=== PATIENT | female | born 1945 | race Caucasian/White ===

== ENCOUNTER 2019-05-24 17:28 | Emergency (ER) | payer MEDICARE, MEDICAID, SELFPAY ==
[2019-05-24 17:30] VITALS: BP 167/99; PULSE 103; RESP 18; TEMP 36.6; O2SAT 93; BMI 43.2
[2019-05-24 17:39] VITALS: BP 166/101; PULSE 87; RESP 16; O2SAT 82; O2SAT 96
--- NOTE | 2019-05-24 17:42 | ED_ITS ---
HPI - Back Pain/Injury General: Chief Complaint: Back Pain/Injury Stated Complaint: RIGHT SIDE BACK PAIN S/P FALL Time Seen by Provider: 05/24/19 17:42 History of Present Illness: HPI Narrative: Patient states she was getting out of bed to put on her panties and brawl this morning and at 930 she twisted and fell backwards striking her back on the floor she has been able to move today but her low back is hurt. Family decided she should come in and get evaluated patient says her low back hurts denies any pain radiate out anywhere problems urination no nausea and vomiting and she fell because she tripped while she is try to stick her foot inside her panties MD elicited complaint: back pain, back injury and fall Pertinent past history: prior back pain Onset (ago): hour(s) (0 930) Timing: constant Severity: moderate Pain scale (0-10): 6 Similar Symptoms Previously: Yes Quality: aching Location: lumbar spine Radiation: none Exacerbating factors: movement and walking Relieving factors: immobilization Context: turning/twisting and fall Associated symptoms: Reports no associated symptoms; Deny abdominal pain, chills, fever(s), nausea or vomiting Work related injury: No Review of Systems Const: Denies: fever, chills or body aches Eyes: Denies: change in vision or blurry vision ENMT: Denies: throat pain or nasal congestion Card: Reports: other; Denies: chest pain or shortness of breath on exertion Resp: Denies: shortness of breath, productive cough or non-productive cough GI: Denies: abdominal pain, nausea or vomiting Musc: Reports: back pain; Denies: extremity pain Skin/Breast: Denies: rash Neuro: Denies: headache Psych: Denies: anxiety or depression Hamlet/Lymph: Denies: easy bruising PFSH ED PFSH: Social History Smoking and tobacco status: former smoker Physical Exam Const: COMMON NORMALS: no apparent distress, average body habitus and oriented x3 HENMT: COMMON NORMALS: normocephalic HEAD & SCALP: normal to inspection and normocephalic FACE & SINUS: normal facial exam Eye: COMMON NORMALS: conjunctivae normal GENERAL EYE: normal appearance of both eyes CONJUNCTIVA: Yes conjunctivae normal Neck/C-Spine: COMMON NORMALS: no JVD Chest: COMMONS NORMALS: inspection of chest normal Resp: COMMON NORMALS: normal respiratory effort and clear to auscultation bilaterally AUSCULTATION: clear to auscultation bilaterally Cardio: COMMON NORMALS: no JVD, regular rate and regular rhythm RATE: regular rate RHYTHM: regular rhythm GI: COMMON NORMALS: normal to inspection, nondistended, normoactive bowel sounds Back/Pelvis: LUMBAR SPINE/LOWER BACK: Yes normal to inspection, Yes pain with ROM and Yes lumbar spinal tenderness Extremity: COMMON NORMALS: normal to inspection and full ROM Neuro: COMMON NORMALS: oriented x3 Course Vital Signs: Vital signs: Vital Signs Temperature 97.9 F 05/24/19 17:30 Pulse Rate 87 05/24/19 17:39 Respiratory Rate 16 05/24/19 17:39 Blood Pressure 166/101 05/24/19 17:39 Pulse Oximetry 96 05/24/19 17:39 MDM - Back Pain/Injury Imaging Data^: Other Xray: My impression: Lumbar with no fracture, decreased vertrebral body height t12 Coding Level of Care Code ED 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
--- NOTE | 2019-05-24 17:46 | XR_ITS ---
WS: [id number] LUMBAR SPINE: 3 VIEWS TECHNIQUE: AP, lateral and L5-S1 spot. HISTORY: fall COMPARISON: None available. Posterior alignment is normal. Mild disc space narrowing at L5-S1 with facet arthritis. T12 compressi on fracture is new since 05/30/2007. Age indeterminate. No retropulsion. No loss of disc space or vertebral body height. Lucency extending obliquely through the LEFT sacrum towards the SI joint. Lucency extends across the midline. Bilateral hip arthroplasties. XR/XR lumbar spine 2-3V* [id number] IMPRESSION: 1. No acute lumbar spine fracture. 2. Age-indeterminate 20% compression fracture T12. 3. Possible sacral fracture. If patient has persistent pelvic pain recommend f ollow-up CT evaluation.
[2019-05-24] MEDS: cloNIDine 0.1 mg Tablet 0.2 MG PO (19:11)
[2019-05-24] MEDS: ketorolac 60 mg/2 mL INJ IM (19:12)
== END 2019-05-24 19:38 | disposition home or self-care (01) ==
LOC: ER 19:05
PROVIDERS: Emergency Provider Nurse Practitioner Family; Family Provider Physician Assistant Medical; PCP Physician Assistant Medical
DX: M54.5 Low back pain (principal); I10 Essential (primary) hypertension; Z87.891 Personal history of nicotine dependence
CPT/HCPCS: 12345; 72100; 96372; 99281; 99282; 99283; J1885

== ENCOUNTER → 2019-06-11 08:21 | Outpatient (BNVA) | payer MEDICARE, MEDICAID, SELFPAY | PROVIDERS: Family Provider Physician Assistant Medical; PCP Physician Assistant Medical; Visit Provider Specialist | DX: G43.711 Chronic migraine without aura, intractable, with status migrainosus (principal); F44.5 Conversion disorder with seizures or convulsions | CPT/HCPCS: 64615; 99212; J0585 ==

== ENCOUNTER → 2019-09-03 09:29 | Outpatient (BNVA) | payer MEDICARE, MEDICAID, SELFPAY | PROVIDERS: Family Provider Physician Assistant Medical; PCP Physician Assistant Medical; Visit Provider Specialist | DX: G43.711 Chronic migraine without aura, intractable, with status migrainosus (principal); F44.5 Conversion disorder with seizures or convulsions | CPT/HCPCS: 64615; 99212; J0585 ==

== ENCOUNTER → 2020-01-21 09:22 | Outpatient (BNVA) | payer MEDICARE, MEDICAID, SELFPAY | PROVIDERS: Family Provider Physician Assistant Medical; PCP Physician Assistant Medical; Visit Provider Specialist | DX: G24.3 Spasmodic torticollis (principal); G25.0 Essential tremor; G43.711 Chronic migraine without aura, intractable, with status migrainosus | CPT/HCPCS: 64615; 99213; J0585 ==

== ENCOUNTER 2020-04-28 10:06 | Emergency (ER) | payer MEDICARE, MEDICAID, SELFPAY ==
[2020-04-28 10:14] VITALS: BP 138/90; PULSE 72; RESP 20; TEMP 36.6; O2SAT 95; BMI 34.7
[2020-04-28 10:22] VITALS: BP 138/90; PULSE 76; RESP 18; O2SAT 98
[2020-04-28 10:23] VITALS: PULSE 78
--- NOTE | 2020-04-28 10:23 | CT_ITS ---
WS: [id number] CT HEAD TECHNIQUE: Noncontrast CT of the head obtained from the skullbase to the vertex. CLINICAL INFORMATION: fall, hit head COMPARISON: 10 ,019 DLP: 788.[address] scans at [facility] use at least one of these dose optimization techniques: automat ed exposure control; mA and/or kV adjustment per patient size (includes targeted exams where dose is matched to clinical indication); or iterative reconstruction. FINDINGS: No evidence of intracranial hemorrhage or mass effect. Ventricular system and basal cisterns are elise nt. Mild small vessel changes with moderate parenchymal volume loss. Intracranial vascular calcificat ion. No extra-axial fluid collections. No evidence of mass or mass effect. Normal zambrano-white differen tiation. Mild mucosal thickening ethmoid air cells and right maxillary sinus. Mastoid air cells well aerated. CT/CT head wo con* [id number] IMPRESSION: 1. No evidence of intracranial hemorrhage or mass effect. 2. Mild small vessel changes. Moderate parenchymal volume loss worse in the fr ontal lobes. 3. No acute intracranial findings.
--- NOTE | 2020-04-28 10:23 | XR_ITS ---
WS: [id number] XR hand RT min 3V* [id number] REASON FOR EXAM: fall, trauma FINDINGS: Transverse nondisplaced fracture through the base of the first phalanx of the right fourth finger. Mild degenerative changes in the DIP and MIP joints. No soft tissue abnormality. XR/XR hand RT min 3V* [id number] IMPRESSION: Fracture fourth finger as above.
--- NOTE | 2020-04-28 10:26 | ED_ITS ---
HPI - Extremity Problem General: Chief complaint: Extremity Injury, Upper Stated complaint: FALL/ HAND PAIN Time Seen by Provider: 04/28/20 10:09 History of Present Illness: HPI Narrative: Patient arrives via ambulance with complaint of a fall today she tripped and while she was trying to get to her walker and she said she bent her right to middle fingers back and then sustained a laceration to her hand at the same time. Also hit the right side of her fore head denies loss of consciousness. Complaint: extremity pain and other (Hit head) Onset (ago): minute(s) Pain Consistency: now resolved Location: right and upper extremity Severity scale (1-10): 2 Quality: aching Radiation: none Associated symptoms: Reports no associated symptoms; Deny chest pain, fever(s) or rash Review of Systems Const: Denies: fever(s), chills or body aches Eyes: Denies: change in vision or blurry vision ENMT: Denies: throat pain or nasal congestion Card: Denies: chest pain or dyspnea on exertion Resp: Denies: dyspnea, productive cough or non-productive cough GI: Denies: abdominal pain, nausea or vomiting Musc: Reports: extremity pain (Right hand pain with laceration to palm from fall) Skin/Breast: Denies: rash Neuro: Denies: headache(s) Psych: Denies: anxiety or depression Hamlet/Lymph: Denies: easy bruising PFSH ED PFSH: Medical History COPD (chronic obstructive pulmonary disease) Diabetes Hyperlipidemia Hypertension Surgical History History of appendectomy History of History of cholecystectomy History of hip replacement History of hysterectomy History of knee replacement Family History Mother CAD (coronary artery disease) Diabetes Social History Smoking and tobacco status: never smoked Alcohol intake: current Alcohol intake frequency: other History of recent travel: No Physical Exam Const: COMMON NORMALS: no acute distress, average body habitus and patient oriented x3 HENMT: COMMON NORMALS: normocephalic HEAD & SCALP: normal to inspection and normocephalic FACE & SINUS: normal facial exam Eye: COMMON NORMALS: conjunctivae normal GENERAL EYE: appearance normal, both eyes and all related structures CONJUNCTIVA: Yes conjunctivae normal Neck/C-Spine: COMMON NORMALS: no JVD Chest: COMMONS NORMALS: normal inspection of the chest Resp: COMMON NORMALS: normal respiratory effort and clear to auscultation bilaterally AUSCULTATION: clear to auscultation bilaterally Cardio: COMMON NORMALS: no JVD, regular rate and regular rhythm RATE: regular rate RHYTHM: regular rhythm GI: COMMON NORMALS: Normal to inspection, nondistended, normoactive bowel sounds present Extremity: COMMON NORMALS: normal to inspection and full ROM RIGHT UPPER EXTREMITY: Yes hand & digits (Patient able to move all digits neurovascular intact no swelling) Neuro: COMMON NORMALS: patient oriented x3, CN's II-XII intact bilaterally, moves all extremities, no focal motor deficits and no sensory deficits noted Skin: NARRATIVE SKIN EXAM: Large laceration horizontally across palm of right hand no active bleeding OTHER: General right side of forehead Procedures Laceration Laceration 1: Site: hand Side (If applicable): right Size (cm): 6 Description: linear Depth: simple, single layer Local Anesthetic: lidocaine 1% Amount of anesthesia used (mL): 2 Pre-repair: wound explored, irrigated extensively and deep structures intact Skin layer closed with: vicryl Size (cm): 4-0 Number of sutures: 7 Technique: simple, interrupted Course Vital Signs: Vital signs: Vital Signs Temperature 97.8 F 04/28/20 10:14 Pulse Rate 78 04/28/20 10:23 Respiratory Rate 18 04/28/20 10:22 Blood Pressure 138/90 04/28/20 10:22 Pulse Oximetry 98 04/28/20 10:22 MDM - Extremity (Nontraumatic) MDM Narrative: Medical decision making narrative: CT the head was negative. Laceration across the palm could have possibly involved open fracture from that fourth phalanges but most likely not .sutures were done and wound was not tightly sutured due to possibility of open fracture. Patient able to move f ingers without difficulty has minimal pain no other injuries noted is follow-up orthopedic clinics for follow-up etiology said fracture was nondisplaced Discharge Plan Discharge Patient Disposition: Home Clinical Impression: Laceration Fall Qualifiers: Encounter type: initial encounter Qualified Code(s): W19.XXXA - Unspecified fall, initial encounter Open displaced fracture of phalanx of ring finger Qualifiers: Encounter type: initial encounter Phalanx: proximal Laterality: right Qualified Code(s): S62.614B - Displaced fracture of proximal phalanx of right ring finger, initial encounter for open fracture Condition: Stable Prescriptions: New tramadol 50 mg tablet 50 mg PO TID PRN (Reason: pain) Qty: 7 RF: 0 Keflex 500 mg capsule 500 mg PO TID 7 Days Qty: 21 RF: 0 No Action ammonium lactate 12 % cream 1 applic TOPICAL DAILY RF: 0 aspirin [Adult Low Dose Aspirin] 81 mg tablet,delayed release (DR/EC) 81 mg PO DAILY RF: 0 calcium carbonate 500 mg calcium (1,250 mg) tablet 500 mg PO BID RF: 0 dicyclomine 20 mg tablet 20 mg PO QID RF: 0 furosemide 20 mg tablet 10 mg PO QAM RF: 0 gabapentin 600 mg tablet 600 mg PO BID RF: 0 loratadine [Allergy Relief (loratadine)] 10 mg tablet 10 mg PO DAILY RF: 0 pantoprazole 40 mg tablet,delayed release (DR/EC) 40 mg PO DAILY RF: 0 potassium chloride 10 mEq tablet extended release 20 meq PO BID RF: 0 ropinirole 0.5 mg tablet 1 mg PO DAILY RF: 0 simvastatin 40 mg tablet 40 mg PO DAILY RF: 0 Spiriva with HandiHaler 18 mcg capsule, w/inhalation device 1 cap INHALATION DAILY RF: 0 tizanidine 4 mg capsule 4 mg PO Q8H PRNRF: 0 topiramate [Topamax] 100 mg tablet 100 mg PO BID RF: 0 tramadol 50 mg tablet 50 mg PO Q8H PRNRF: 0 albuterol sulfate [Ventolin HFA] 90 mcg/actuation HFA aerosol inhaler 2 puff INHALATION Q6H PRNRF: 0 ascorbic acid (vitamin C) 500 mg capsule, extended release 500 mg PO DAILY RF: 0 cholecalciferol (vitamin D3) 50 mcg (2,000 unit) capsule 50 mcg PO DAILY RF: 0 Discharge Orders: Discharge ED (Routine); Ordered 04/28/20 Ordered By: Patricio Bustos Referrals: Salvador Bertrand [Primary Care Provider] - Discharge Diet: Usual diet Discharge Activity: Increase activity as tolerated Patient Instructions: Laceration (ED), Finger Fracture (ED), Opioid Safety Activity Restrictions/Additional Instructions: Follow-up with medical provider as directed. Take medications as prescribed. Return to the ER or your medical provider if condition worsens. Please read and understand discharge instructions. If any questions ask please. Wear splint until seen by orthopedics. Watch for signs symptoms of infection in the palm. Coding Level of Care Code ED Facilities Maintenance Worker for Milton Parry Exam Comprehensive
[2020-04-28] MEDS: lidocaine 1% INJ 20 mL 5 ML INTRADERMA (10:50)
[2020-04-28] MEDS: TRAMadol 50 mg Tablet PO (11:31)
[2020-04-28] MEDS: cephALEXin 500 mg Capsule PO (11:31)
--- NOTE | 2020-04-28 12:30 | DCPLANNER ---
senior asset manager had message to schedule a follow up appointment for patient with ortho. senior asset manager called the ortho clinic, spoke with Argelia, gave clinic patients information. senior asset manager was told that patients information would be printed and reviewed. Clinic will call patient with appointment information.
--- NOTE | 2020-05-04 07:37 | DCPLANNER ---
Patient has a follow up appointment scheduled for Monday, May 04, 2020 at 10:[address] Sesay. Clinic will call patient with appointment information.
--- NOTE | 2020-05-05 15:55 | DCPLANNER ---
Patient had a follow up appointment scheduled for 05.04.[address] Sesay at [facility] - patient did attend appointment.
== END 2020-04-28 12:03 | disposition home or self-care (01) ==
PROVIDERS: Emergency Provider Nurse Practitioner Family; PCP Family Medicine
DX: S62.614B Displaced fracture of proximal phalanx of right ring finger, initial encounter for open fracture (principal); Z79.82 Long term (current) use of aspirin; S61.411A Laceration without foreign body of right hand, initial encounter; W01.0XXA Fall on same level from slipping, tripping and stumbling without subsequent striking against object, initial encounter; J44.9 Chronic obstructive pulmonary disease, unspecified; E11.9 Type 2 diabetes mellitus without complications; E78.5 Hyperlipidemia, unspecified; I10 Essential (primary) hypertension
CPT/HCPCS: 12002; 29125; 70450; 73130; 99283

== ENCOUNTER → 2020-05-04 11:04 | Outpatient (BNVA) | payer MEDICARE, MEDICAID, SELFPAY | PROVIDERS: PCP Family Medicine; Referring Provider Nurse Practitioner Family; Visit Provider Orthopaedic Surgery | DX: S62.614B Displaced fracture of proximal phalanx of right ring finger, initial encounter for open fracture (principal); W19.XXXA Unspecified fall, initial encounter; Z46.89 Encounter for fitting and adjustment of other specified devices; X58.XXXD Exposure to other specified factors, subsequent encounter | CPT/HCPCS: 73130; 97760; L3984 ==

== ENCOUNTER 2020-05-04 14:37 | Outpatient (CLI) | payer MEDICARE, MEDICAID, SELFPAY | END 2020-05-04 14:38 | disposition home or self-care (01) | LOC: SPT 14:37 | PROVIDERS: PCP Family Medicine; Visit Provider Orthopaedic Surgery | DX: Z46.89 Encounter for fitting and adjustment of other specified devices (principal); S62.614B Displaced fracture of proximal phalanx of right ring finger, initial encounter for open fracture; X58.XXXD Exposure to other specified factors, subsequent encounter | CPT/HCPCS: 97760; L3984 ==

== ENCOUNTER → 2020-05-11 10:31 | Outpatient (BNVA) | payer MEDICARE, MEDICAID, SELFPAY | PROVIDERS: PCP Family Medicine; Visit Provider Orthopaedic Surgery | DX: S62.614A Displaced fracture of proximal phalanx of right ring finger, initial encounter for closed fracture (principal); W19.XXXA Unspecified fall, initial encounter | CPT/HCPCS: 73130 ==

== ENCOUNTER → 2020-05-12 11:04 | Outpatient (BNVA) | payer MEDICARE, MEDICAID, SELFPAY | PROVIDERS: PCP Family Medicine; Visit Provider Specialist | DX: G43.711 Chronic migraine without aura, intractable, with status migrainosus (principal); G24.3 Spasmodic torticollis; G25.0 Essential tremor | CPT/HCPCS: 64615; 64616; J0585 ==

== ENCOUNTER → 2020-06-01 10:15 | Outpatient (BNVA) | payer MEDICARE, MEDICAID, SELFPAY | PROVIDERS: PCP Family Medicine; Visit Provider Orthopaedic Surgery | DX: S62.614A Displaced fracture of proximal phalanx of right ring finger, initial encounter for closed fracture (principal); W19.XXXA Unspecified fall, initial encounter; X58.XXXA Exposure to other specified factors, initial encounter | CPT/HCPCS: 73130 ==

== ENCOUNTER 2020-06-06 09:09 | Emergency (ER) | payer MEDICARE, MEDICAID, SELFPAY ==
[2020-06-06 09:11] VITALS: BP 140/82; PULSE 79; RESP 16; O2SAT 95; BMI 33.0
--- NOTE | 2020-06-06 09:13 | ECG_ITS ---
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 f
--- NOTE | 2020-06-06 09:13 | XR_ITS ---
NOTE: Report was unsigned for reason: Order was edited. Original Signature date and time was: 06/06/20 @ 928 WS: [id number] Exam: XR hip RIGHT 2-3V wo/w pel* [id number] Date/Time of Exam: 06/06/2020 9:13 AM Reason For Exam: pain after fall A total hip prosthesis is in place in satisfactory position. No sign of fracture or loosening. Soft tissues are unremarkable. [facility] RT 2-3V wo/w pel* [id number] IMPRESSION: 1. Total hip arthroplasty intact. No fracture or loosening.
--- NOTE | 2020-06-06 09:13 | CT_ITS ---
WS: [id number] CT HEAD NONCONTRAST HISTORY: closed head injury TECHNIQUE: Contiguous axial imaging performed through the brain in 2.5 mm imaging. Bone and soft tiss ue windows. Sagittal and coronal reformats reviewed. All CT scans at [facility] use at ast one of these dose optimization techniques: automated exposure control; mA and/or kV adjustment pe r patient size (includes targeted exams where dose is matched to clinical indication); or iterative r econstruction. DLP: 802.1 mGy.cm COMPARISON: None available. No acute intracranial hemorrhage, midline shift or mass effect. Moderate atrophy with mild chronic microvascular ischemic changes. No large territory infarct. Ventricles: Normal size with no hydrocephalus. Moderate atherosclerosis in the distal vertebral and distal intracranial carotid arteries. Paranasal sinuses: As visualized are clear. Mastoid air cells: Well pneumatized. Calvarium and scalp: No calvarial fracture. There is a large acute hematoma measuring 2.1 x 3.5 cm ce ntered over the lateral RIGHT orbit. Hematoma extends preseptal but there is no displacement of the g lobe. No fracture identified. No air-fluid levels in the adjacent sinus. CT/CT head wo con* [id number] IMPRESSION: 1. No acute intracranial hemorrhage or edema. 2. Large hematoma centered over the RIGHT orbit and frontal bone. No associate d fractures.
--- NOTE | 2020-06-06 09:13 | CT_ITS ---
WS: [id number] CT CERVICAL SPINE HISTORY: pain after fall TECHNIQUE: Contiguous 2.5 mm axial imaging performed through the entire cervical spine. Sagittal and coronal reformats also performed. All CT scans at [facility] use at least one of these do se optimization techniques: automated exposure control; mA and/or kV adjustment per patient size (inc ludes targeted exams where dose is matched to clinical indication); or iterative reconstruction. DLP: 824.44 mGy.cm COMPARISON: None available. Straightening of the normal lordosis. No acute fractures. Moderate disc space narrowing at C4-5, C5-6 and C6-7. C1 and C2 lateral masses are aligned odontoid is intact. Craniocervical junction is normal . C2-C3: Moderate LEFT facet joint arthritis and foraminal narrowing. C3-C4: Normal. C4-C5: Moderate LEFT foraminal stenosis and facet joint arthritis. C5-C6: Diffuse osteophytic ridging and annular disc bulging with facet joint arthritis. Central disc protrusion. Findings result in moderate central and bilateral foraminal stenosis, LEFT greater than R IGHT. C6-C7: Diffuse annular disc bulging with mild foraminal narrowing. C7-T1: Normal. Soft tissues are normal. Lung apices are clear. CT/CT cervical spin wo con* [id number] IMPRESSION: 1. No cervical spine fractures identified. 2. Multilevel areas of central and foraminal stenosis. Most significant at C5- 6.
[2020-06-06 09:29] LABS: Basophils % 0.7 %; Eosinophils # 0.1 10^3/uL (0.0-0.8); Eosinophils % 2.1 %; Hematocrit 45.3 % (37.0-47.0); Hemoglobin 14.7 g/dL (11.5-15.3); Lymphocytes # 2.3 10^3/uL (0.8-4.8); Lymphocytes % 40.5 %; Mean Corpuscular HGB Conc 32.5 g/dL (30.0-36.0); Mean Corpuscular Hemoglobin 31.3 pg (28.0-34.0); Mean Corpuscular Volume 96.6 fL (81-99); Mean Platelet Volume 11.4 fL (7.4-10.4); Monocytes # 0.4 10^3/uL (0.2-0.9); Monocytes % 6.9 %; Neutrophils # 2.79 10^3/uL (1.8-7.7); Neutrophils % 49.4 %; Nucleated Red Blood Cells % 0 %; Platelet Count 215 10^3/cmm (130-400); Red Blood Count 4.69 10^6/uL (4.1-5.3); White Blood Count 5.7 10^3/uL (4.0-10.0)
--- NOTE | 2020-06-06 09:33 | W.ED.FALL ---
HPI - Fall General: Chief Complaint: Fall Stated Complaint: FALL WITH HEAD TRAUMA Time Seen by Provider: 06/06/20 09:09 History of Present Illness: HPI Narrative: 74-year-old female presents emergency room with complaints of fall. She has a hematoma above her right eye is also complaining some right hip pain. She had a mechanical fall when her walker got tied up on some stairs. She denies loss of consciousness she is not on any anticoagulants. She denies any other injuries. MD complaint: fall Onset (ago): minute(s) Fall from: standing Fall witnessed: no Place fall occurred: home Loss of consciousness: None Prolonged down time: no Context: tripped/slipped Location of injury: head Location of injury - extremities: Right: shoulder and lower leg (Hip) Severity: mild Quality: aching Associated symptoms-after fall: Reports difficulty walking (Patient has baseline difficulty with gait uses walker); Denies abdominal pain, chest pain, confusion, headache(s), hematuria, lightheadedness, neck pain, numbness, short of breath or vertigo Review of Systems Const: Denies: fever(s), chills, body aches, change in appetite, fatigue or malaise ENMT: Denies: throat pain, ear or mastoid pain, nasal discharge or nasal congestion Card: Denies: chest pain or lightheadedness Resp: Denies: dyspnea, productive cough or non-productive cough GI: Denies: abdominal pain : Denies: hematuria Musc: Denies: neck pain Skin/Breast: Denies: rash or pruritus Neuro: Reports: difficulty walking (Patient has baseline difficulty with gait uses walker); Denies: headache(s), vertigo or confusion [facility] ED PFSH: Medical History COPD (chronic obstructive pulmonary disease) Diabetes Hyperlipidemia Hypertension Surgical History History of appendectomy History of History of cholecystectomy History of hip replacement History of hysterectomy History of knee replacement Family History Mother CAD (coronary artery disease) Diabetes Social History Smoking and tobacco status: never smoked Alcohol intake: current Alcohol intake frequency: other History of recent travel: No Physical Exam Const: COMMON NORMALS: no acute distress GENERAL APPEARANCE: cooperative and comfortable ORIENTATION/CONSCIOUSNESS: Yes awake, Yes oriented to person, Yes oriented to place and Yes oriented to time HENMT: COMMON NORMALS: normocephalic, hearing grossly normal bilaterally, external ears normal, EAC's normal, TM's normal bilaterally, Normal nasal mucous membranes and turbinates present, moist oral mucous membranes and oropharynx normal HEAD & SCALP: normocephalic NOSE: Normal nasal mucous membranes and turbinates present EXTERNAL EAR: Yes external ears normal EXTERNAL AUDITORY CANAL: EAC's normal TYMPANIC MEMBRANE: TM's normal bilaterally OTHER: Right lateral supraorbital ridge hematoma no step-offs no crepitus no obvious fracture extraocular movements are intact Eye: COMMON NORMALS: Equal, round and reactive pupils present, EOMs intact bilaterally, conjunctivae normal and no scleral icterus CONJUNCTIVA: Yes conjunctivae normal PUPIL: Yes Equal, round and reactive pupils present Neck/C-Spine: COMMON NORMALS: full ROM, no lymphadenopathy, supple and no JVD Lymph: LYMPHATIC: no lymphadenopathy noted and no lymphedema noted Resp: COMMON NORMALS: normal respiratory effort, No retractions, No use of accessory muscles and clear to auscultation bilaterally AUSCULTATION: clear to auscultation bilaterally Cardio: COMMON NORMALS: no JVD, regular rate, regular rhythm and No murmurs present (Cardio) RATE: regular rate RHYTHM: regular rhythm GI: COMMON NORMALS: Soft to palpation and No hepatosplenomegaly present AUSCULTATION: Yes normoactive bowel sounds PALPATION: Yes Soft to palpation, No Tenderness to palpation present (GI), No Guarding due to palpation present (GI) and Yes No hepatosplenomegaly present Extremity: COMMON NORMALS: normal to inspection, capillary refill normal, no clubbing, cyanosis or edema, no calf tenderness and no pedal edema Neuro: SENSORIUM/ORIENTATION: Yes oriented to person, Yes oriented to place and Yes oriented to time Skin: COMMON NORMALS: no rashes or lesions noted GENERAL SKIN EXAM: no rashes or lesions noted Course Vital Signs: Vital signs: Vital Signs Pulse Rate 87 06/06/20 10:22 Respiratory Rate 16 06/06/20 09:11 Blood Pressure 158/84 06/06/20 10:22 Pulse Oximetry 99 06/06/20 10:22 MDM - Fall MDM Narrative: Medical decision making narrative: No acute fractures imaging negative we will go and discharge patient home. Ice to the area Tylenol or ibuprofen as needed. Return if has any problems. Lab Data: Attestation: I reviewed the patient's lab results. Labs: Lab Results 06/06/20 06/06/20 06/06/20 Range/Units 08:33 08:33 10:18 WBC 5.7 (4.0-10.0) 10^3/ uL RBC 4.69 (4.1-5.3) 10^6/u L Hgb 14.7 (11.5-15.3) g/dL Hct 45.3 (37.0-47.0) % MCV 96.6 (81-99) fL MCH 31.3 (28.0-34.0) pg MCHC 32.5 (30.0-36.0) g/dL RDW 14.0 (12.1-15.1) % Plt Count 215 (130-400) 10^3/c mm MPV 11.4 H (7.4-10.4) fL Neut % (Auto) 49.4 % Lymph % (Auto) 40.5 % [place] % (Auto) 6.9 % Eos % (Auto) 2.1 % Baso % (Auto) 0.7 % Neut # (Auto) 2.79 (1.8-7.7) 10^3/u L Lymph # (Auto) 2.3 (0.8-4.8) 10^3/u L [place] # (Auto) 0.4 (0.2-0.9) 10^3/u L Eos # (Auto) 0.1 (0.0-0.8) 10^3/u L Baso # (Auto) 0.0 (0.0-0.1) 10^3/u L Nucleated RBC % (a uto) 0 % Nucleated RBCs # 0.0 /100WBC Sodium 141 (136-145) mmol/L Potassium 3.6 (3.5-5.1) mmol/L Chloride 103 (98-107) mmol/L Carbon Dioxide 24 (22-29) mmol/L Anion Gap 17.6 (5-19) BUN 10 (8-23) mg/dL Creatinine 0.9 (0.5-0.9) mg/dL GFR Calculation Not Reportable Glucose 119 H (65-115) mg/dL Calculated Osmolal ity 292 (285-295) mOsm/k g Calcium 9.4 (8.5-10.5) mg/dL Total Bilirubin 0.9 (0.15-1.2) mg/dL AST 21 (0-32) U/L ALT 12 (0-33) U/L Alkaline Phosphata se 61 (35-105) IU/L Total Protein 7.6 (6.6-8.7) g/dL Albumin 4.4 (3.5-5.2) g/dL Globulin 3.2 (1.3-4.6) g/dL Urine Color Yellow (Yellow) Urine Appearance Hazy A (CLEAR) Urine pH 5 (5-7) Ur Specific Gravit y 1.025 (1.005-1.030) Urine Protein Neg (Negative) Urine Glucose (UA) Norm (Normal) Urine Ketones Negative (Negative) Urine Blood Neg (Negative) Urine Nitrate Positive H (Negative) Urine Bilirubin Neg (Negative) Urine Urobilinogen Norm (Negative) mg/dL Ur Leukocyte [place] 1+ H (Negative) Urine RBC 0-4 H (0-2) /hpf Urine WBC 40-55 H (0-5) /hpf Ur Squamous Epith Cells 0-4 H (0-5) /hpf Amorphous Sediment Not Reportable Urine Bacteria 4+ H (NONE) /hpf Discharge Plan Discharge Patient Disposition: Home Clinical Impression: Fall, Closed head injury, Diabetes Condition: Stable Prescriptions: No Action ammonium lactate 12 % cream 1 applic TOPICAL DAILY RF: 0 aspirin [Adult Low Dose Aspirin] 81 mg tablet,delayed release (DR/EC) 81 mg PO DAILY RF: 0 calcium carbonate 500 mg calcium (1,250 mg) tablet 500 mg PO BID RF: 0 dicyclomine 20 mg tablet 20 mg PO QID RF: 0 furosemide 20 mg tablet 10 mg PO QAM RF: 0 gabapentin 600 mg tablet 600 mg PO BID RF: 0 loratadine [Allergy Relief (loratadine)] 10 mg tablet 10 mg PO DAILY RF: 0 pantoprazole 40 mg tablet,delayed release (DR/EC) 40 mg PO DAILY RF: 0 potassium chloride 10 mEq tablet extended release 20 meq PO BID RF: 0 ropinirole 0.5 mg tablet 1 mg PO DAILY RF: 0 simvastatin 40 mg tablet 40 mg PO DAILY RF: 0 Spiriva with HandiHaler 18 mcg capsule, w/inhalation device 1 cap INHALATION DAILY RF: 0 tizanidine 4 mg capsule 4 mg PO Q8H PRNRF: 0 topiramate [Topamax] 100 mg tablet 100 mg PO BID RF: 0 tramadol 50 mg tablet 50 mg PO Q8H PRNRF: 0 albuterol sulfate [Ventolin HFA] 90 mcg/actuation HFA aerosol inhaler 2 puff INHALATION Q6H PRNRF: 0 ascorbic acid (vitamin C) 500 mg capsule, extended release 500 mg PO DAILY RF: 0 cholecalciferol (vitamin D3) 50 mcg (2,000 unit) capsule 50 mcg PO DAILY RF: 0 (DME) Fast Form ulnar gutter See Rx Instructions .ROUTE .MEDSUPPLY Qty: 1 RF: 0 oxycodone-acetaminophen [Percocet] 5-325 mg tablet 1 tab PO Q4H PRN (Reason: pain) 7 Days Qty: 40 RF: 0 tramadol 50 mg tablet 50 mg PO TID PRN (Reason: pain) Qty: 7 RF: 0 Discharge Orders: Discharge ED (Routine); Ordered 06/06/20 Ordered By: Jose Clark Referrals: Salvador Bertrand [Primary Care Provider] - Discharge Diet: Usual diet Discharge Activity: Resume usual activity Patient Instructions: Opioid Safety Coding Level of Care Code ED 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
--- NOTE | 2020-06-06 09:34 | XR_ITS ---
WS: [id number] Exam: XR shoulder RT min 2V* [id number] Date/Time of Exam: 06/06/2020 9:34 AM Reason For Exam: pain No acute fracture or dislocation. There are 2 anchoring screws in the humeral head. Soft tissue calci fication along the humeral head suggesting calcific tendinitis or bursitis. Degenerative changes at t he AC joint. XR/XR shoulder RT min 2V* [id number] IMPRESSION: 1. No fracture or dislocation. 2. Soft tissue calcification along the humeral head suggesting calcific bursiti s and/or tendinitis.
[2020-06-06 09:45] VITALS: O2SAT 98
[2020-06-06 09:49] LABS: Alanine Aminotransferase 12 U/L (0-33); Albumin Level 4.4 g/dL (3.5-5.2); Alkaline Phosphatase 61 IU/L (35-105); Anion Gap 17.6 (5-19); Aspartate Amino Transferase 21 U/L (0-32); Blood Urea Nitrogen 10 mg/dL (8-23); Calcium 9.4 mg/dL (8.5-10.5); Carbon Dioxide 24 mmol/L (22-29); Chloride 103 mmol/L (98-107); Globulin 3.2 g/dL (1.3-4.6); Glucose 119 mg/dL (65-115); Osmolality Calculated 292 mOsm/kg (285-295); Potassium 3.6 mmol/L (3.5-5.1); Sodium 141 mmol/L (136-145); Total Bilirubin 0.9 mg/dL (0.15-1.2); Total Protein 7.6 g/dL (6.6-8.7)
[2020-06-06 10:22] VITALS: BP 158/84; PULSE 87; O2SAT 99
[2020-06-06 10:56] LABS: Add Urine Microscopic? YES; Bilirubin Urine Neg (Negative); Blood Urine Neg (Negative); Glucose Urine UA Norm (Normal); Ketones Urine Negative (Negative); Leukocyte Esterase Urine 1+ (Negative); Nitrate Urine Positive (Negative); Protein Urine Neg (Negative); Specific Gravity, Urine 1.025 (1.005-1.030); Urine Appearance Hazy (CLEAR); Urine Color Yellow (Yellow); Urobilinogen Urine Norm (Negative); pH Urine 5 (5-7)
[2020-06-06 10:57] LABS: Add Urine Culture? Yes; Bacteria Urine 4+ /hpf; RBC Urine 0-4 /hpf (0-2); Squamous Epithelial Cell Urine 0-4 /hpf (0-5); WBC Urine 40-55 /hpf (0-5)
[2020-06-06 12:14] VITALS: BP 155/83; PULSE 83; O2SAT 97
--- NOTE | 2020-06-06 12:28 | DCPLANNER ---
project program manager was asked to schedule a follow up appointment for patient with ortho for a fibular head fracture. project program manager called the ortho clinic, spoke with Argelia, gave clinic patients information. project program manager was told that patients information would be printed and reviewed. Clinic will call patient with appointment information.
--- NOTE | 2020-06-07 08:22 | DCPLANNER ---
Patient has a follow up appointment scheduled for Sunday, June 07, 2020 at 1:[address] Sesay at [facility]. Clinic will call patient with appointment information.
--- NOTE | 2020-06-08 10:53 | DCPLANNER ---
Patient had a follow up appointment scheduled for 06.07.[address] Sesay at [facility] - patient did not attend appointment.
== END 2020-06-06 12:27 | disposition home or self-care (01) ==
PROVIDERS: Emergency Provider Family Medicine; PCP Family Medicine
DX: S09.8XXA Other specified injuries of head, initial encounter (principal); E11.9 Type 2 diabetes mellitus without complications; Z79.82 Long term (current) use of aspirin; J44.9 Chronic obstructive pulmonary disease, unspecified; E78.5 Hyperlipidemia, unspecified; I10 Essential (primary) hypertension; W18.30XA Fall on same level, unspecified, initial encounter; Z79.899 Other long term (current) drug therapy
CPT/HCPCS: 70450; 72125; 73030; 73502; 80053; 81001; 85025; 87077; 87086; 87186; 93005; 99283

== ENCOUNTER → 2020-06-08 11:10 | Outpatient (BNVA) | payer MEDICARE, MEDICAID, SELFPAY | PROVIDERS: PCP Family Medicine; Visit Provider Specialist | DX: R26.81 Unsteadiness on feet (principal); W19.XXXA Unspecified fall, initial encounter; N39.0 Urinary tract infection, site not specified; Z71.89 Other specified counseling | CPT/HCPCS: 99214 ==

== ENCOUNTER 2020-06-08 13:15 | Outpatient (CLI) | payer MEDICARE, MEDICAID, SELFPAY | END 2020-06-08 13:16 | disposition home or self-care (01) | LOC: LAB 13:20 | PROVIDERS: PCP Family Medicine; Visit Provider Specialist | DX: N39.0 Urinary tract infection, site not specified (principal); R82.90 Unspecified abnormal findings in urine | CPT/HCPCS: 87077; 87086; 87186 ==

== ENCOUNTER 2020-07-26 15:42 | Outpatient (CLI) | payer MEDICARE, MEDICAID, SELFPAY ==
--- NOTE | 2020-07-26 15:50 | XR_ITS ---
WS: [id number] DEXA (DUAL ENERGY X-RAY ABSORPTIOMETRY) Bone mineral density was performed using a Genome machine. HISTORY: OSTEOPOROSIS, PATHOLOGICAL FRACTURE PRESENCE COMPARISON: 04/18/2016 Lumbar spine BMD (L1-L4): 1.157 g/cm2 T score: -0.2 Z score: 0.7 Left forearm BMD: 0.728 g/cm2. T score: -1.7 Z score: 0.6 Compared to the prior study from 04/18/2016. Lumbar spine bone mineral density has increased by 4.8%. Bilateral hips bone mineral density has increased by 3.6%. XR/XR DEXA axial skeleton* [id number] IMPRESSION: OSTEOPENIA based upon the WHO classification for females. Increase in bone mineral density in the lumbar spine and hips since the prior s tudy.
== END 2020-07-26 15:43 | disposition home or self-care (01) ==
PROVIDERS: PCP Family Medicine; Visit Provider Nurse Practitioner Family
DX: M81.0 Age-related osteoporosis without current pathological fracture (principal); M85.88 Other specified disorders of bone density and structure, other site
CPT/HCPCS: 77080

== ENCOUNTER → 2020-08-04 10:57 | Outpatient (BNVA) | payer MEDICARE, MEDICAID, SELFPAY | PROVIDERS: PCP Family Medicine; Visit Provider Specialist | DX: G43.711 Chronic migraine without aura, intractable, with status migrainosus (principal); G24.3 Spasmodic torticollis | CPT/HCPCS: 64615; 64616; J0585 ==

== ENCOUNTER → 2020-11-03 10:28 | Outpatient (BNVA) | payer MEDICARE, MEDICAID, SELFPAY | PROVIDERS: PCP Family Medicine; Visit Provider Specialist | DX: G24.3 Spasmodic torticollis (principal); G43.711 Chronic migraine without aura, intractable, with status migrainosus; F17.200 Nicotine dependence, unspecified, uncomplicated | CPT/HCPCS: 64615; 64616; J0585 ==

== ENCOUNTER → 2021-01-26 11:32 | Outpatient (BNVA) | payer MEDICARE, MEDICAID, SELFPAY | PROVIDERS: PCP Family Medicine; Visit Provider Specialist | DX: G43.711 Chronic migraine without aura, intractable, with status migrainosus (principal); G24.3 Spasmodic torticollis | CPT/HCPCS: 64615; 64616; J0585 ==

== ENCOUNTER → 2021-04-20 10:37 | Outpatient (BNVA) | payer MEDICARE, MEDICAID, SELFPAY | PROVIDERS: PCP Family Medicine; Visit Provider Specialist | DX: G43.711 Chronic migraine without aura, intractable, with status migrainosus (principal); F17.200 Nicotine dependence, unspecified, uncomplicated | CPT/HCPCS: 64615 ==

== ENCOUNTER → 2021-05-02 11:31 | Outpatient (BNVA) | payer MEDICARE, MEDICAID, SELFPAY | PROVIDERS: PCP Nurse Practitioner Family; Visit Provider Internal Medicine Cardiovascular Disease | DX: E11.9 Type 2 diabetes mellitus without complications; J44.9 Chronic obstructive pulmonary disease, unspecified; I50.9 Heart failure, unspecified; G25.0 Essential tremor; E78.2 Mixed hyperlipidemia; F17.210 Nicotine dependence, cigarettes, uncomplicated; I11.0 Hypertensive heart disease with heart failure | CPT/HCPCS: 99214 ==

== ENCOUNTER → 2021-07-13 10:17 | Outpatient (BNVA) | payer MEDICARE, MEDICAID, SELFPAY | PROVIDERS: PCP Nurse Practitioner Family; Visit Provider Specialist | DX: G43.711 Chronic migraine without aura, intractable, with status migrainosus (principal); G24.3 Spasmodic torticollis; F44.5 Conversion disorder with seizures or convulsions | CPT/HCPCS: 64615; J0585 ==

== ENCOUNTER 2021-09-23 07:36 | Inpatient (IN) | payer MEDICARE, MEDICAID, SELFPAY ==
[2021-09-23] VITALS (20 sets, daily range): BP systolic 133–176; BP diastolic 64–89; PULSE 63–93; RESP 16–20; TEMP 36.4–37.2; O2SAT 84–100; BMI 34.7; BMI 37.3
--- NOTE | 2021-09-23 07:38 | XRR_ITS ---
PROCEDURE INFORMATION: Exam: XR Right Knee Exam date and time: 09/23/2021 8:02 AM Age: 75 years old Clinical indication: Injury or trauma; Fall; Blunt trauma; Right; Prior surgery; Surgery date: 6+ months; Surgery type: Knee replacement TECHNIQUE: Imaging protocol: Radiologic exam of the Right knee. Views: 3 views. COMPARISON: No relevant prior studies available. FINDINGS: Bones/joints: A total knee prosthesis is present. There is an oblique fracture through the distal metaphysis of the femur above the prosthesis. The distal fragment is displaced about 4 cm laterally. Soft tissues: Normal. XR/XR knee RT 3V* [id number] IMPRESSION: Displaced oblique fracture of the distal metaphysis of the femur.
--- NOTE | 2021-09-23 07:41 | XRR_ITS ---
PROCEDURE INFORMATION: Exam: XR Right Hip Exam date and time: 09/23/2021 8:02 AM Age: 75 years old Clinical indication: Injury or trauma; Fall; Blunt trauma (contusions or hematomas); Right; Prior surgery; Surgery date: 6+ months; Surgery type: Total hip replacement TECHNIQUE: Imaging protocol: Radiologic exam of the Right hip. Views: 1 view hip with pelvis when performed. COMPARISON: CR XR hip RT 2-3V wo/w pel* [id number] 06/06/2020 9:16 AM FINDINGS: Bones/joints: A total right hip prosthesis projects in satisfactory position. No fracture, dislocation or other acute bony abnormality. Soft tissues: Unremarkable. XR/XR hip RT 2-3V wo/w pel* [id number] IMPRESSION: Satisfactory appearance of the hip prosthesis. No acute abnormality.
--- NOTE | 2021-09-23 07:53 | ED_ITS ---
HPI - Extremity Problem General: Chief complaint: Extremity Injury, Lower Stated complaint: RIGHT KNEE PAIN S/P FALL Time Seen by Provider: 09/23/21 07:38 Source: patient and EMS Mode of arrival: EMS Limitations: no limitations History of Present Illness: 75-year-old female who states that she was getting out of her wheelchair this morning and fell. States she fell directly on her knees states she twisted her right knee and has had severe knee pain since she was not able to stand or bear weight on that knee has some mild right hip pain as well denies hitting her head denies any other injuries at this time states her pain currently is an 8 out of 10 much worse with movement improved with rest. Associated symptoms: Deny chest pain, fever(s) or rash Review of Systems Const: Denies: fever(s), chills, body aches or change in appetite Eyes: Denies: blurry vision or eye discomfort ENMT: Denies: throat pain or dental pain Card: Denies: chest pain Resp: Denies: dyspnea GI: Denies: abdominal pain, nausea, vomiting or diarrhea : Denies: dysuria Musc: Reports: extremity pain Skin/Breast: Denies: rash Neuro: Denies: headache(s) Psych: Denies: depression [place]/Lymph: Denies: easy bruising All/Imm: Denies: urticaria PFSH ED PFSH: Medical History COPD (chronic obstructive pulmonary disease) Diabetes Hyperlipidemia Hypertension Surgical History History of appendectomy History of History of cholecystectomy History of hip replacement History of hysterectomy History of knee replacement Family History Mother CAD (coronary artery disease) Diabetes Social History Smoking and tobacco status: current every day smoker Alcohol intake: current Alcohol intake frequency: other History of recent travel: No Physical Exam Const: COMMON NORMALS: no acute distress, patient oriented x3 and healthy appearing HENMT: COMMON NORMALS: normocephalic and atraumatic HEAD & SCALP: normocephalic and atraumatic Eye: COMMON NORMALS: Equal, round and reactive pupils present and EOMs intact bilaterally PUPIL: Yes Equal, round and reactive pupils present Neck/C-Spine: COMMON NORMALS: full ROM and supple Chest: COMMONS NORMALS: normal inspection of the chest and normal palpation of entire chest wall Resp: COMMON NORMALS: normal respiratory effort, No retractions, No use of accessory muscles and clear to auscultation bilaterally AUSCULTATION: clear to auscultation bilaterally Cardio: COMMON NORMALS: regular rate, regular rhythm and No murmurs present (Cardio) RATE: regular rate RHYTHM: regular rhythm GI: COMMON NORMALS: Normal to inspection, nondistended, normoactive bowel sounds present, Soft to palpation, non-tender and no masses PALPATION: Yes Soft to palpation Extremity: NARRATIVE EXTREMITY EXAM: Tenderness and swelling over right knee distal pulses and sensation intact Neuro: COMMON NORMALS: patient oriented x3, moves all extremities and no focal motor deficits Psych: COMMON NORMALS: mental status grossly normal, Normal thought process pr esent and cooperative THOUGHT PROCESS: Normal thought process present Skin: COMMON NORMALS: no rashes or lesions noted and no wounds GENERAL SKIN EXAM: no rashes or lesions noted Course Vital Signs: Vital signs: Vital Signs Temperature 98.9 F 09/23/21 07:50 Pulse Rate 77 09/23/21 08:16 Respiratory Rate 20 H 09/23/21 07:58 Blood Pressure 154/88 09/23/21 08:16 Pulse Oximetry 84 L 09/23/21 08:16 Oxygen Delivery Me thod 09/23/21 07:50 Oxygen Flow Rate 2 09/23/21 07:50 MDM - Extremity (Nontraumatic) Medical Decision Making Patient presents here with distal femur fracture from a fall she has no other injuries I spoke to hospitalist along with orthopedist and will admit at this time. Lab Data Radiology Impressions Knee X-Ray 09/23/21 07:38 IMPRESSION: Displaced oblique fracture of the distal metaphysis of the femur. Hip/Pelvis X-Ray 09/23/21 07:41 IMPRESSION: Satisfactory appearance of the hip prosthesis. No acute abnormality. EKG Data EKG 1: I personally reviewed and interpreted this EKG as follows: EKG interpretation date: 09/23/21 EKG interpretation time: 08:27 Interpretation: nsr hr [address] or t wave abnormalities qrs 86 qtc 420 Discharge Plan Discharge Patient Disposition: Admitted As Inpatient Clinical Impression: Fall Femoral distal fracture Qualifiers: Encounter type: initial encounter Fracture type: closed Fracture morphology: unspecified fracture morphology Laterality: right Qualified Code(s): S72.401A - Unspecified fracture of lower end of right femur, initial encounter for closed fracture Condition: Stable Coding Level of Care Code ED 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
[2021-09-23] MEDS: ondansetron 2 mg/ML SDV 2 mL 4 MG IVP (07:57)
[2021-09-23] MEDS: morphine 4 mg/mL SDV 1 mL IVP (07:58)
--- NOTE | 2021-09-23 08:18 | XRR_ITS ---
PROCEDURE INFORMATION: Exam: XR Chest Exam date and time: 09/23/2021 8:45 AM Age: 75 years old Clinical indication: Injury or trauma; Fall; Blunt trauma (contusions or hematomas) TECHNIQUE: Imaging protocol: Radiologic exam of the chest. Views: 1 view. COMPARISON: CT cervical spin wo con* [id number] 06/06/2020 10:53 AM FINDINGS: Lungs: Unremarkable. No consolidation. Pleural spaces: Unremarkable. No pleural effusion. No pneumothorax. Heart/Mediastinum: Unremarkable. No cardiomegaly. Bones/joints: Unremarkable. XR/XR chest 1V portable [id number] IMPRESSION: No acute findings.
--- NOTE | 2021-09-23 08:27 | ECG_ITS ---
[facility] Test Date: 2021-09-23 Pat Name: Chanda Cedeno Department: Room: Gender: Female Transplant Case Manager: : 1945 Requested By: Estee Villegas Order Number: [id number] [place] MD: Ryan Jimenez M.D. Measurements Intervals [place] Rate: 81 P: 27 LA: 150 QRS: 4 QRSD: 86 T: -2 QT: 383 QTc: 445 Interpretive Statements SINUS RHYTHM MINIMAL ST DEPRESSION [0.025+ mV ST DEPRESSION] Compared to ECG 06/06/2020 09:42:04 ST (T wave) deviation now present Electronically Signed On 09-23-2021 20:31:51 CDT by Ryan Jimenez M.D. [email or web address]
[2021-09-23 08:41] LABS: Basophils # 0.1 10^3/uL (0.0-0.1); Basophils % 0.5 %; Eosinophils # 0.2 10^3/uL (0.0-0.8); Hemoglobin 10.4 g/dL (11.5-15.3); Lymphocytes # 1.5 10^3/uL (0.8-4.8); Lymphocytes % 16.5 %; Mean Corpuscular HGB Conc 31.5 g/dL (30.0-36.0); Mean Corpuscular Hemoglobin 32.2 pg (28.0-34.0); Mean Corpuscular Volume 102.2 fl (81-99); Mean Platelet Volume 11.7 fL (7.4-10.4); Monocytes # 0.6 10^3/uL (0.2-0.9); Monocytes % 6.9 %; Neutrophils # 6.87 10^3/uL (1.8-7.7); Neutrophils % 73.9 %; Nucleated Red Blood Cells % 0 %; Platelet Count 151 10^3/cmm (130-400); Red Blood Count 3.23 10^6/uL (4.1-5.3); Red Cell Distribution Width 12.8 % (12.1-15.1); White Blood Count 9.3 10^3/uL (4.0-10.0)
[2021-09-23 08:54] LABS: INR 1.11 (0.8-1.2)
[2021-09-23 08:57] LABS: Alanine Aminotransferase 7 U/L (0-33); Albumin Level 3.1 g/dL (3.5-5.2); Alkaline Phosphatase 85 IU/L (35-105); Anion Gap 13.3 (5-19); Aspartate Amino Transferase 9 U/L (0-32); Blood Urea Nitrogen 16 mg/dL (8-23); Calcium 7.8 mg/dL (8.5-10.5); Carbon Dioxide 21 mmol/L (22-29); Chloride 112 mmol/L (98-107); Globulin 2.1 g/dL (1.3-4.6); Glucose 134 mg/dL (65-115); Osmolality Calculated 299 mOsm/kg (285-295); Potassium 3.3 mmol/L (3.5-5.1); Sodium 143 mmol/L (136-145); Total Bilirubin 0.2 mg/dL (0.15-1.2); Total Protein 5.2 g/dL (6.6-8.7)
[2021-09-23 09:17] LABS: Thyroid Stimulating Hormone 3.91 uIU/mL (0.27-4.20)
--- NOTE | 2021-09-23 09:31 | PC.NURSE ---
Report called to ESTELLA Vergara
--- NOTE | 2021-09-23 09:44 | P.HP_ITS ---
Providers/Chief Complaint Admitting Physician: Bandar Elkins MD Primary Care Provider: Jennie Birmingham Chief Complaint: RIGHT KNEE PAIN S/P FALL History of Present Illness Chanda Cedeno is a 75 year old female with past medical history of hypertension, dyslipidemia, congestive heart failure with history of multiple episodes of syncopes, morbid obesity, COPD, CKD stage III presented to the ER today after having a mechanical fall while she was trying to get into her wheelchair following which she started having pain in her right hip. In the ER she was found to have distal femur fracture. On examination patient lying comfortably in bed on 2 L oxygen supplementation. She states her pain is a lot better. Denies any new complaints per denies any nausea vomiting, headache, fe aly, chest pain or difficulty breathing more than her usual. Review of Systems General: Reports: 10 or more systems reviewed and unremarkable except in HPI and below Const: Denies: fever(s), chills, body aches, change in appetite, change in weight, malaise, night sweats, diaphoresis, change in sleep pattern, daytime sleepiness or snoring Eyes: Denies: change in vision, blurry vision, photophobia, eye discomfort or eye discharge ENMT: Denies: throat pain, enlarged tonsils, hoarseness, mouth pain, oral sores, dry mouth, tinnitus, nasal congestion or post nasal drip Card: Denies: chest pain, palpitations, irregular heart rhythm, edema, swelling of feet/ankles, lightheadedness, syncope, pre-syncope, dyspnea on exertion, orthopnea, leg pain with exertion or acrocyanosis Resp: Denies: dyspnea, productive cough, non-productive cough, wheezing, stridor, pain on inspiration, change in phlegm color, hemoptysis or chest congestion GI: Denies: abdominal pain, nausea, vomiting, hematemesis, coffee ground emesis, dysphagia, heartburn, diarrhea, constipation, bloating, GI cramping, change in bowel habits, pain on defecation, hematochezia or melena : Denies: flank pain, dysuria, urinary frequency, urinary urgency, urinary hesitancy, nocturia or hematuria Musc: Denies: neck pain, back pain, extremity pain, joint pain, joint swelling, joint redness, joint stiffness or limited range of motion Neuro: Denies: headache(s), numbness in extremities, weakness in extremities, sensory changes, lack of coordination, difficulty walking, frequent falls, dizziness, vertigo, confusion, Slurred speech present, difficulty communicating thoughts or seizure-like activity Psych: Denies: anxiety, depression, mood swings, panic attacks, hopelessness or irritability Endo: Denies: polyuria, polydipsia, tired all the time, cold intolerance, excessive sweating, flushing or heat intolerance Hamlet/Lymph: Denies: easy bruising or easy bleeding All/Imm: Denies: tongue swelling, facial swelling or acute wheezing Medications/Allergies Home Medications Medication Instructions Recorded Confirmed Last Taken Type albuterol sulfate 90 mcg/actuation 2 puff inhalation Q6H PRN 06/11/19 09/23/21 Unknown History aerosol inhaler (Ventolin HFA) Shortness Of Breath aspirin 81 mg tablet,delayed 81 mg PO DAILY 06/11/19 09/23/21 Unknown History release (Adult Low Dose Aspirin) calcium carbonate 500 mg calcium 500 mg PO BID 06/11/19 09/23/21 Unknown History (1,250 mg) tablet dicyclomine 20 mg tablet 20 mg PO QID 06/11/19 09/23/21 Unknown History pantoprazole 40 mg tablet,delayed 40 mg PO DAILY 06/11/19 09/23/21 Unknown History release ropinirole 0.5 mg tablet 0.5 mg PO DAILY 06/11/19 09/23/21 Unknown History simvastatin 40 mg tablet 40 mg PO DAILY 06/11/19 09/23/21 Unknown History tiotropium bromide 18 mcg capsule 1 cap inhalation DAILY 06/11/19 09/23/21 Unknown History with inhalation device (Spiriva with HandiHaler) tizanidine 4 mg capsule 4 mg PO Q8H PRN Muscle Pain 06/11/19 09/23/21 Unknown History topiramate 100 mg tablet (Topamax) 100 mg PO BID 06/11/19 09/23/21 Unknown History tramadol 50 mg tablet 50 mg PO Q8H PRN Pain 06/11/19 09/23/21 Unknown History cholecalciferol (vitamin D3) 50 50 mcg PO DAILY 11/05/19 09/23/21 Unknown History mcg (2,000 unit) capsule buspirone 5 mg tablet 5 mg PO TID 07/19/20 09/23/21 Unknown History dulaglutide 0.75 mg/0.5 mL 0.75 mg SUBCUT Q7D 07/19/20 09/23/21 Unknown History subcutaneous pen injector fluticasone furoate 100 1 inh inhalation DAILY 07/19/20 09/23/21 Unknown History mcg-vilanterol 25 mcg/dose inhalation powder (Breo Ellipta) gabapentin 600 mg tablet 600 mg PO BID 07/19/20 09/23/21 Unknown History hydroxyzine HCl 10 mg tablet 10 mg PO TID PRN Itching 07/19/20 09/23/21 Unknown History bupropion HCl 150 mg 24 hr tablet, 150 mg PO DAILY 09/23/21 09/23/21 Unknown History extended release Allergies Allergy/AdvReac Type Severity Reaction Status Date / Time duloxetine [From Cymbalta] Allergy ADR-Halluci Verified 07/13/21 10:34 nating Penicillins Allergy ALGY-Hives Verified 07/13/21 10:34 PFSH Acute PFSH: Medical History (Updated 09/23/21 @ 11:33 by Bandar Elkins MD) 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 Conversion disorder with seizures or convulsions COPD (chronic obstructive pulmonary disease) Diabetes Dizziness and giddiness Essential tremor Fibromyalgia Functional neurological symptom disorder with attacks or seizures Heart failure Hyperlipidemia Hypertension Surgical History History of appendectomy History of History of cholecystectomy History of hip replacement History of hysterectomy History of knee replacement Family History Mother CAD (coronary artery disease) Diabetes Social History Smoking and tobacco status: current every day smoker Alcohol intake: current Alcohol intake frequency: other History of recent travel: No Vitals/I&O/Wt Last Vital Signs Temp 98.9 F 09/23/21 07:50 Pulse 84 09/23/21 09:33 Resp 18 09/23/21 09:33 BP 158/89 09/23/21 09:33 Pulse Ox 99 09/23/21 09:33 O2 Del Method 09/23/21 09:33 O2 Flow Rate 2 09/23/21 09:33 Weight last 48 hrs Weight 97.522 kg Physical Exam Narrative: EXAM NARRATIVE: General: No acute distress, AO x3, NC oxygen supplementation HEENT: PERRLA, pupils bilaterally equal and reactive Chest: Bronchial breath sounds b/l , occasional rhonchi all over the lung marie equal good air entry bilaterally, CVS: S1-S2 regular, no murmurs, no tachycardia, no gallops, no rubs Abdomen: Soft, nontender, no organomegaly, bowel sounds present, morbidly obese Neuro: No focal deficits, no facial deformity, AO x3, power 5/5 in all limbs Data : 09/23/21 08:30 09/23/21 08:30 Micro: Microbiology 09/23/21 09:02 Blood Culture - Preliminary Blood SPECIMEN COLLECTED 09/23/21 09:02 Blood Culture - Preliminary Blood SPECIMEN COLLECTED A&P Assessment and plan (1) Femoral distal fracture: Post mechanical fall. Orthopedics has been consulted from the ER. Plan for ORIF in a.m. Pain medication, physical therapy postoperatively as per orthopedic team. Status: Acute Qualifiers: Encounter type: initial encounter Fracture morphology: unspecified fracture morphology Fracture type: closed Laterality: right Qualified Code(s): S72.401A - Unspecified fracture of lower end of right femur, initial encounter for closed fracture (2) Heart failure: History of congestive heart failure. Compensated currently. Echocardiogram. Continue to monitor. Status: Acute (3) Acute kidney injury: Baseline creatinine 1. Currently 1.2. Most likely secondary to slight dehydration. Medical reconciliation done for nephrotoxic drugs. Normal saline at 75 cc/h for 1 bag. Monitor for fluid overload. Status: Acute (4) Anemia: Check iron panel, vitamin B12, folate level. Start on oral iron supplementation. Monitor hemoglobin postoperatively. Status: Acute (5) Fall: Status: Acute Plan Continue other chronic home medications including BuSpar, bupropion, aspirin, gabapentin. Analgesia: Gabapentin at home dose, Tylenol every 6 hourly as needed, morphine 1 mg every 4 hourly. Glycemic control: Insulin sliding scale moderate dose. Check A1c. Nutrition: Cardiac carb consistent diet. N.p.o. after midnight. CODE STATUS: Full code. PUD prophylaxis: Protonix DVT prophylaxis: SCDs Discharge planning: Plan to discharge to SNF postoperatively once medically cleared Ad[facility] with telemetry This documentation was created by [employer] environmental permitting specialist software. Every effort was made to ensure accuracy of environmental permitting specialist. Any obvious errors or omissions should be clarified with the author of the document. Attestations Medical Necessity Statement*: [place] for more than 2 midnights for management of distal femur fracture Time Spent in Patient Care: Greater than 35 minutes Coding Level of Care Code Acute Cardiovascular Disease Specialist for [facility] Diagnoses Femoral distal fracture S72.401A Encounter type: initial encounter Fracture morphology: unspecified fracture morphology Fracture type: closed Laterality: right Heart failure I50.9 Acute kidney injury N17.9 Anemia D64.9 Fall W19.XXXA
--- NOTE | 2021-09-23 10:14 | PM.CONSULT ---
Providers/Reason For Consult Consulting Physician/Specialty*: hospitalist Reason for Consult*: distal femur fracture Attending Physician: Bandar Elkins MD Primary Care Provider: Jennie Birmingham History of Present Illness History of Present Illness Chanda Cedeno is a 75 year old female fell and twited her leg. she had imediate pain in the knee and has a distal femur fracture Review of Systems General: Reports: 10 or more systems reviewed and unremarkable except in HPI and below Const: Denies: fever(s), chills, body aches, change in appetite, change in weight, malaise, night sweats, diaphoresis, change in sleep pattern, daytime sleepiness or snoring Eyes: Denies: change in vision, blurry vision, photophobia, eye discomfort or eye discharge ENMT: Denies: throat pain, enlarged tonsils, hoarseness, mouth pain, oral sores, dry mouth, tinnitus, nasal congestion or post nasal drip Card: Denies: chest pain, palpitations, irregular heart rhythm, edema, swelling of feet/ankles, lightheadedness, syncope, pre-syncope, dyspnea on exertion, orthopnea, leg pain with exertion or acrocyanosis Resp: Denies: dyspnea, productive cough, non-productive cough, wheezing, stridor, pain on inspiration, change in phlegm color, hemoptysis or chest congestion GI: Denies: abdominal pain, nausea, vomiting, hematemesis, coffee ground emesis, dysphagia, heartburn, diarrhea, constipation, bloating, GI cramping, change in bowel habits, pain on defecation, hematochezia or melena : Denies: flank pain, dysuria, urinary frequency, urinary urgency, urinary hesitancy, nocturia or hematuria Musc: Denies: neck pain, back pain, extremity pain, joint pain, joint swelling, joint redness, joint stiffness or limited range of motion Neuro: Denies: headache(s), numbness in extremities, weakness in extremities, sensory changes, lack of coordination, difficulty walking, frequent falls, dizziness, vertigo, confusion, Slurred speech present, difficulty communicating thoughts or seizure-like activity Psych: Denies: anxiety, depression, mood swings, panic attacks, hopelessness or irritability Endo: Denies: polyuria, polydipsia, tired all the time, cold intolerance, excessive sweating, flushing or heat intolerance Hamlet/Lymph: Denies: easy bruising or easy bleeding All/Imm: Denies: tongue swelling, facial swelling or acute wheezing Medications/Allergies Home Medications Medication Instructions Recorded Confirmed Last Taken Type albuterol sulfate 90 mcg/actuation 2 puff inhalation Q6H PRN 06/11/19 09/23/21 Unknown History aerosol inhaler (Ventolin HFA) Shortness Of Breath ascorbic acid (vitamin C) 500 mg 500 mg PO DAILY 06/11/19 09/23/21 Unknown History capsule,extended release aspirin 81 mg tablet,delayed 81 mg PO DAILY 06/11/19 09/23/21 Unknown History release (Adult Low Dose Aspirin) calcium carbonate 500 mg calcium 500 mg PO BID 06/11/19 09/23/21 Unknown History (1,250 mg) tablet dicyclomine 20 mg tablet 20 mg PO QID 06/11/19 09/23/21 Unknown History loratadine 10 mg tablet (Allergy 10 mg PO DAILY 06/11/19 09/23/21 Unknown History Relief (loratadine)) pantoprazole 40 mg tablet,delayed 40 mg PO DAILY 06/11/19 09/23/21 Unknown History release ropinirole 0.5 mg tablet 0.5 mg PO DAILY 06/11/19 09/23/21 Unknown History simvastatin 40 mg tablet 40 mg PO DAILY 06/11/19 09/23/21 Unknown History tiotropium bromide 18 mcg capsule 1 cap inhalation DAILY 06/11/19 09/23/21 Unknown History with inhalation device (Spiriva with HandiHaler) tizanidine 4 mg capsule 4 mg PO Q8H PRN Muscle Pain 06/11/19 09/23/21 Unknown History topiramate 100 mg tablet (Topamax) 100 mg PO BID 06/11/19 09/23/21 Unknown History tramadol 50 mg tablet 50 mg PO Q8H PRN Pain 06/11/19 09/23/21 Unknown History cholecalciferol (vitamin D3) 50 50 mcg PO DAILY 11/05/19 09/23/21 Unknown History mcg (2,000 unit) capsule bupropion HCl 75 mg tablet 75 mg PO DAILY 07/19/20 09/23/21 Unknown History buspirone 5 mg tablet 5 mg PO TID 07/19/20 09/23/21 Unknown History dulaglutide 0.75 mg/0.5 mL 0.75 mg SUBCUT Q7D 07/19/20 09/23/21 Unknown History subcutaneous pen injector fluticasone furoate 100 1 inh inhalation DAILY 07/19/20 09/23/21 Unknown History mcg-vilanterol 25 mcg/dose inhalation powder (Breo Ellipta) gabapentin 600 mg tablet 600 mg PO TID 07/19/20 09/23/21 Unknown History hydroxyzine HCl 10 mg tablet 10 mg PO TID PRN Anxiety 07/19/20 09/23/21 Unknown History Allergies Allergy/AdvReac Type Severity Reaction Status Date / Time duloxetine [From Cymbalta] Allergy ADR-Halluci Verified 07/13/21 10:34 nating Penicillins Allergy ALGY-Hives Verified 07/13/21 10:34 PFSH Acute PFSH: Medical History COPD (chronic obstructive pulmonary disease) Diabetes Hyperlipidemia Hypertension Surgical History History of appendectomy History of History of cholecystectomy History of hip replacement History of hysterectomy History of knee replacement Family History Mother CAD (coronary artery disease) Diabetes Social History Smoking and tobacco status: current every day smoker Alcohol intake: current Alcohol intake frequency: other History of recent travel: No Vitals/I&O/Wt Last Vital Signs Temp 98.9 F 09/23/21 07:50 Pulse 84 09/23/21 09:33 Resp 18 09/23/21 09:33 BP 158/89 09/23/21 09:33 Pulse Ox 99 09/23/21 09:33 O2 Del Method 09/23/21 09:33 O2 Flow Rate 2 09/23/21 09:33 Weight last 48 hrs Weight 215 lb Physical Exam Narrative: CONSTITUTIONAL: The patient is a normal appearing [] in no apparent distress. GENERAL: Patient in no acute distress. CARDIAC: Regular rate and rhythm. CHEST: Normal inspiratory effort, normal respiratory rate. ABDOMEN: Soft and nontender. SKIN: Clear, warm and intact. NEURO?PSYCH: The patient is alert and oriented to person, place and time. Sensorv /SILT Motor StrengthShoulder abduction C5 5/5Wrist extension C6 5/5Elbow extension C7 5/5Hand Drag Sawyer C8 5/5Finger abduction T15/5 Radial/ Ulnar/ Median n intact LowerSensory (SILT)Motor StrengthHin flexion L2/3Ant/inner thigh 5/5Hip adduction L2/3 5/5Knee extension L4 Lat thigh, 5/5Toe dorsiflexion L5 5/5Ankle dorsiflexion L5/ [id number] flexion S1 5/5 DTRBleeps 2+Triceps 2+Brachioradialis 2+Patellar 2+Achilles 2+ MUSCULOSKELETAL: [] UPPEREXTREMITIES: The patient had full active ROM in fingers, wrist, elbow, and shoulder. The patient demonstrated ability to fully flex/extend/abduct/adduct fingers, make ok sign, cross 2nd/3rd digits, extend 1st digit fully.. Radial pulse 2+, CR<2 seconds. LOWER EXTREMITIES: Pt has full, active ROM of toes, ankle, knee, and hip. Dorsalis pedis/posterior tibialis pulses 2+, CR<2 seconds. SPINE: Skin warm, dry, intact. Data : 09/23/21 08:30 09/23/21 08:30 Micro: Microbiology 09/23/21 09:02 Blood Culture - Preliminary Blood SPECIMEN COLLECTED 09/23/21 09:02 Blood Culture - Preliminary Blood SPECIMEN COLLECTED A&P Assessment and plan (1) Femoral distal fracture: ORIF distal femur in am Status: Acute Qualifiers: Encounter type: initial encounter Fracture morphology: unspecified fracture morphology Fracture type: closed Laterality: right Qualified Code(s): S72.401A - Unspecified fracture of lower end of right femur, initial encounter for closed fracture Coding Level of Care Code Acute Construction Equipment Mechanic for [facility] Diagnoses Femoral distal fracture S72.401A Encounter type: initial encounter Fracture morphology: unspecified fracture morphology Fracture type: closed Laterality: right
[2021-09-23 10:20] LABS: Iron 51 ug/dL (37-145); Percent Saturation 22.1 % (20-50); Total Iron Binding Capacity 230 mcg/dl; Unsaturated Iron Binding 179 ug/dL (112-347)
[2021-09-23] MEDS: morphine 4 mg/mL SDV 1 mL 2 MG IVP ×2 (10:23→18:00)
[2021-09-23 10:35] LABS: Procalcitonin 0.07 ng/mL (0-0.5); Vitamin B12 231 pg/mL (232-1245)
[2021-09-23 10:38] LABS: Folate Level 7.7 ng/mL (4.8-37.3)
--- NOTE | 2021-09-23 11:01 | PC.NURSE ---
covid boosters 1st booster pfizer 12/27/20 and 2nd booster pfizer 06/20/21.
[2021-09-23 11:06] LABS: Potassium, Radom Urine 44 mmol/L; Urine Random Chloride 132 mmol/L; Urine Random Sodium 124 mmol/L
[2021-09-23] MEDS: budesonide 0.5 mg/2 mL Neb INHALATION ×2 (11:21→20:31)
[2021-09-23 11:22] LABS: Glucose Point of Care 134 mg/dL (70-110)
[2021-09-23 11:24] LABS: Bilirubin Urine Neg (Negative); Blood Urine 2+ (Negative); Glucose Urine UA Norm (Normal); Ketones Urine Negative (Negative); Nitrate Urine Negative (Negative); Protein Urine Neg (Negative); Urine Appearance Cloudy (CLEAR); Urine Color Yellow (Yellow); Urobilinogen Urine Norm (Negative); pH Urine 5 (5-7)
[2021-09-23 11:25] LABS: Add Urine Microscopic? YES; Leukocyte Esterase Urine 1+ (Negative)
--- NOTE | 2021-09-23 11:28 | USCV_ITS ---
TedxiChanda Age: 75 Gender: F : 1945 Exam Date: 09/23/2021 15:08 Ordering Phys: Bandar Elkins MD Technologist: Shaji Melara Exam Location: [facility] Indication: chf BP: 141 / 67 HR: 93 Rhythm: Sinus Technical Quality: Technically difficult study MEASUREMENTS (Male / Female) Normal Values 2D ECHO LV Diastolic Diameter PLAX 3.0 cm 4.2 - 5.9 / 3.9 - 5.3 cm LV Systolic Diameter PLAX 2.2 cm IVS Diastolic Thickness 1.3 cm 0.6 - 1.0 / 0.6 - 0.9 cm IVS Systolic Thickness 1.7 cm LVPW Diastolic Thickness 1.3 cm 0.6 - 1.0 / 0.6 - 0.9 cm LVPW Systolic Thickness 1.3 cm LVOT Diameter 2.0 cm LV Ejection Fraction 2D Teich 55.9 % LA Diameter 3.0 cm LA Width 3.2 cm LA Height 4.9 cm RA Width 4.0 cm RA Height 4.7 cm Aorta at Sinotubular Diameter 2.4 cm IVC Diameter 1.6 cm M-MODE Aortic Annulus Diameter 2.9 cm LA Ao Ratio MM 1.1 MV E Point Septal Separation 0.7 cm DOPPLER AV Peak Velocity 144.0 cm/s LVOT Peak Velocity 91.0 cm/s AV Area Cont Eq vti 2.4 cm squared AV Area Cont Eq pk 2.0 cm squared MV Peak Velocity 82.0 cm/s MV Area PHT 3.9 cm squared Mitral E to A Ratio 0.7 MV E' Velocity 27.0 cm/s Mitral E to MV E' Ratio 7.1 Mitral E to LV E' Lateral Ratio 7.8 Mitral E to LV E' Septal Ratio 6.6 TR Peak Velocity 173.3 cm/s TR Peak Gradient 12.0 mmHg TR Mean Velocity 144.5 cm/s TR Mean Gradient 8.3 mmHg TR Velocity Time Integral 38.5 cm Right Atrial Pressure 3.0 mmHg Pulmonary Artery Systolic Pressu 15.0 mmHg RV Acceleration Time 0.1 s RV Ejection Time 0.2 s RV AcT/ET 0.3 FINDINGS Left Ventricle Technically very limited quality echocardiogram beause of poor ultrasonic windows. LV systolic function is grossly normal. Grade 1 diastolic dysfunction Right Ventricle Not well visualized Right Atrium Not well-visualized Left Atrium Grossly normal in size Mitral Valve Not well-visualized. Trace mitral regurgitation. Aortic Valve Not visualized Tricuspid Valve Trace tricuspid regurgitation. Insufficient TR jet to calculate RVSP. Pulmonic Valve Not visualized Pericardium Not well-visualized Aorta Not well-visualized IVC CONCLUSIONS Technically very limited quality echocardiogram because of poor ultrasonic windows. LV systolic function is grossly normal. Grade 1 diastolic dysfunction. Valvular structures not well visualized. Trace mitral regurgitation and trace tricuspid regurgitation are seen. No comparison studies are available Ryan Jimenez MD (Electronically Signed) Final Date: 23 September 2021 20:52 S
[2021-09-23 11:30] LABS: Bacteria Urine 4+ /hpf; Squamous Epithelial Cell Urine RARE /hpf (0-5); WBC Urine 25-40 /hpf (0-5)
[2021-09-23 11:31] LABS: Add Urine Culture? Yes
[2021-09-23] MEDS: ropinirole 1 mg Tablet PO (11:44)
[2021-09-23] MEDS: aspirin 81 mg EC Tablet PO (11:45)
[2021-09-23] MEDS: atorvastatin 40 mg Tablet 20 MG PO (11:45)
[2021-09-23] MEDS: gabapentin 300 mg Capsule 600 MG PO ×3 (11:45→21:16)
[2021-09-23] MEDS: pantoprazole DR 40 mg Tablet PO (11:45)
[2021-09-23] MEDS: BuSPIRONE 10 mg Tablet 5 MG PO ×3 (11:46→21:15)
[2021-09-23] MEDS: topiramate 100 mg Tablet PO ×2 (11:49→17:21)
[2021-09-23] MEDS: cefTRIAXone 1,000 MG in sodium chloride 0.9% (plus) 50 ML 100 MG IV (11:49)
[2021-09-23] MEDS: sodium chloride 0.9% 1,000 ML 75 ML IV (11:50)
[2021-09-23] MEDS: TRAMadol 50 mg Tablet PO ×2 (11:53→17:20)
[2021-09-23] MEDS: tizanidine 4 mg Tablet PO (12:02)
[2021-09-23] MEDS: ipratropium-albuterol 3 mL Neb INHALATION ×2 (13:57→20:31)
[2021-09-23] MEDS: acetaminophen 325 mg Tablet 650 MG PO (14:13)
[2021-09-23 16:49] LABS: Glucose Point of Care 142 mg/dL (70-110)
[2021-09-23] MEDS: calcium carbonate 500 mg Chew Tablet PO (17:20)
[2021-09-23] MEDS: docusate sodium 100 mg Capsule PO (17:20)
[2021-09-23] MEDS: ferrous gluconate 324 mg Tablet PO (17:21)
[2021-09-23] MEDS: insulin lispro 100 unit/1 mL SUBCUT (17:21)
[2021-09-23 20:09] LABS: Glucose Point of Care 108 mg/dL (70-110)
[2021-09-24] VITALS (21 sets, daily range): BP systolic 112–170; BP diastolic 63–99; PULSE 63–118; RESP 16–18; TEMP 36.4–37.1; O2SAT 93–100
--- NOTE | 2021-09-24 | XR_ITS ---
WS: [id number] INTRAOPERATIVE TECHNIQUE: 11 Spot fluoroscopic images for intraoperative purposes. FLUOROSCOPY TIME: 159.4 seconds CLINICAL INFORMATION: [facility] COMPARISON: None. FINDINGS: Lateral plate and screw fixation RIGHT femoral shaft. XR/XR femur RT min 2V* [id number] IMPRESSION: Images obtained for intraoperative purposes.
--- NOTE | 2021-09-24 | SCC_ITS ---
Procedure done: 1. ORIF distal periprosthetic femur fracture 159.4 seconds of fluoroscopic guidance, for a cumulative dose of 23.11 mGy, was provided to Dr. Ortega by the radiology department. C-arm images of the RIGHT femur were saved for the patient's permanent record. [facility]
[2021-09-24] MEDS: morphine 4 mg/mL SDV 1 mL 2 MG IVP (01:58)
[2021-09-24] MEDS: ipratropium-albuterol 3 mL Neb INHALATION ×2 (02:24→13:33)
--- NOTE | 2021-09-24 03:05 | PC.NURSE ---
pt c/o severe pain to right leg, PRN morphine given, pain level 10 at the time, after 30 minutes pain level is 9, after another 30 minutes pain back to 10 due to pt. moving right leg reported by pt herself, call placed to Dr. Cuevas, morphine dc's and dilaudid 1 mg Q4H Prn in its place and may give first dose now.
[2021-09-24] MEDS: HYDROmorphone 1 mg/mL INJ 1 mL IVP (03:26)
[2021-09-24 05:49] LABS: Basophils % 0.4 %; Eosinophils # 0.2 10^3/uL (0.0-0.8); Eosinophils % 1.9 %; Hematocrit 32.8 % (37.0-47.0); Hemoglobin 10.5 g/dL (11.5-15.3); Lymphocytes # 2.6 10^3/uL (0.8-4.8); Mean Platelet Volume 12.1 fL (7.4-10.4); Monocytes # 1.3 10^3/uL (0.2-0.9); Monocytes % 13.1 %; Neutrophils # 5.72 10^3/uL (1.8-7.7); Neutrophils % 58.2 %; Nucleated Red Blood Cells % 0 %; Platelet Count 147 10^3/cmm (130-400); Red Blood Count 3.28 10^6/uL (4.1-5.3); Red Cell Distribution Width 12.9 % (12.1-15.1); White Blood Count 9.8 10^3/uL (4.0-10.0)
[2021-09-24 06:10] LABS: Alanine Aminotransferase 8 U/L (0-33); Albumin Level 3.4 g/dL (3.5-5.2); Alkaline Phosphatase 83 IU/L (35-105); Anion Gap 13.9 (5-19); Aspartate Amino Transferase 16 U/L (0-32); Blood Urea Nitrogen 18 mg/dL (8-23); Calcium 8.6 mg/dL (8.5-10.5); Carbon Dioxide 25 mmol/L (22-29); Chloride 102 mmol/L (98-107); Chol HDL Ratio 2.45 mg/dL (0.0-4.40); Cholesterol 120 mg/dL (0-200); Globulin 2.7 g/dL (1.3-4.6); Glucose 117 mg/dL (65-115); HDL Cholesterol 49 mg/dL (60-100); LDL Cholesterol Calculated 58 mg/dL (50-129); Magnesium 1.9 mg/dL (1.7-2.3); Osmolality Calculated 287 mOsm/kg (285-295); Phosphorus 4.6 mg/dL (2.5-4.5); Potassium 3.9 mmol/L (3.5-5.1); Sodium 137 mmol/L (136-145); Total Bilirubin 0.4 mg/dL (0.15-1.2); Total Protein 6.1 g/dL (6.6-8.7); Triglycerides 63 mg/dL (0-150); VLDL Cholestrol Calculation 13 mg/dL (0-30)
[2021-09-24 06:27] LABS: Estmated Average Glucose 94; Hemoglobin A1C 4.9 % (4.0-6.0)
[2021-09-24 06:47] LABS: Glucose Point of Care 119 mg/dL (70-110)
--- NOTE | 2021-09-24 07:33 | PC.NURSE ---
notified of 1/4 bottles of blood cultures positive for gram positive cocci. No new orders given at this time.
--- NOTE | 2021-09-24 07:49 | W.PM.OPSUD ---
Surgery/Procedure H&P Update DATE OF PROCEDURE: September 24, 2021 DATE H&P PERFORMED: 09/23/21 H&P UPDATE INFORMATION: I have reviewed H&P completed within last 30 days, I have examined patient prior to procedure and No changes to prior documentation PREOP DIAGNOSIS: Right periprosthetic distal femur fracture PLANNED PROCEDURE: Operation Date: 09/24/21 08:00 Proposed Procedures p ORIF Femur(Right) - Adam Ortega DO
--- NOTE | 2021-09-24 07:59 | P.ANESASSM_ITS ---
Pre-Anesthetic Assessment Height/Weight: Height 1.68 m Weight 104.734 kg Temp Pulse Resp BP Pulse Ox O2 Del Method O2 Flow Rate 98.1 F 93 18 117/86 94 2 09/24/21 07:39 09/24/21 07:39 09/24/21 07:39 09/24/21 07:39 09/24/21 07:39 09/24/21 07:39 09/24/21 02:26 Preop Diagnosis: Right periprosthetic distal femur fracture Operation Date: 09/24/21 08:00 Proposed Procedures p ORIF Femur(Right) - Adam Ortega, DO Familial anesthetic complications: None Last intake: > 8hrs Social No alcohol and No tobacco Exam alert, oriented x 3, clear to auscultation bilaterally and regular rate & rhythm Airway Mallampati: Class III Dentition: other (no teeth) Pulmonary hx copd, denies O2 use CV/HEM Congestive Heart Failure (grade I diastolic dysfunction) Chronic Renal Insufficiency MARGOTH Metabolic Diabetes Mellitus, Hyperlipidemia and Morbid Obesity Neuropsych Seizure Anesthetic Plan ASA status: 3 Anesthesia: General Risk of > 500 ml blood loss (7ml/kg in children): No Medications/Allergies Home Medications Medication Instructions Recorded Confirmed Last Taken Type albuterol sulfate 90 mcg/actuation 2 puff inhalation Q6H PRN 06/11/19 09/23/21 Unknown History aerosol inhaler (Ventolin HFA) Shortness Of Breath aspirin 81 mg tablet,delayed 81 mg PO DAILY 06/11/19 09/23/21 Unknown History release (Adult Low Dose Aspirin) calcium carbonate 500 mg calcium 500 mg PO BID 06/11/19 09/23/21 Unknown History (1,250 mg) tablet dicyclomine 20 mg tablet 20 mg PO QID 06/11/19 09/23/21 Unknown History pantoprazole 40 mg tablet,delayed 40 mg PO DAILY 06/11/19 09/23/21 Unknown History release ropinirole 0.5 mg tablet 0.5 mg PO DAILY 06/11/19 09/23/21 Unknown History simvastatin 40 mg tablet 40 mg PO DAILY 06/11/19 09/23/21 Unknown History tiotropium bromide 18 mcg capsule 1 cap inhalation DAILY 06/11/19 09/23/21 Unknown History with inhalation device (Spiriva with HandiHaler) tizanidine 4 mg capsule 4 mg PO Q8H PRN Muscle Pain 06/11/19 09/23/21 Unknown History topiramate 100 mg tablet (Topamax) 100 mg PO BID 06/11/19 09/23/21 Unknown History tramadol 50 mg tablet 50 mg PO Q8H PRN Pain 06/11/19 09/23/21 Unknown History cholecalciferol (vitamin D3) 50 50 mcg PO DAILY 11/05/19 09/23/21 Unknown History mcg (2,000 unit) capsule buspirone 5 mg tablet 5 mg PO TID 07/19/20 09/23/21 Unknown History dulaglutide 0.75 mg/0.5 mL 0.75 mg SUBCUT Q7D 07/19/20 09/23/21 Unknown History subcutaneous pen injector fluticasone furoate 100 1 inh inhalation DAILY 07/19/20 09/23/21 Unknown History mcg-vilanterol 25 mcg/dose inhalation powder (Breo Ellipta) gabapentin 600 mg tablet 600 mg PO BID 07/19/20 09/23/21 Unknown History hydroxyzine HCl 10 mg tablet 10 mg PO TID PRN Itching 07/19/20 09/23/21 Unknown History bupropion HCl 150 mg 24 hr tablet, 150 mg PO DAILY 09/23/21 09/23/21 Unknown History extended release Allergies Allergy/AdvReac Type Severity Reaction Status Date / Time duloxetine [From Cymbalta] Allergy ADR-Halluci Verified 07/13/21 10:34 nating Penicillins Allergy ALGY-Hives Verified 07/13/21 10:34 Current Medications Generic Name Dose Route Start Last Admin Trade Name Mari PRN Reason Stop Dose Admin Acetaminophen 650 mg 09/23/21 10:10 09/23/21 14:13 Acetaminophen 325 Mg Tablet PO 650 mg Q6H PRN Administration Mild/Mod Pain Or Temp >/= 101 Albuterol/Ipratropium 3 ml 09/23/21 14:00 09/24/21 02:24 Ipratropium-Albuterol 3 Ml Neb INHALATION 3 ml Q6H.RESP MAMADOU Administration Aspirin 81 mg 09/23/21 10:10 09/23/21 11:45 Aspirin 81 Mg Ec Tablet PO 81 mg DAILY MAMADOU Administration Atorvastatin Calcium 20 mg 09/23/21 10:10 09/23/21 11:45 Atorvastatin 40 Mg Tablet PO 20 mg DAILY MAMADOU Administration Budesonide 0.5 mg 09/23/21 10:10 09/23/21 20:31 Budesonide 0.5 Mg/2 Ml Neb INHALATION 0.5 mg BID.RESPIRATORY MAMADOU Administration Buspirone HCl 5 mg 09/23/21 10:10 09/23/21 21:15 Buspirone 10 Mg Tablet PO 5 mg TID MAMADOU Administration Calcium Carbonate 500 mg 09/23/21 18:00 09/23/21 17:20 Calcium Carbonate 500 Mg Chew Tablet PO 500 mg BID MAMADOU Administration Docusate Sodium 100 mg 09/23/21 18:00 09/23/21 17:20 Docusate Sodium 100 Mg Capsule PO 100 mg BID MAMADOU Administration Ferrous Gluconate 324 mg 09/23/21 18:00 09/23/21 17:21 Ferrous Gluconate 324 Mg Tablet PO 324 mg BIDWM MAMADOU Administration Gabapentin 600 mg 09/23/21 10:10 09/23/21 21:16 Gabapentin 300 Mg Capsule PO 600 mg TID MAMADOU Administration Hydromorphone HCl 1 mg 09/24/21 03:03 09/24/21 03:26 Hydromorphone 1 Mg/Ml Inj 1 Ml IVP 1 mg Q4H PRN Administration PAIN Ceftriaxone Sodium 1,000 mg/ 50 mls @ 100 mls/hr 09/23/21 11:30 09/23/21 13:25 Sodium Chloride IV Infused Q24H [facility] Infusion Protocol Insulin Human Lispro 0 unit 09/23/21 12:00 09/24/21 07:25 Insulin Lispro 100 Unit/1 Ml SUBCUT Not Given WM&BEDTIME [facility] Protocol Non-Formulary Medication 75 mg 09/23/21 10:10 09/23/21 11:53 Bupropion Hcl PO Not Given DAILY [facility] Pantoprazole Sodium 40 mg 09/23/21 10:10 09/23/21 11:[address] 40 Mg Tablet PO 40 mg DAILY MAMADOU Administration Ropinirole HCl 1 mg 09/23/21 10:10 09/23/21 11:44 Ropinirole 1 Mg Tablet PO 1 mg DAILY MAMADOU Administration Tizanidine HCl 4 mg 09/23/21 10:10 09/23/21 12:02 Tizanidine 4 Mg Tablet PO 4 mg Q8H PRN Administration RESTLESS LEG SYNDROME Topiramate 100 mg 09/23/21 10:10 09/23/21 17:21 Topiramate 100 Mg Tablet PO 100 mg BID MAMADOU Administration Tramadol HCl 50 mg 09/23/21 10:10 09/23/21 17:20 Tramadol 50 Mg Tablet PO 50 mg Q8H PRN Administration PAIN PFSH Anesthesia Medical History (Updated 09/23/21 @ 11:33 by Bandar Elkins MD) 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 Conversion disorder with seizures or convulsions COPD (chronic obstructive pulmonary disease) Diabetes Dizziness and giddiness Essential tremor Fibromyalgia Functional neurological symptom disorder with attacks or seizures Heart failure Hyperlipidemia Hypertension Surgical History History of appendectomy History of History of cholecystectomy History of hip replacement History of hysterectomy History of knee replacement Family History Mother CAD (coronary artery disease) Diabetes Social History Smoking and tobacco status: current every day smoker Alcohol intake: current Alcohol intake frequency: other History of recent travel: No Data Anesthesia : 09/24/21 05:15 09/24/21 05:15 Short CBC 09/23/21 09/24/21 Range/Units 08:30 05:15 WBC 9.3 9.8 (4.0-10.0) 10^3/uL Hgb 10.4 L 10.5 L (11.5-15.3) g/dL Hct 33.0 L 32.8 L (37.0-47.0) % MCV 102.2 H 100.0 H (81-99) fl Plt Count 151 147 (130-400) 10^3/cmm Neut % (Auto) 73.9 58.2 % Neut # (Auto) 6.87 5.72 (1.8-7.7) 10^3/uL BMP 09/23/21 09/24/21 08:30 05:15 Sodium 143 137 Potassium 3.3 L 3.9 Chloride 112 H 102 Carbon Dioxide 21 L 25 BUN 16 18 Creatinine 1.2 H 1.3 H Glucose 134 H 117 H Calcium 7.8 L 8.6 Liver Function 09/23/21 09/24/21 Range/Units 08:30 05:15 Total Bilirubin 0.2 0.4 (0.15-1.2) mg/dL AST 9 16 (0-32) U/L ALT 7 8 (0-33) U/L Alkaline Phosphatase 85 83 (35-105) IU/L Albumin 3.1 L 3.4 L (3.5-5.2) g/dL Urine 09/23/21 Range/Units 10:28 Urine Color Yellow (Yellow) Urine Appearance Cloudy (CLEAR) Urine pH 5 (5-7) Ur Specific [place] 1.020 (1.005-1.030) Urine Protein Neg (Negative) Urine Glucose (UA) Norm (Normal) Urine Ketones Negative (Negative) Urine Nitrate Negative (Negative) Urine Bilirubin Neg (Negative) Ur Leukocyte Esterase 1+ H (Negative) Urine RBC None (0-2) /hpf Urine WBC 25-40 H (0-5) /hpf Coags 09/23/21 08:30 PT 14.60 INR 1.11 Microbiology 09/23/21 09:02 Blood Culture - Preliminary Blood 09/23/21 10:28 Bacterial Antigens - Final Urine Kidney 09/23/21 10:28 Legionella Urinary Antigen - Final Urine Catheterized 09/23/21 09:02 Blood Culture - Preliminary Blood SPECIMEN COLLECTED Cardiac Studies: Echocardiogram 09/23/21
[2021-09-24] MEDS: clindamycin 900 MG/50 ML PREMIX 100 MG IV ×2 (08:00→15:45)
[2021-09-24] MEDS: vancomycin 1,000 MG in sodium chloride 0.9% 250 ML 250 MG IV (08:50)
[2021-09-24] MEDS: vancomycin 1,000 MG SDV 1000 MG XX (09:51)
--- NOTE | 2021-09-24 10:30 | P.OP_ITS ---
Operative Report Date of procedure: September 24, 2021 Pre-op diagnosis: Preop Diagnosis Right periprosthetic distal femur fracture Post-op diagnosis: same Procedure done: 1. ORIF distal periprosthetic femur fracture Surgeon: Adam Ortega Bilingual Counter Sales Retail: Tripp Mendez Bilingual Counter Sales Retail: The real estate legal assistant, Tripp Mendez, PAC was needed for his expertise with fracture care. He was important and necessary throughout the procedure to complete in a safe and timely manner. He assisted with patient positioning prepping and draping tissue retraction suctioning of the operative field protection of the critical structures and tissue closure Estimated blood loss (mL): 250 Procedure: 1. ORIF distal periprosthetic femur fracture Patient was brought to the operative suite after undergoing anesthesia was placed in the supine position. All areas impingement well-padded. Patient was then prepped and draped normal sterile fashion. The leg was then placed upon triangle. Skin skin is made laterally IT band was split vastus lateralis was elevated anteriorly fracture was identified reduced with bone reduction forceps a cable was passed around to hold the sagittal plane reduction and then 2 lag screws were placed from lateral to medial to hold the fracture reduced. Extension was brought to placing the plate. A Brooke distal femur plate was placed 4 screws were placed into the distal end of the plate. And then 4 screws were placed proximally. To the screws were unicortical screws because of hitting the femoral prosthesis for the hip. But the hip was spanned by the plate. In order to facilitate not getting any stress risers. AP lateral fluoroscopy ensured the fracture and hardware were reduced adequately. And wounds were irrigated and closed with Vicryl and ann. Sterile dressings were applied and patient was transferred to the PACU in stable condition.
--- NOTE | 2021-09-24 10:31 | XRR_ITS ---
PROCEDURE INFORMATION: Exam: XR Right Femur Exam date and time: 09/24/2021 10:45 AM Age: 75 years old Clinical indication: Pain; Thigh; Right; Prior surgery; Surgery date: Post-operative (0-2 days); Surgery type: FX; Additional info: Post op, include hip and knee TECHNIQUE: Imaging protocol: Radiologic exam of the Right femur. Views: 2 views. COMPARISON: CR (LOW EXM, ) 09/23/2021 8:02 AM FINDINGS: Bones/joints: Oblique fracture is seen in the distal shaft of the right femur status post ORIF with lateral metallic plate and multiple screws in place. The bones show anatomic alignment. Metallic knee replacement is again documented in good position. Proximal right femur displays a metallic arthroplasty in good position. Soft tissues: Metallic skin closure ann are seen in the lateral aspect of the right leg XR/XR femur RT 1V [id number] IMPRESSION: 1. Oblique displaced fracture distal shaft of the right femur status post ORIF 2. Metallic right hip arthroplasty in good position 3. Metallic right knee replacement in good position. 4. Metallic ann lateral right leg soft tissue
--- NOTE | 2021-09-24 10:32 | XRR_ITS ---
PROCEDURE INFORMATION: Exam: XR Chest Exam date and time: 09/24/2021 10:43 AM Age: 75 years old Clinical indication: Dyspnea; Additional info: Baseline cxr after possible aspiration event TECHNIQUE: Imaging protocol: Radiologic exam of the chest. Views: 1 view. COMPARISON: CR (CHEST, ) 09/23/2021 8:45 AM FINDINGS: Lungs: Unremarkable. No consolidation. Pleural spaces: Unremarkable. No pleural effusion. No pneumothorax. Heart/Mediastinum: Unremarkable. No cardiomegaly. Bones/joints: Unremarkable. There is been no interval change comparing to prior XR/XR chest 1V portable [id number] IMPRESSION: No acute findings.
[2021-09-24] MEDS: cefTRIAXone 1,000 MG in sodium chloride 0.9% (plus) 50 ML 100 MG IV (11:32)
[2021-09-24 11:59] LABS: Glucose Point of Care 118 mg/dL (70-110)
--- NOTE | 2021-09-24 12:21 | P.PN_ITS ---
Subjective Subjective: No acute vents overnight. Underwent ORIF today. As per anesthesia patient had an episode of aspiration while extubation tube ET tube. Patient was extubated eventually to nasal cannula. Patient had an estimated blood loss of 300 cc during the OR. Has remained hemodynamically stable and afebrile overnight. Blood cultures from admission today came back 1 out of 4 bottles positive for GPC's. Most likely contaminant but patient did receive vancomycin prior to the OR. Repeat blood cultures were sent. Vitals/I&O/Wt Last Vital Signs Temp 98.7 F 09/24/21 12:00 Pulse 102 H 09/24/21 12:00 Resp 16 09/24/21 12:00 BP 121/63 09/24/21 11:30 Pulse Ox 97 09/24/21 12:00 O2 Del Method 09/24/21 12:00 O2 Flow Rate 6 09/24/21 10:39 09/23/21 09/24/21 09/24/21 22:59 06:59 14:59 Intake Total 540 / 710 1000 / 1710 300 / 300 Output Total 400 / 400 500 / 900 400 / 400 Balance 140 / 310 500 / 810 -100 / -100 Weight last 48 hrs Weight 104.734 kg Weight 97.522 kg Physical Exam Narrative: EXAM NARRATIVE: General: No acute distress, AO x3, NC oxygen supplementation HEENT: PERRLA, pupils bilaterally equal and reactive Chest: Bronchial breath sounds b/l , occasional rhonchi all over the lung marie equal good air entry bilaterally, CVS: S1-S2 regular, no murmurs, no tachycardia, no gallops, no rubs Abdomen: Soft, nontender, no organomegaly, bowel sounds present, morbidly obese Neuro: No focal deficits, no facial deformity, AO x3, power 5/5 in all limbs Urinary Catheter Management: Davila: Cath Placed During This Visit: yes, but has since been removed by the nurse Reason for Continuing Indwelling Catheter: Acute Urinary Retention or Obstruction Urinary Catheter Date of Insertion: 09/23/21 Urinary Catheter Time of Insertion: 10:00 Date Urinary Catheter Removed: 09/22/21 Time Urinary Catheter Discontinued: 08:00 Data : 09/24/21 05:15 09/24/21 05:15 Micro: Microbiology 09/23/21 10:28 Urine Culture - Preliminary Urine,Clean Catch Gram Negative Rods 09/23/21 09:02 Blood Culture - Preliminary Blood NEGATIVE TO DATE 09/23/21 09:02 Blood Culture - Preliminary Blood Staphylococcus species 09/23/21 10:28 Bacterial Antigens - Final Urine Kidney 09/23/21 10:28 Legionella Urinary Antigen - Final Urine Catheterized A&P Assessment and plan (1) Femoral distal fracture: Post mechanical fall. Appreciate orthopedic recommendation. Post-ORIF day 0. Monitor hemoglobin. Pain medication, physical therapy postoperatively as per orthopedic team. Status: Acute Qualifiers: Encounter type: initial encounter Fracture morphology: unspecified fracture morphology Fracture type: closed Laterality: right Qualified Code(s): S72.401A - Unspecified fracture of lower end of right femur, initial encounter for closed fracture (2) Heart failure: History of congestive heart failure. Compensated currently. Echocardiogram shows a possible normal EF with grade 1 diastolic dysfunction. Continue to monitor. Status: Acute Qualifiers: Heart failure type: diastolic (3) Acute kidney injury: Baseline creatinine 1. Most likely secondary to slight dehydration. Medical reconciliation done for nephrotoxic drugs. Normal saline at 75 cc/h for 1 bag. Monitor for fluid overload. Status: Acute (4) Anemia: Results appreciated. Start on oral iron supplementation. Vitamin B12 1000 mcg IM once followed by 500 mcg daily. Monitor hemoglobin postoperatively. Status: Acute (5) Fall: Status: Acute (6) Urinary tract infection: History of UTI with Citrobacter. Urine culture positive for gram-negative rods. Continue with IV ceftriaxone. Status: Acute Plan Blood cultures from admission 1 out of 4 bottles positive for Staphylococcus. Most likely a contaminant. Repeat blood cultures sent. C patient did get 1 dose of vancomycin prior to the OR. O check procalcitonin, MRSA swab. Continue with ceftriaxone . Possible aspiration: Event noted while extubating. Extubated to nasal cannula. Continue to monitor. Chest x-ray. For now hold off on any directed antibiotics. Continue other chronic home medications including BuSpar, bupropion, aspirin, gabapentin. Analgesia: Gabapentin at home dose, Tylenol every 6 hourly as needed, morphine 1 mg every 4 hourly. Glycemic control: Insulin sliding scale moderate dose. Check A1c. Nutrition: Cardiac carb consistent diet. N.p.o. after midnight. CODE STATUS: Full code. PUD prophylaxis: Protonix DVT prophylaxis: SCDs Discharge planning: Plan to discharge to SNF postoperatively once medically cleared Admit to [facility] with telemetry This documentation was created by [employer] associate sales representative software. Every effort was made to ensure accuracy of associate sales representative. Any obvious errors or omissions should be clarified with the author of the document. Attestations Medical Necessity Statement*: Requires further hospitalization for postoperative care, post-ORIF Time Spent in Patient Care: Greater than 35 minutes Coding Level of Care Code Acute Air Twister Winder for g Fwd Diagnoses Femoral distal fracture S72.401A Encounter type: initial encounter Fracture morphology: unspecified fracture morphology Fracture type: closed Laterality: right Heart failure I50.9 Heart failure type: diastolic Acute kidney injury N17.9 Anemia D64.9 Fall W19.XXXA Urinary tract infection N39.0
[2021-09-24 13:32] LABS: Procalcitonin 0.13 ng/mL (0-0.5)
[2021-09-24] MEDS: sodium chloride 0.9% 1,000 ML 75 ML IV (13:43)
[2021-09-24] MEDS: cyanocobalamin 1,000 mcg/mL SDV 1000 MCG IM (13:51)
--- NOTE | 2021-09-24 14:08 | PC.OT ---
BEGAN OT EVAL TO GAIN SUBJECTIVE INFO, HOWEVER PT DISORIENTED AFTER SURGERY AND COULD NOT ATTEND ENOUGH TO SAFELY ENGAGE IN TX OR NWB STATUS. WILL ATTEMPT EVALUATION TOMRROW 09/25/21.
[2021-09-24] MEDS: gabapentin 300 mg Capsule 600 MG PO ×2 (14:31→20:08)
[2021-09-24] MEDS: BuSPIRONE 10 mg Tablet 5 MG PO ×2 (14:31→20:08)
[2021-09-24] MEDS: HYDROcodone-acetaminophen 5-325 mg Tablet PO ×2 (15:51→22:31)
[2021-09-24 17:17] LABS: Glucose Point of Care 176 mg/dL (70-110)
[2021-09-24] MEDS: topiramate 100 mg Tablet PO (17:49)
[2021-09-24] MEDS: ferrous gluconate 324 mg Tablet PO (17:49)
[2021-09-24] MEDS: calcium carbonate 500 mg Chew Tablet PO (17:49)
[2021-09-24] MEDS: docusate sodium 100 mg Capsule PO (17:49)
[2021-09-24] MEDS: insulin lispro 100 unit/1 mL SUBCUT ×2 (17:49→20:55)
[2021-09-24 21:03] LABS: Glucose Point of Care 175 mg/dL (70-110)
[2021-09-24] MEDS: enoxaparin 40 mg/0.4 mL Syringe SUBCUT (22:31)
[2021-09-25] VITALS (12 sets, daily range): BP systolic 98–136; BP diastolic 51–88; PULSE 60–109; RESP 16–18; TEMP 36.6–37.1; O2SAT 91–98
[2021-09-25] MEDS: clindamycin 900 MG/50 ML PREMIX 100 MG IV ×2 (00:01→08:57)
[2021-09-25 02:25] LABS: Basophils % 0.2 %; Eosinophils # 0.1 10^3/uL (0.0-0.8); Eosinophils % 0.8 %; Hematocrit 26.8 % (37.0-47.0); Hemoglobin 8.4 g/dL (11.5-15.3); Mean Corpuscular HGB Conc 31.3 g/dL (30.0-36.0); Mean Corpuscular Hemoglobin 32.2 pg (28.0-34.0); Mean Corpuscular Volume 102.7 fl (81-99); Mean Platelet Volume 12.2 fL (7.4-10.4); Monocytes # 1.4 10^3/uL (0.2-0.9); Monocytes % 13.5 %; Neutrophils # 6.81 10^3/uL (1.8-7.7); Neutrophils % 66.1 %; Nucleated Red Blood Cells % 0 %; Platelet Count 134 10^3/cmm (130-400); Red Blood Count 2.61 10^6/uL (4.1-5.3); Red Cell Distribution Width 12.7 % (12.1-15.1); White Blood Count 10.3 10^3/uL (4.0-10.0)
[2021-09-25] MEDS: HYDROcodone-acetaminophen 5-325 mg Tablet PO ×3 (02:51→20:24)
[2021-09-25] MEDS: sodium chloride 0.9% 1,000 ML 75 ML IV ×2 (02:52→15:38)
[2021-09-25 02:53] LABS: Vancomycin Random 10.9 ug/mL (20.0-40.0)
[2021-09-25 02:56] LABS: Alanine Aminotransferase 10 U/L (0-33); Alkaline Phosphatase 76 IU/L (35-105); Anion Gap 16.7 (5-19); Aspartate Amino Transferase 20 U/L (0-32); Blood Urea Nitrogen 19 mg/dL (8-23); Calcium 8.3 mg/dL (8.5-10.5); Carbon Dioxide 22 mmol/L (22-29); Chloride 101 mmol/L (98-107); Globulin 2.8 g/dL (1.3-4.6); Glucose 169 mg/dL (65-115); Osmolality Calculated 288 mOsm/kg (285-295); Potassium 3.7 mmol/L (3.5-5.1); Sodium 136 mmol/L (136-145); Total Bilirubin 0.3 mg/dL (0.15-1.2); Total Protein 5.8 g/dL (6.6-8.7)
[2021-09-25] MEDS: ipratropium-albuterol 3 mL Neb INHALATION ×4 (03:01→20:04)
[2021-09-25 06:36] LABS: Glucose Point of Care 161 mg/dL (70-110)
--- NOTE | 2021-09-25 06:44 | P.PN_ITS ---
Subjective Subjective: POD 1 Patient resting comfortably. Has some mild right leg pain. She is discussing that she is wanting to be discharged home as she states her daughter can provide home health care for her. She denies any chest pain, shortness of breath. Vitals/I&O/Wt Last Vital Signs Temp 97.9 F 09/25/21 04:00 Pulse 77 09/25/21 04:00 Resp 17 09/25/21 04:00 BP 131/74 09/25/21 04:00 Pulse Ox 98 09/25/21 04:00 O2 Del Method 09/25/21 03:01 O2 Flow Rate 2 09/25/21 03:01 09/24/21 09/24/21 09/25/21 14:59 22:59 06:59 Intake Total 590 / 590 470 / 1060 1036.25 / 2096.25 Output Total 400 / 400 650 / 1050 Balance 190 / 190 470 / 660 386.25 / 1046.25 Weight last 48 hrs Weight 230 lb 14.4 oz Weight 215 lb Physical Exam Narrative: Patient is alert and orient x3 has good general appearance normal normal affect. RLE incision is healing nicely. Incision C/D. There is no signs of erythema or drainage no signs of infection. Good motor strength throughout both lower extremities. Fires in all motor groups. Skin is clear warm, feet are warm with good cap refill in all digits. Normal sensation to light touch. Calves are supple, no medial thigh tenderness, negative Homans' sign. No palpable edema peripherally. Urinary Catheter Management: Davila: Cath Placed During This Visit: yes, but has since been removed by the nurse Reason for Continuing Indwelling Catheter: Acute Urinary Retention or Obstruction Urinary Catheter Date of Insertion: 09/23/21 Urinary Catheter Time of Insertion: 10:00 Date Urinary Catheter Removed: 09/22/21 Time Urinary Catheter Discontinued: 08:00 Data : 09/25/21 02:18 09/25/21 02:18 Micro: Microbiology 09/24/21 16:55 Blood Culture - Preliminary Blood SPECIMEN COLLECTED 09/24/21 17:00 Blood Culture - Preliminary Blood SPECIMEN COLLECTED 09/23/21 10:28 Urine Culture - Preliminary Urine,Clean Catch Gram Negative Rods 09/23/21 09:02 Blood Culture - Preliminary Blood NEGATIVE TO DATE 09/23/21 09:02 Blood Culture - Preliminary Blood Staphylococcus species A&P Assessment and plan (1) Femoral distal fracture: Physical therapy to eval and treat with transfers. Continue to ice and elevate right lower extremity. nutritional services director to evaluate for placement consider home health care per patient's request. Status: Acute Qualifiers: Encounter type: initial encounter Fracture morphology: unspecified fracture morphology Fracture type: closed Laterality: right Qualified Code(s): S72.401A - Unspecified fracture of lower end of right femur, initial encounter for closed fracture Attestations Medical Necessity Statement*: Defer to Medical team Coding Level of Care Code Acute Pipe Covering Molder for [facility] Fwd Diagnoses Femoral distal fracture S72.401A Encounter type: initial encounter Fracture morphology: unspecified fracture morphology Fracture type: closed Laterality: right
[2021-09-25] MEDS: cholecalciferol (vitamin D3) 1,000 unit Tablet 2000 UNIT PO (08:57)
[2021-09-25] MEDS: gabapentin 300 mg Capsule 600 MG PO ×3 (08:58→20:24)
[2021-09-25] MEDS: ropinirole 1 mg Tablet PO (08:58)
[2021-09-25] MEDS: BuSPIRONE 10 mg Tablet 5 MG PO ×3 (08:58→20:24)
[2021-09-25] MEDS: topiramate 100 mg Tablet PO ×2 (08:59→17:25)
[2021-09-25] MEDS: cyanocobalamin 1,000 mcg Tablet 500 MCG PO (08:59)
[2021-09-25] MEDS: docusate sodium 100 mg Capsule PO ×2 (09:00→17:25)
[2021-09-25] MEDS: atorvastatin 40 mg Tablet 20 MG PO (09:00)
[2021-09-25] MEDS: calcium carbonate 500 mg Chew Tablet PO ×2 (09:00→17:25)
[2021-09-25] MEDS: pantoprazole DR 40 mg Tablet PO (09:00)
[2021-09-25] MEDS: aspirin 81 mg EC Tablet PO (09:00)
[2021-09-25] MEDS: ferrous gluconate 324 mg Tablet PO ×2 (09:01→17:25)
[2021-09-25] MEDS: insulin lispro 100 unit/1 mL SUBCUT ×3 (09:01→21:09)
[2021-09-25] MEDS: budesonide 0.5 mg/2 mL Neb INHALATION ×2 (09:45→20:04)
[2021-09-25 11:10] LABS: Glucose Point of Care 145 mg/dL (70-110)
[2021-09-25] MEDS: cefTRIAXone 1,000 MG in sodium chloride 0.9% (plus) 50 ML 100 MG IV (11:41)
--- NOTE | 2021-09-25 15:39 | PM.PN ---
Subjective Subjective: Patient is seen sitting up in her bed eating lunch. Complaining about going to a correction and not understanding why her daughter just cannot take care of her. Vitals/I&O/Wt Last Vital Signs Temp 98.2 F 09/25/21 15:15 Pulse 109 H 09/25/21 15:15 Resp 16 09/25/21 15:15 BP 120/88 09/25/21 15:15 Pulse Ox 96 09/25/21 15:15 O2 Del Method 09/25/21 15:15 O2 Flow Rate 2 09/25/21 15:15 09/25/21 09/25/21 09/25/21 06:59 14:59 22:59 Intake Total 1036.25 / 2096.25 460 / 460 957.5 / 1417.5 Output Total 650 / 1050 Balance 386.25 / 1046.25 460 / 460 957.5 / 1417.5 Physical Exam Narrative: Patient is alert and oriented no acute distress. Obesity. Heart: Regular normal S1-S2 without murmurs clicks gallops or rubs lungs: Clear to auscultation without wheezes rales or rhonchi Abdomen: Obese soft nontender nondistended positive bowel sounds Extremities no clubbing cyanosis or edema in the left leg. Right leg is covered no obvious drainage. Urinary Catheter Management: Davila: Cath Placed During This Visit: yes, but has since been removed by the nurse Reason for Continuing Indwelling Catheter: Acute Urinary Retention or Obstruction Urinary Catheter Date of Insertion: 09/23/21 Urinary Catheter Time of Insertion: 10:00 Date Urinary Catheter Removed: 09/22/21 Time Urinary Catheter Discontinued: 08:00 Data : 09/25/21 02:18 09/25/21 02:18 Micro: Microbiology 09/24/21 13:46 MRSA Culture - Final Nose 09/23/21 10:28 Urine Culture - Final Urine,Clean Catch Escherichia coli 09/23/21 09:02 Blood Culture - Preliminary Blood Staphylococcus sp coag neg 09/24/21 16:55 Blood Culture - Preliminary Blood SPECIMEN COLLECTED 09/24/21 17:00 Blood Culture - Preliminary Blood SPECIMEN COLLECTED A&P Assessment and plan (1) Femoral distal fracture: S/P mechanical fall. Post-ORIF day 1. Pain medication, physical therapy postoperatively as per orthopedic team. Status: Acute Qualifiers: Encounter type: initial encounter Fracture morphology: unspecified fracture morphology Fracture type: closed Laterality: right Qualified Code(s): S72.401A - Unspecified fracture of lower end of right femur, initial encounter for closed fracture (2) Heart failure: History of congestive heart failure. Compensated currently. Echocardiogram shows a possible normal EF with grade 1 diastolic dysfunction. Continue to monitor. Status: Acute Qualifiers: Heart failure type: diastolic (3) Acute kidney injury: Baseline creatinine 1. Most likely secondary to slight dehydration. Received fluids yesterday. Status: Acute (4) Anemia: Start on oral iron supplementation. Vitamin B12 1000 mcg IM once followed by 500 mcg daily. Monitor hemoglobin postoperatively. Status: Acute (5) Fall: Status: Acute (6) Urinary tract infection: History of UTI with Citrobacter. Urine culture positive for E. Coli. Sens to IV ceftriaxone. Change to oral cipro Status: Acute Plan Possible aspiration: Event noted while extubating. Extubated to nasal cannula. Continue to monitor. Continue other chronic home medications including BuSpar, bupropion, aspirin, gabapentin. Analgesia: Gabapentin at home dose, Tylenol every 6 hourly as needed, morphine 1 mg every 4 hourly. Glycemic control: Insulin sliding scale moderate dose. Nutrition: Cardiac carb consistent diet. CODE STATUS: Full code. PUD prophylaxis: not indicated DVT prophylaxis: SCDs Discharge planning: Plan to discharge to SNF postoperatively once medically cleared This documentation was created by [employer] travelers' aid worker software. Every effort was made to ensure accuracy of travelers' aid worker. Any obvious errors or omissions should be clarified with the author of the document. Attestations Medical Necessity Statement*: Patient status post R ORIF. Awaiting placement. Coding Level of Care Code Acute Cutting Table Operator for [facility] Fwd Diagnoses Femoral distal fracture S72.401A Encounter type: initial encounter Fracture morphology: unspecified fracture morphology Fracture type: closed Laterality: right Heart failure I50.9 Heart failure type: diastolic Acute kidney injury N17.9 Anemia D64.9 Fall W19.XXXA Urinary tract infection N39.0
[2021-09-25] MEDS: cefdinir 300 MG CAPSULE PO (17:25)
[2021-09-25 17:29] LABS: Glucose Point of Care 134 mg/dL (70-110)
[2021-09-25] MEDS: enoxaparin 40 mg/0.4 mL Syringe SUBCUT (20:24)
--- NOTE | 2021-09-25 21:15 | PC.NURSE ---
Blood glucose 161.
[2021-09-26] VITALS (15 sets, daily range): BP systolic 91–137; BP diastolic 54–84; PULSE 80–105; RESP 15–19; TEMP 36.5–37.2; O2SAT 95–100
--- NOTE | 2021-09-26 00:26 | PC.NURSE ---
Patient woke up and stated to nurse, If I had a wheelchair, I'd go in the front room. Nurse stated to patient, you are in the hospital. Patient states oh shoot, I forgot.
[2021-09-26] MEDS: ipratropium-albuterol 3 mL Neb INHALATION ×4 (02:51→20:44)
--- NOTE | 2021-09-26 05:30 | PC.NURSE ---
Patient woke up confused. Patient pulled out IV and oxygen. Patient stated I don't know to place and stated 2009 to . Patient tearful. Around 10 minuets later, patient was able to answer correctly to person, place, time, and situation without assistance. Neuro assessment WNL.
[2021-09-26] MEDS: TRAMadol 50 mg Tablet PO ×2 (05:45→21:20)
[2021-09-26 06:54] LABS: Glucose Point of Care 123 mg/dL (70-110)
--- NOTE | 2021-09-26 08:43 | PC.SOCIAL ---
Pg 2 IMM Explained to pt Pg 2 IMM. No questions voiced. Provided pt a copy. Initialed, dated, & timed a copy & placed in chart.
[2021-09-26] MEDS: calcium carbonate 500 mg Chew Tablet PO ×2 (08:44→18:25)
[2021-09-26] MEDS: cholecalciferol (vitamin D3) 1,000 unit Tablet 2000 UNIT PO (08:44)
[2021-09-26] MEDS: BuSPIRONE 10 mg Tablet 5 MG PO ×3 (08:44→20:21)
[2021-09-26] MEDS: ropinirole 1 mg Tablet PO (08:46)
[2021-09-26] MEDS: cefdinir 300 MG CAPSULE PO ×2 (08:46→18:25)
[2021-09-26] MEDS: docusate sodium 100 mg Capsule PO ×2 (08:46→18:25)
[2021-09-26] MEDS: HYDROcodone-acetaminophen 5-325 mg Tablet PO ×2 (08:48→23:16)
[2021-09-26] MEDS: atorvastatin 40 mg Tablet 20 MG PO ×2 (08:48→20:21)
[2021-09-26] MEDS: topiramate 100 mg Tablet PO ×2 (08:49→18:25)
[2021-09-26] MEDS: cyanocobalamin 1,000 mcg Tablet 500 MCG PO (08:49)
[2021-09-26] MEDS: gabapentin 300 mg Capsule 600 MG PO ×3 (08:49→20:21)
[2021-09-26] MEDS: pantoprazole DR 40 mg Tablet PO (08:49)
[2021-09-26] MEDS: aspirin 81 mg EC Tablet PO (08:49)
[2021-09-26] MEDS: ferrous gluconate 324 mg Tablet PO (08:50)
[2021-09-26] MEDS: budesonide 0.5 mg/2 mL Neb INHALATION ×2 (09:48→20:44)
[2021-09-26 12:04] LABS: Glucose Point of Care 147 mg/dL (70-110)
[2021-09-26] MEDS: sodium chloride 0.9% 1,000 ML 75 ML IV (12:18)
--- NOTE | 2021-09-26 13:47 | P.PN_ITS ---
Subjective Subjective: Patient is seen sitting up in chair about to sleep. no new complaints Vitals/I&O/Wt Last Vital Signs Temp 97.9 F 09/26/21 08:00 Pulse 88 09/26/21 11:40 Resp 19 H 09/26/21 11:40 BP 106/70 09/26/21 11:40 Pulse Ox 100 09/26/21 11:40 O2 Del Method 09/26/21 09:48 O2 Flow Rate 2 09/26/21 09:48 09/25/21 09/26/21 09/26/21 22:59 06:59 14:59 Intake Total 1277.5 / 1737.5 1000 / 2737.5 480 / 480 Output Total 1100 / 1100 1850 / 2950 Balance 177.5 / 637.5 -850 / -212.5 480 / 480 Physical Exam Narrative: Patient is alert and oriented no acute distress. Obese. Heart: Regular normal S1-S2 without murmurs clicks gallops or rubs lungs: Clear to auscultation without wheezes rales or rhonchi Abdomen: Obese soft nontender nondistended positive bowel sounds Extremities no clubbing cyanosis or edema in the left leg. Right leg is covered no obvious drainage. Urinary Catheter Management: Davila: Cath Placed During This Visit: yes, but has since been removed by the nurse Reason for Continuing Indwelling Catheter: Perioperative Use in Selected Surgeries Urinary Catheter Date of Insertion: 09/23/21 Urinary Catheter Time of Insertion: 10:00 Date Urinary Catheter Removed: 09/22/21 Time Urinary Catheter Discontinued: 08:00 Data : 09/25/21 02:18 09/25/21 02:18 Micro: Microbiology 09/24/21 17:00 Blood Culture - Preliminary Blood NEGATIVE TO DATE 09/24/21 16:55 Blood Culture - Preliminary Blood NEGATIVE TO DATE 09/24/21 13:46 MRSA Culture - Final Nose 09/23/21 10:28 Urine Culture - Final Urine,Clean Catch Escherichia coli 09/23/21 09:02 Blood Culture - Preliminary Blood Staphylococcus sp coag neg A&P Assessment and plan (1) Femoral distal fracture: S/P mechanical fall. Post-ORIF day 2 Pain medication, physical therapy postoperatively Awaiting placement for rehab Status: Acute Qualifiers: Encounter type: initial encounter Fracture morphology: unspecified fracture morphology Fracture type: closed Laterality: right Qualified Code(s): S72.401A - Unspecified fracture of lower end of right femur, initial encounter for closed fracture (2) Heart failure: History of congestive heart failure. Compensated currently. Echocardiogram shows a possible normal EF with grade 1 diastolic dysfunction. Continue to monitor. Status: Acute Qualifiers: Heart failure type: diastolic (3) Acute kidney injury: Baseline creatinine 1. Most likely secondary to slight dehydration. Received fluids yesterday. will monitor Status: Acute (4) Anemia: appears secondary to Vitamin B12 deficiency. Given 1000 mcg IM once followed by 500 mcg daily. do not see indication for iron. Status: Acute (5) Fall: Status: Acute (6) Urinary tract infection: History of UTI with Citrobacter. Urine culture positive for E. Coli. Sens to IV ceftriaxone. Change to oral cipro Status: Acute Plan Possible aspiration: Event noted while extubating. Extubated to nasal cannula. Continue to monitor. Continue other chronic home medications including BuSpar, bupropion, aspirin, gabapentin. Analgesia: Gabapentin at home dose, Tylenol every 6 hourly as needed, morphine 1 mg every 4 hourly. Will add oral agent to manage pain better. Glycemic control: Insulin sliding scale moderate dose. Nutrition: Cardiac carb consistent diet. CODE STATUS: Full code. PUD prophylaxis: not indicated DVT prophylaxis: SCDs Discharge planning: Plan to discharge to SNF. Awaiting acceptance This documentation was created by [employer] janitor caretaker software. Every effort was made to ensure accuracy of janitor caretaker. Any obvious errors or omissions should be clarified with the author of the document. Attestations Medical Necessity Statement*: Patient status post R ORIF. Awaiting placement. Coding Level of Care Code Acute Senior Windows Systems Administrator for [facility] Diagnoses Femoral distal fracture S72.401A Encounter type: initial encounter Fracture morphology: unspecified fracture morphology Fracture type: closed Laterality: right Heart failure I50.9 Heart failure type: diastolic Acute kidney injury N17.9 Anemia D64.9 Fall W19.XXXA Urinary tract infection N39.0
[2021-09-26 17:39] LABS: Glucose Point of Care 193 mg/dL (70-110)
[2021-09-26] MEDS: insulin lispro 100 unit/1 mL SUBCUT ×2 (18:25→21:20)
[2021-09-26 20:16] LABS: Glucose Point of Care 160 mg/dL (70-110)
[2021-09-26] MEDS: enoxaparin 40 mg/0.4 mL Syringe SUBCUT (20:21)
[2021-09-27] VITALS (23 sets, daily range): BP systolic 86–125; BP diastolic 51–69; PULSE 74–148; RESP 16–18; TEMP 36.4–37.2; O2SAT 92–100
--- NOTE | 2021-09-27 00:20 | ECG_ITS ---
[facility] Test Date: 2021-09-27 Pat Name: Chanda Cedeno Department: Room: 251 Gender: Female Senior Core Java Developer: : 1945 Requested By: Saud Cuevas Order Number: [id number] Opal MD: Ryan Jimenez M.D. Measurements Intervals [place] Rate: 104 P: MI: QRS: 14 QRSD: 93 T: -38 QT: 286 QTc: 376 Interpretive Statements ATRIAL FIBRILLATION WITH RAPID VENTRICULAR RESPONSE NONSPECIFIC ST & T-WAVE ABNORMALITY Compared to ECG 09/23/2021 08:27:18 T-wave abnormality now present Sinus rhythm no longer present ST (T wave) deviation no longer present Electronically Signed On 09-27-2021 17:18:18 CDT by Ryan Jimenez M.D. [id number]
[2021-09-27] MEDS: metoprolol tartrate 1 mg/1 mL SDV 5 mL 5 MG IVP ×2 (00:32→21:13)
[2021-09-27] MEDS: sodium chloride 0.9% 250 ML IV (01:06)
[2021-09-27] MEDS: sodium chloride 0.9% 500 ML 999 ML IV (01:38)
--- NOTE | 2021-09-27 02:42 | ECG_ITS ---
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 Measurements Intervals [place] Rate: 96 P: 39 IA: 141 QRS: 13 QRSD: 86 T: 29 QT: 350 QTc: 443 Interpretive Statements SINUS RHYTHM WITH FREQUENT SUPRAVENTRICULAR PREMATURE COMPLEXES ABNORMAL RHYTHM ECG Compared to ECG 09/27/2021 00:23:44 Atrial fibrillation no longer present T-wave abnormality no longer present Electronically Signed On 09-27-2021 17:20:49 CDT by Ryan Jimenez M.D. [id number]
[2021-09-27] MEDS: ipratropium-albuterol 3 mL Neb INHALATION ×3 (02:47→21:02)
[2021-09-27 03:01] LABS: Basophils % 0.4 %; Eosinophils # 0.3 10^3/uL (0.0-0.8); Eosinophils % 3.2 %; Hematocrit 21.5 % (37.0-47.0); Hemoglobin 6.9 g/dL (11.5-15.3); Lymphocytes # 1.6 10^3/uL (0.8-4.8); Lymphocytes % 19.5 %; Mean Corpuscular HGB Conc 32.1 g/dL (30.0-36.0); Mean Corpuscular Hemoglobin 31.9 pg (28.0-34.0); Mean Corpuscular Volume 99.5 fl (81-99); Monocytes # 0.8 10^3/uL (0.2-0.9); Monocytes % 9.9 %; Neutrophils # 5.43 10^3/uL (1.8-7.7); Neutrophils % 66.6 %; Nucleated Red Blood Cells % 0 %; Platelet Count 141 10^3/cmm (130-400); Red Blood Count 2.16 10^6/uL (4.1-5.3); Red Cell Distribution Width 12.7 % (12.1-15.1); White Blood Count 8.2 10^3/uL (4.0-10.0)
--- NOTE | 2021-09-27 03:12 | PC.NURSE ---
Around 0020, patient went into A-fib on the monitor with heart rate of 148 and blood pressure 102/58. Dr. Cuevas ordered 5 mg IV Metoprolol. After this heart rate 115 and blood pressure 85/57. Dr. Arteaga ordered 250 ml NS bolus. After this, blood pressure 86/56 and heart rate 125. Ordered to give 500 ml NS bolus. Blood pressure then 88/48 and heart rate 125. Shortly after this, patient converted to sinus rhythm. Blood pressure 90/57. Dr. Cuevas notified.
[2021-09-27 03:26] LABS: Troponin(5th) Baseline 18 ng/L (0-10)
[2021-09-27 03:27] LABS: Alanine Aminotransferase 12 U/L (0-33); Albumin Level 2.7 g/dL (3.5-5.2); Alkaline Phosphatase 79 U/L (35-105); Anion Gap 13.6 (5-19); Aspartate Amino Transferase 31 U/L (0-32); Blood Urea Nitrogen 16 mg/dL (8-23); Calcium 8.1 mg/dL (8.5-10.5); Carbon Dioxide 22 mmol/L (22-29); Chloride 104 mmol/L (98-107); Globulin 2.4 g/dL (1.3-4.6); Glucose 133 mg/dL (65-115); Magnesium 1.7 mg/dL (1.7-2.3); Osmolality Calculated 285 mOsm/kg (285-295); Phosphorus 2.7 mg/dL (2.5-4.5); Potassium 3.6 mmol/L (3.5-5.1); Sodium 136 mmol/L (136-145); Total Bilirubin 0.4 mg/dL (0.15-1.2); Total Protein 5.1 g/dL (6.6-8.7)
--- NOTE | 2021-09-27 05:15 | PC.NURSE ---
Patient having hallucinations.
[2021-09-27 05:17] LABS: Troponin 5 2HR 20.65 ng/L (0-10)
[2021-09-27 05:28] LABS: Troponin 5 2HR Delta 2.65 ABS# (0-10)
--- NOTE | 2021-09-27 05:44 | ECG_ITS ---
[facility] Test Date: 2021-09-27 Pat Name: Chanda Cedeno Department: Room: 251 Gender: Female Medicare Compliance Auditor: : 1945 Requested By: Saud Cuevas Order Number: [id number] Opal MD: Ryan Jimenez M.D. Measurements Intervals [place] Rate: 92 P: 40 CO: 130 QRS: 31 QRSD: 91 T: 42 QT: 374 QTc: 464 Interpretive Statements SINUS RHYTHM WITH FREQUENT SUPRAVENTRICULAR PREMATURE COMPLEXES NONSPECIFIC ST & T-WAVE ABNORMALITY Compared to ECG 09/27/2021 02:42:25 T-wave abnormality now present Electronically Signed On 09-27-2021 17:20:42 CDT by Ryan Jimenez M.D. [id number]
[2021-09-27] MEDS: HYDROcodone-acetaminophen 5-325 mg Tablet PO ×2 (05:55→20:04)
[2021-09-27 06:23] LABS: Glucose Point of Care 152 mg/dL (70-110)
[2021-09-27] MEDS: budesonide 0.5 mg/2 mL Neb INHALATION ×2 (07:34→21:02)
[2021-09-27 08:49] LABS: Troponin 5 6HR 21.28 ng/L (0-10)
[2021-09-27 08:52] LABS: Troponin 5 6HR Delta 3.28 ng/L (0-12)
[2021-09-27] MEDS: ropinirole 1 mg Tablet PO (09:16)
[2021-09-27] MEDS: topiramate 100 mg Tablet PO ×2 (09:16→17:31)
[2021-09-27] MEDS: cefdinir 300 MG CAPSULE PO ×2 (09:16→17:31)
[2021-09-27] MEDS: cyanocobalamin 1,000 mcg Tablet 500 MCG PO (09:16)
[2021-09-27] MEDS: cholecalciferol (vitamin D3) 1,000 unit Tablet 2000 UNIT PO (09:16)
[2021-09-27] MEDS: calcium carbonate 500 mg Chew Tablet PO ×2 (09:16→17:31)
[2021-09-27] MEDS: docusate sodium 100 mg Capsule PO ×2 (09:16→17:31)
[2021-09-27] MEDS: gabapentin 300 mg Capsule 600 MG PO ×3 (09:16→20:05)
[2021-09-27] MEDS: pantoprazole 40 mg SDV IVP (09:17)
[2021-09-27] MEDS: aspirin 81 mg EC Tablet PO (09:17)
[2021-09-27] MEDS: BuSPIRONE 10 mg Tablet 5 MG PO ×3 (09:17→20:05)
[2021-09-27] MEDS: sucralfate 1 gm Tablet PO ×4 (09:22→20:05)
[2021-09-27] MEDS: sodium chloride 0.9% (100 ml) 100 ML 50 ML (11:43)
[2021-09-27 11:47] LABS: Glucose Point of Care 139 mg/dL (70-110)
[2021-09-27 12:31] LABS: Glucose Point of Care 161 mg/dL (70-110)
--- NOTE | 2021-09-27 13:43 | PC.NURSE ---
Pt with c/o not feeling good' patient check are pink, pt daughter at bedside, pt Bilateral lower lobes with wheezes, notified x2 Dr. Kim via data entry machine operator and volate awaiting call back. Pt given Tylenol.
[2021-09-27] MEDS: acetaminophen 325 mg Tablet 650 MG PO (13:47)
--- NOTE | 2021-09-27 14:36 | PC.NURSE ---
Dr. Kim at bedside, pt right dressing removed, cleanse with normal saline placed a island dressing over ann, orders given for IVP lasix 40mg xonce. Pt c/o drying of nose and sinuses, humidifier placed on o2. Pt resting in bed.
[2021-09-27] MEDS: FUROsemide 10 mg/mL SDV 4mL 40 MG IVP (14:52)
[2021-09-27 17:21] LABS: Glucose Point of Care 163 mg/dL (70-110)
[2021-09-27] MEDS: insulin lispro 100 unit/1 mL SUBCUT ×2 (17:31→21:03)
[2021-09-27 17:32] LABS: Hematocrit 25.6 % (37.0-47.0); Hemoglobin 8.1 g/dL (11.5-15.3)
--- NOTE | 2021-09-27 17:48 | P.PN_ITS ---
Subjective Subjective: Patient was without complaints when I saw her this morning receiving blood. However during the blood transfusion she became acutely short of breath per RN blood transfusion was stopped. She was given 40 mg of Lasix. Her after this and again she was feeling fine Vitals/I&O/Wt Last Vital Signs Temp 97.8 F 09/27/21 15:44 Pulse 87 09/27/21 15:44 Resp 17 09/27/21 15:44 BP 113/60 09/27/21 15:44 Pulse Ox 100 09/27/21 15:44 O2 Del Method 09/27/21 07:34 O2 Flow Rate 2 09/27/21 07:34 09/27/21 09/27/21 09/27/21 06:59 14:59 22:59 Intake Total 750 / 1781.25 710 / 710 Output Total 1650 / 1650 1200 / 1200 Balance -900 / 131.25 -490 / -490 Physical Exam Narrative: Patient is alert and oriented no acute distress. Obese. Heart: Regular normal S1-S2 without murmurs clicks gallops or rubs lungs: Clear to auscultation without wheezes rales or rhonchi Abdomen: Obese soft nontender nondistended positive bowel sounds Extremities: Left leg without edema. Due to the acute blood loss anemia the compression dressing was unwrapped on the right surgical leg. There was significant edema on this right leg up to groin. The edema was also concentrated just above the compression dressing. There is some mild oozing from the middle part of the incision. Urinary Catheter Management: Davila: Cath Placed During This Visit: yes, but has since been removed by the nurse Reason for Continuing Indwelling Catheter: Other Urinary Catheter Date of Insertion: 09/23/21 Urinary Catheter Time of Insertion: 10:00 Date Urinary Catheter Removed: 09/22/21 Time Urinary Catheter Discontinued: 08:00 Data : 09/27/21 17:29 09/27/21 02:25 A&P Assessment and plan (1) Femoral distal fracture: S/P mechanical fall. Post-ORIF day Pain medication, physical therapy postoperatively Found placement however had to hold transfer due to acute anemia Status: Acute Qualifiers: Encounter type: initial encounter Fracture morphology: unspecified fracture morphology Fracture type: closed Laterality: right Qualified Code(s): S72.401A - Unspecified fracture of lower end of right femur, initial encounter for closed fracture (2) Heart failure: History of congestive heart failure. Echocardiogram shows a possible normal EF with grade 1 diastolic dysfunction. Acute chf with blood transfusion. Given lasix 40 mg times 1 and patient markedly improved. Status: Acute Qualifiers: Heart failure type: diastolic (3) Acute kidney injury: Baseline creatinine 1. Most likely secondary to slight dehydration. Received fluids yesterday. will monitor Status: Acute (4) Anemia: appears secondary to Vitamin B12 deficiency. Given 1000 mcg IM once followed by 500 mcg daily. do not see indication for iron. Status: Acute (5) Fall: Status: Acute (6) Urinary tract infection: History of UTI with Citrobacter. Urine culture positive for E. Coli. Sens to IV ceftriaxone. Changed to oral omnicef due to cipro interaction with home med Status: Acute (7) Acute blood loss as cause of postoperative anemia: Patient dropped to grams of hemoglobin today acutely. Suspect postoperative bleeding. I discussed with Dr. Ortega's PA Jim and its most likely hematoma t hat is self contained. sHe was given 1 unit of packed red blood cells. Repeat H&H shows a hemoglobin of 8.1 Will repeat in a.m. Status: Acute (8) Hematoma of right lower extremity: Postoperative. Will follow closely. Nurse and I both examined leg together. There was some mild oozing after we remove the dressing. Another H&H in a.m. Status: Acute Plan Possible aspiration: Event noted while extubating. Extubated to nasal cannula. Continue to monitor. Continue other chronic home medications including BuSpar, bupropion, aspirin, g abapentin. Analgesia: Gabapentin at home dose, Tylenol every 6 hourly as needed. Will add oral agent to manage pain better. Glycemic control: Insulin sliding scale moderate dose. Nutrition: Cardiac carb consistent diet. CODE STATUS: Full code. PUD prophylaxis: not indicated DVT prophylaxis: SCDs Discharge planning: Plan to discharge to SNF. Facility accepted. However will wait till medically stable. This documentation was created by [employer] fish inspector software. Every effort was made to ensure accuracy of fish inspector. Any obvious errors or omissions should be clarified with the author of the document. Attestations Medical Necessity Statement*: Patient status post R ORIF. Patient lost 2 units of blood in right lower extremity will need to monitor closely prior to discharge. Coding Level of Care Code Acute Substation Electrician for [facility] Fwd Diagnoses Femoral distal fracture S72.401A Encounter type: initial encounter Fracture morphology: unspecified fracture morphology Fracture type: closed Laterality: right Heart failure I50.9 Heart failure type: diastolic Acute kidney injury N17.9 Anemia D64.9 Fall W19.XXXA Urinary tract infection N39.0 Acute blood loss as cause of postoperative anemia D62 Hematoma of right lower extremity S80.11XA
[2021-09-27] MEDS: atorvastatin 40 mg Tablet 20 MG PO (20:05)
[2021-09-27 20:34] LABS: Glucose Point of Care 149 mg/dL (70-110)
--- NOTE | 2021-09-27 21:22 | PC.NURSE ---
HR/AFIB Pts HR running 120'-130's consistently with A-fib present. Occ spike up to 150's-160's but this not sustained for long. RN gave IV Metoprolol per order for HR >120. Will monitor. Pt is asymptomatic
--- NOTE | 2021-09-27 21:55 | PC.NURSE ---
HR UPDATE Pt is now in SR with PAC's, HR 90's. Will continue to monitor
[2021-09-28] VITALS (10 sets, daily range): BP systolic 113–125; BP diastolic 58–75; PULSE 86–111; RESP 15–19; TEMP 36.4–36.9; O2SAT 92–99
[2021-09-28 03:11] LABS: Hematocrit 24.1 % (37.0-47.0); Hemoglobin 7.6 g/dL (11.5-15.3)
[2021-09-28] MEDS: ipratropium-albuterol 3 mL Neb INHALATION ×2 (03:13→20:58)
[2021-09-28] MEDS: HYDROcodone-acetaminophen 5-325 mg Tablet PO ×4 (03:30→21:17)
[2021-09-28] MEDS: sucralfate 1 gm Tablet PO ×4 (06:15→21:17)
[2021-09-28 06:25] LABS: Glucose Point of Care 129 mg/dL (70-110)
[2021-09-28] MEDS: ropinirole 1 mg Tablet PO (08:41)
[2021-09-28] MEDS: cefdinir 300 MG CAPSULE PO ×2 (08:41→18:39)
[2021-09-28] MEDS: gabapentin 300 mg Capsule 600 MG PO ×3 (08:42→21:17)
[2021-09-28] MEDS: cyanocobalamin 1,000 mcg Tablet 500 MCG PO (08:42)
[2021-09-28] MEDS: topiramate 100 mg Tablet PO ×2 (08:42→18:40)
[2021-09-28] MEDS: BuSPIRONE 10 mg Tablet 5 MG PO ×3 (08:43→21:17)
[2021-09-28] MEDS: cholecalciferol (vitamin D3) 1,000 unit Tablet 2000 UNIT PO (08:43)
[2021-09-28] MEDS: calcium carbonate 500 mg Chew Tablet PO ×2 (08:43→18:39)
[2021-09-28] MEDS: docusate sodium 100 mg Capsule PO ×2 (08:43→18:40)
[2021-09-28] MEDS: aspirin 81 mg EC Tablet PO (08:43)
--- NOTE | 2021-09-28 09:17 | PC.SOCIAL ---
IMM updated Copy of page 2 provided to pt at bedside. Patient verbalized understanding. Initialed, dated, & timed a copy & placed in chart.
[2021-09-28] MEDS: metoprolol tartrate 1 mg/1 mL SDV 5 mL 5 MG IVP (11:32)
[2021-09-28 13:07] LABS: Glucose Point of Care 145 mg/dL (70-110)
[2021-09-28] MEDS: insulin lispro 100 unit/1 mL SUBCUT ×2 (13:21→22:07)
[2021-09-28 17:06] LABS: Hemoglobin 7.7 g/dL (11.5-15.3)
[2021-09-28 17:29] LABS: Glucose Point of Care 102 mg/dL (70-110)
--- NOTE | 2021-09-28 17:34 | P.PN_ITS ---
Subjective Subjective: Patient states she feels better today. Vitals/I&O/Wt Last Vital Signs Temp 98.1 F 09/28/21 16:00 Pulse 86 09/28/21 16:00 Resp 16 09/28/21 16:00 BP 118/68 09/28/21 16:00 Pulse Ox 98 09/28/21 16:00 O2 Del Method 09/28/21 16:00 O2 Flow Rate 2 09/27/21 07:34 09/28/21 09/28/21 09/28/21 06:59 14:59 22:59 Intake Total 360 / 1550 360 / 360 240 / 600 Output Total 1600 / 2800 1300 / 1300 Balance -1240 / -1250 -940 / -940 240 / -700 Physical Exam Narrative: Patient is alert and oriented no acute distress. Obese. She is smiling. Asking to go home. Her color looks better today. Heart: Regular normal S1-S2 without murmurs clicks gallops or rubs when I saw her this morning. Note she later went back into A. fib with RVR. When she receives the metoprolol she returns to normal sinus rhythm. lungs: Clear to auscultation without wheezes rales or rhonchi Abdomen: Obese soft nontender nondistended positive bowel sounds Extremities: Left leg without edema. Due to the acute blood loss anemia the compression dressing was unwrapped on the right surgical leg. There was significant edema on this right leg up to groin. The edema was also concentr ated just above the compression dressing. There is some mild oozing from the middle part of the incision. Urinary Catheter Management: Davila: Cath Placed During This Visit: yes, but has since been removed by the nurse Reason for Continuing Indwelling Catheter: Required Immobilization for Trauma or Surgery or Anesthesia Urinary Catheter Date of Insertion: 09/23/21 Urinary Catheter Time of Insertion: 10:00 Date Urinary Catheter Removed: 09/22/21 Time Urinary Catheter Discontinued: 08:00 Data : 09/28/21 17:00 09/27/21 02:25 Micro: Microbiology 09/23/21 09:02 Blood Culture - Final Blood Staphylococcus sp coag neg 09/23/21 09:02 Blood Culture - Final Blood NO GROWTH AFTER 5 DAYS A&P Assessment and plan (1) Femoral distal fracture: S/P mechanical fall. Post-ORIF day 4 with postop bleeding. Pain medication, physical therapy postoperatively Found placement however had to hold transfer due to acute anemia-patient's hemoglobin remained 7.7 today. She does not meet criteria for further transfusion at this time will reevaluate today. If her hemoglobin remains less than 8 will transfuse 1 unit of blood overnight Status: Acute Qualifiers: Encounter type: initial encounter Fracture morphology: unspecified fracture morphology Fracture type: closed Laterality: right Qualified Code(s): S72.401A - Unspecified fracture of lower end of right femur, initial encounter for closed fracture (2) Heart failure: History of congestive heart failure. Echocardiogram shows a possible normal EF with grade 1 diastolic dysfunction. Acute chf with blood transfusion on 09/27/2021. Given lasix 40 mg and patient markedly improved. Status: Acute Qualifiers: Heart failure type: diastolic (3) Acute kidney injury: Baseline creatinine 1. Most likely secondary to slight dehydration. Received fluids yesterday. will monitor Status: Acute (4) Anemia: appears secondary to Vitamin B12 deficiency. Given 1000 mcg IM once followed by 500 mcg daily. do not see indication for iron. Status: Acute (5) Fall: Status: Acute (6) Urinary tract infection: History of UTI with Citrobacter. Urine culture positive for E. Coli. Sens to IV ceftriaxone. Changed to oral omnicef due to cipro interaction with home med Status: Acute (7) Acute blood loss as cause of postoperative anemia: Patient dropped to grams of hemoglobin yesterday acutely due to postoperative bleeding into surgical site. I discussed with Dr. Ortega's PA Jim and its most likely hematoma that is self contained. She was given 1 unit of packed red blood cells. Unfortunately the hemoglobin is still trending downward. However I was encouraged with patient's clinical status she appears well without symptoms. We will check another H&H in the evening and tomorrow. Status: Acute (8) Hematoma of right lower extremity: Postoperative. Surgical site with no further blood loss. I do suspect suspect that the bleeding stopped and was tamponaded off. Status: Acute (9) Atrial fibrillation with RVR: A. fib with RVR appears new postsurgical. When her rate is controlled she typically converts back to normal sinus rhythm. She responds well to metoprolol. I will place her on Cardizem 30 mg p.o. every [address] I can adjust accordingly if her blood pressure drops. I have also started digoxin which will help with heart rate and not affect blood pressure. Status: Acute Plan Possible aspiration: Event noted while extubating. Extubated to nasal cannula. Continue to monitor. Continue other chronic home medications including BuSpar, bupropion, aspirin, gabapentin. Discharge planning: Plan to discharge to SNF. Facility accepted. However will wait till medically stable. This documentation was created by [employer] architecture department chair software. Every effort was made to ensure accuracy of architecture department chair. Any obvious errors or omissions should be clarified with the author of the document. Attestations Medical Necessity Statement*: Patient status post R ORIF. Patient lost 2 units of blood in right lower extremity will need to monitor closely prior to discharge. Coding Level of Care Code Acute Blue Print Control Clerk for [facility] Diagnoses Femoral distal fracture S72.401A Encounter type: initial encounter Fracture morphology: unspecified fracture morphology Fracture type: closed Laterality: right Heart failure I50.9 Heart failure type: diastolic Acute kidney injury N17.9 Anemia D64.9 Fall W19.XXXA Urinary tract infection N39.0 Acute blood loss as cause of postoperative anemia D62 Hematoma of right lower extremity S80.11XA Atrial fibrillation with RVR I48.91
[2021-09-28] MEDS: dilTIAZem 30 mg Tablet PO ×2 (18:39→23:41)
[2021-09-28] MEDS: budesonide 0.5 mg/2 mL Neb INHALATION (20:58)
[2021-09-28] MEDS: atorvastatin 40 mg Tablet 20 MG PO (21:17)
[2021-09-28] MEDS: apixaban 5 mg Tablet PO (21:17)
[2021-09-28 21:41] LABS: Glucose Point of Care 157 mg/dL (70-110)
[2021-09-29] VITALS (7 sets, daily range): BP systolic 91–130; BP diastolic 56–69; PULSE 72–90; RESP 16–20; TEMP 36.5–37.2; O2SAT 94–100
[2021-09-29] MEDS: dilTIAZem 30 mg Tablet PO ×2 (05:42→12:55)
[2021-09-29] MEDS: HYDROcodone-acetaminophen 5-325 mg Tablet PO ×2 (05:42→12:55)
[2021-09-29] MEDS: sucralfate 1 gm Tablet PO ×2 (06:17→12:55)
[2021-09-29 06:21] LABS: Glucose Point of Care 142 mg/dL (70-110)
[2021-09-29] MEDS: ipratropium-albuterol 3 mL Neb INHALATION (07:57)
[2021-09-29] MEDS: budesonide 0.5 mg/2 mL Neb INHALATION (07:57)
[2021-09-29 09:05] LABS: Basophils % 0.6 %; Eosinophils # 0.3 10^3/uL (0.0-0.8); Eosinophils % 4.6 %; Hematocrit 24.7 % (37.0-47.0); Hemoglobin 7.8 g/dL (11.5-15.3); Lymphocytes # 2.3 10^3/uL (0.8-4.8); Lymphocytes % 31.6 %; Mean Corpuscular HGB Conc 31.6 g/dL (30.0-36.0); Mean Corpuscular Hemoglobin 31.6 pg (28.0-34.0); Mean Platelet Volume 10.5 fL (7.4-10.4); Monocytes # 0.6 10^3/uL (0.2-0.9); Monocytes % 8.5 %; Neutrophils # 3.88 10^3/uL (1.8-7.7); Neutrophils % 54.3 %; Nucleated Red Blood Cells % 0 %; Platelet Count 225 10^3/cmm (130-400); Red Blood Count 2.47 10^6/uL (4.1-5.3); Red Cell Distribution Width 13.2 % (12.1-15.1); White Blood Count 7.2 10^3/uL (4.0-10.0)
[2021-09-29] MEDS: insulin lispro 100 unit/1 mL SUBCUT (09:41)
[2021-09-29] MEDS: docusate sodium 100 mg Capsule PO (09:42)
[2021-09-29] MEDS: cholecalciferol (vitamin D3) 1,000 unit Tablet 2000 UNIT PO (09:42)
[2021-09-29] MEDS: cyanocobalamin 1,000 mcg Tablet 500 MCG PO (09:42)
[2021-09-29] MEDS: topiramate 100 mg Tablet PO (09:42)
[2021-09-29] MEDS: calcium carbonate 500 mg Chew Tablet PO (09:43)
[2021-09-29] MEDS: BuSPIRONE 10 mg Tablet 5 MG PO (09:43)
[2021-09-29] MEDS: gabapentin 300 mg Capsule 600 MG PO (09:43)
[2021-09-29] MEDS: apixaban 5 mg Tablet PO (09:47)
[2021-09-29] MEDS: aspirin 81 mg EC Tablet PO (09:47)
[2021-09-29] MEDS: cefdinir 300 MG CAPSULE PO (09:49)
[2021-09-29] MEDS: ropinirole 1 mg Tablet PO (09:55)
--- NOTE | 2021-09-29 11:05 | PM.DCS ---
Discharge Providers Date of Admission: 09/23/21 09:47 Date of Discharge: September 29, 2021 Attending Provider at Admission: Bandar Elkins MD Attending Provider at Discharge: Jose G Price DO Consults: orthopedics- Dr. Ortega Primary Care Provider: Jennie Birmingham Diagnoses at Discharge Discharge Diagnosis (1) Femoral distal fracture: Status: Acute Qualifiers: Encounter type: initial encounter Fracture morphology: unspecified fracture morphology Fracture type: closed Laterality: right Qualified Code(s): S72.401A - Unspecified fracture of lower end of right femur, initial encounter for closed fracture (2) Heart failure: Status: Acute Qualifiers: Heart failure type: diastolic (3) Acute kidney injury: Status: Acute (4) Anemia: Status: Acute (5) Fall: Status: Acute (6) Urinary tract infection: Status: Acute (7) Acute blood loss as cause of postoperative anemia: Status: Acute (8) Hematoma of right lower extremity: Status: Acute (9) Atrial fibrillation with RVR: Status: Acute Reason for Visit Reason for Visit: RIGHT KNEE PAIN S/P FALL Brief History: Patient presented to the emergency room on September 23, 2021. She had fallen out of her wheelchair and was having severe right knee pain as well as some mild hip pain patient was found to have a displaced oblique fracture of the distal metaphysis of the femur. A pelvic x-ray revealed satisfactory appearance of the hip prosthesis. Hospital Course Hospital Course Consult was placed to Dr. Taylor from orthopedics. And was for ORIF in the morning. In usual treatment with pain medication and then physical therapy postoperatively. Patient was found to have a urinary tract infection and was treated with appropriate antibiotics. Patient grew E. coli that was sensitive to all but ampicillin and and Bactrim. Patient had a 5-day course of antibiotic. On 09/27/2021 patient had a 2 g drop of hemoglobin. She was transfused 1 unit of blood. However prior to full unit patient patient had sudden onset of shortness of breath. Diagnosis was flash pulmonary edema and she was given Lasix with good results. Patient's hemoglobin stabilized with a doug of 7.6 on the 18th later in the day 7.7. And this morning at 7.8. I believe the postop bleeding has tamponaded patient is stable. She is asymptomatic. Patient has had paroxysmal atrial fibrillation with RVR post operatively. When her heart rate is controlled with Cardizem she reverts back to his normal sinus rhythm. She will be discharged on Cardizem 30 every 6 hours and dosing can be adjusted. Also taking digoxin for rate control. Patient is obese, wheelchair-bound status post hip replacement. With a history of heart failure diabetes hyperlipidemia who suffered a femur fracture. This was complicated by postop blood loss and stabilized after 1 unit of blood. Also complicated by atrial fibrillation with rapid ventricular rate that is now controlled with medications. Physical Exam Narrative: Patient is alert and oriented no acute distress. Obese. She is smiling. Asking to go home. Her color looks better today. Heart: Regular normal S1-S2 without murmurs clicks gallops or rubs when I saw her this morning. Note she later went back into A. fib with RVR. When she receives the metoprolol she returns to normal sinus rhythm. lungs: Clear to auscultation without wheezes rales or rhonchi Abdomen: Obese soft nontender nondistended positive bowel sounds Extremities: Left leg without edema. Due to the acute blood loss anemia the compression dressing was unwrapped on the right surgical leg. There was significant edema on this right leg up to groin. The edema was also concentrated just above the compression dressing. There is some mild oozing from the middle part of the incision. Urinary Catheter Management: Davila: Cath Placed During This Visit: yes, but has since been removed by the nurse Reason for Continuing Indwelling Catheter: Required Immobilization for Trauma or Surgery or Anesthesia Urinary Catheter Date of Insertion: 09/23/21 Urinary Catheter Time of Insertion: 10:00 Date Urinary Catheter Removed: 09/22/21 Time Urinary Catheter Discontinued: 08:00 Discharge Data Studies Completed and Pending Completed Studies During Hospitalization Category Date Time Status CXRP [XR chest 1V portable [id number]] Urgent Exams 09/24/21 10:32 Completed XR chest 1V portable [id number] Stat Exams 09/23/21 08:18 Completed XR femur RT 1V [id number] Routine Exams 09/24/21 10:31 Completed XR femur RT min 2V* [id number] Routine Exams 09/24/21 Completed XR hip RT 2-3V wo/w pel* [id number] Stat Exams 09/23/21 07:41 Completed XR knee RT 3V* [id number] Stat Exams 09/23/21 07:38 Completed CV. echo complete* [id number] Routine Ultrasound 09/23/21 11:28 Completed Pending at discharge Category Date Time Status Blood Culture Stat Lab 09/24/21 16:55 Results Radiology Impressions Knee X-Ray 09/23/21 07:38 IMPRESSION: Displaced oblique fracture of the distal metaphysis of the femur. Hip/Pelvis X-Ray 09/23/21 07:41 IMPRESSION: Satisfactory appearance of the hip prosthesis. No acute abnormality. Femur X-Ray 09/24/21 10:31 IMPRESSION: 1. Oblique displaced fracture distal shaft of the right femur status post ORIF 2. Metallic right hip arthroplasty in good position 3. Metallic right knee replacement in good position. 4. Metallic ann lateral right leg soft tissue Chest X-Ray 09/24/21 10:32 IMPRESSION: No acute findings. Laboratory Results WBC 7.2 10^3/uL (4.0-10.0) 09/29/21 08:36 RBC 2.47 10^6/uL (4.1-5.3) L 09/29/21 08:36 Hgb 7.8 g/dL (11.5-15.3) L 09/29/21 08:36 Hct 24.7 % (37.0-47.0) L 09/29/21 08:36 MCV 100.0 fl (81-99) H 09/29/21 08:36 MCH 31.6 pg (28.0-34.0) 09/29/21 08:36 MCHC 31.6 g/dL (30.0-36.0) 09/29/21 08:36 RDW 13.2 % (12.1-15.1) 09/29/21 08:36 Plt Count 225 10^3/cmm (130-400) 09/29/21 08:36 MPV 10.5 fL (7.4-10.4) H 09/29/21 08:36 Neut % (Auto) 54.3 % 09/29/21 08:36 Lymph % (Auto) 31.6 % 09/29/21 08:36 [place] % (Auto) 8.5 % 09/29/21 08:36 Eos % (Auto) 4.6 % 09/29/21 08:36 Baso % (Auto) 0.6 % 09/29/21 08:36 Neut # (Auto) 3.88 10^3/uL (1.8-7.7) 09/29/21 08:36 Lymph # (Auto) 2.3 10^3/uL (0.8-4.8) 09/29/21 08:36 [place] # (Auto) 0.6 10^3/uL (0.2-0.9) 09/29/21 08:36 Eos # (Auto) 0.3 10^3/uL (0.0-0.8) 09/29/21 08:36 Baso # (Auto) 0.0 10^3/uL (0.0-0.1) 09/29/21 08:36 Nucleated RBC % (auto) 0 % 09/29/21 08:36 Nucleated RBCs # 0.0 /100WBC 09/29/21 08:36 PT 14.60 SECONDS (12.1-14.9) 09/23/21 08:30 INR 1.11 (0.8-1.2) 09/23/21 08:30 Sodium 136 mmol/L (136-145) 09/27/21 02:25 Potassium 3.6 mmol/L (3.5-5.1) 09/27/21 02:25 Chloride 104 mmol/L (98-107) 09/27/21 02:25 Carbon Dioxide 22 mmol/L (22-29) 09/27/21 02:25 Anion Gap 13.6 (5-19) 09/27/21 02:25 BUN 16 mg/dL (8-23) 09/27/21 02:25 Creatinine 1.2 mg/dL (0.5-0.9) H 09/27/21 02:25 GFR Calculation Not Reportable 09/27/21 02:25 Glucose 133 mg/dL (65-115) H 09/27/21 02:25 POC Glucose 142 mg/dL (70-110) H 09/29/21 06:15 Estimat Average Glucose 94 09/24/21 05:15 Hemoglobin A1c 4.9 % (4.0-6.0) 09/24/21 05:15 Calculated Osmolality 285 mOsm/kg (285-295) 09/27/21 02:25 Calcium 8.1 mg/dL (8.5-10.5) L 09/27/21 02:25 Phosphorus 2.7 mg/dL (2.5-4.5) 09/27/21 02:25 Magnesium 1.7 mg/dL (1.7-2.3) 09/27/21 02:25 Iron 51 ug/dL (37-145) 09/23/21 08:30 TIBC 230 mcg/dl 09/23/21 08:30 % Saturation 22.1 % (20-50) 09/23/21 08:30 Unsat Iron Binding 179 ug/dL (112-347) 09/23/21 08:30 Total Bilirubin 0.4 mg/dL (0.15-1.2) 09/27/21 02:25 AST 31 U/L (0-32) 09/27/21 02:25 ALT 12 U/L (0-33) 09/27/21 02:25 Alkaline Phosphatase 79 U/L (35-105) 09/27/21 02:25 Troponin T Baseline 18 ng/L (0-10) H 09/27/21 02:25 Troponin T 120 Minute 20.65 ng/L (0-10) H 09/27/21 04:26 Delta Troponin T 2.65 ABS# (0-10) 09/27/21 04:26 Troponin T Hi Sens 6Hr 21.28 ng/L (0-10) H 09/27/21 08:16 Troponin T Hi Sens 6Hr Delta 3.28 ng/L (0-12) 09/27/21 08:16 Total Protein 5.1 g/dL (6.6-8.7) L 09/27/21 02:25 Albumin 2.7 g/dL (3.5-5.2) L 09/27/21 02:25 Globulin 2.4 g/dL (1.3-4.6) 09/27/21 02:25 Triglycerides 63 mg/dL (0-150) 09/24/21 05:15 Cholesterol 120 mg/dL (0-200) 09/24/21 05:15 LDL Cholesterol, Calc 58 mg/dL (50-129) 09/24/21 05:15 Total VLDL Cholesterol 13 mg/dL (0-30) 09/24/21 05:15 HDL Cholesterol 49 mg/dL (60-100) L 09/24/21 05:15 Cholesterol/HDL Ratio 2.45 mg/dL (0.0-4.40) 09/24/21 05:15 Vitamin B12 231 pg/mL (232-1245) L 09/23/21 08:30 Folate 7.7 ng/mL (4.8-37.3) 09/23/21 08:30 Procalcitonin 0.13 ng/mL (0-0.5) 09/24/21 05:15 TSH 3.91 uIU/mL (0.27-4.20) 09/23/21 08:30 Urine Color Yellow (Yellow) 09/23/21 10:28 Urine Appearance Cloudy (CLEAR) 09/23/21 10:28 Urine pH 5 (5-7) 09/23/21 10:28 Ur Specific [place] 1.020 (1.005-1.030) 09/23/21 10:28 Urine Protein Neg (Negative) 09/23/21 10:28 Urine Glucose (UA) Norm (Normal) 09/23/21 10:28 Urine Ketones Negative (Negative) 09/23/21 10:28 Urine Blood 2+ (Negative) H 09/23/21 10:28 Urine Nitrate Negative (Negative) 09/23/21 10:28 Urine Bilirubin Neg (Negative) 09/23/21 10:28 Urine Urobilinogen Norm mg/dL (Negative) 09/23/21 10:28 Ur Leukocyte Esterase 1+ (Negative) H 09/23/21 10:28 Urine RBC None /hpf (0-2) 09/23/21 10:28 Urine WBC 25-40 /hpf (0-5) H 09/23/21 10:28 Ur Squamous Epith Cells Rare /hpf (0-5) 09/23/21 10:28 Amorphous Sediment Not Reportable 09/23/21 10:28 Urine Bacteria 4+ /hpf (NONE) H 09/23/21 10:28 Ur Random Sodium 124 mmol/L 09/23/21 10:28 Ur Random Potassium 44 mmol/L 09/23/21 10:28 Ur Random Chloride 132 mmol/L 09/23/21 10:28 Random Vancomycin 10.9 ug/mL (20.0-40.0) L 09/25/21 02:18 Blood Type O Positive 09/27/21 07:00 Rho(D) Type Positive 09/27/21 07:00 Antibody Screen Negative 09/27/21 07:00 Crossmatch See Detail 09/27/21 07:00 Procedures Performed ORIF right leg Vitals Last Vital Signs Temp 98.1 F 09/29/21 07:38 Pulse 82 09/29/21 08:08 Resp 16 09/29/21 07:58 BP 109/65 09/29/21 07:38 Pulse Ox 100 09/29/21 07:58 O2 Del Method 09/29/21 07:58 O2 Flow Rate 2 09/29/21 07:58 Discharge Plan Discharge Patient Disposition: Xfer SNF Condition: Stable Prescriptions: New hydrocodone-acetaminophen 5-325 mg Tablet 1 - 2 tab PO Q4H PRN (Reason: Breakthrough Pain) Qty: 60 0RF levalbuterol HCl 0.63 mg/3 mL Solution For Nebulization 0.63 mg inhalation Q4H.RESPIRATORY PRN (Reason: Shortness Of Breath) Qty: 1 0RF docusate sodium 100 mg Capsule 100 mg PO BID Qty: 30 0RF insulin lispro [Humalog U-100 Insulin] 100 unit/mL Solution 0 unit SUBCUT WM&BEDTIME Qty: 1 0RF magnesium hydroxide [Milk of Magnesia] 400 mg/5 mL Suspension 30 ml PO DAILY PRN (Reason: Constipation (see protocol)) Qty: 30 0RF Eliquis 5 mg Tablet 5 mg PO BID@0900,2100 Qty: 60 0RF ondansetron HCl (PF) 4 mg/2 mL Solution 4 mg IVP Q8H PRN (Reason: vomiting, or N/V if npo) Qty: 1 0RF cyanocobalamin (vitamin B-12) [Vitamin B-12] 1,000 mcg Tablet 500 mcg PO DAILY Qty: 30 0RF sucralfate 1 gram Tablet 1 g PO AC&BEDTIME Qty: 1 0RF diltiazem HCl 30 mg Tablet 30 mg PO Q6H Qty: 120 0RF bupropion HCl 75 mg tablet 75 mg PO DAILY Qty: 30 0RF Continued aspirin [Adult Low Dose Aspirin] 81 mg tablet,delayed release (DR/EC) 81 mg PO DAILY calcium carbonate 500 mg calcium (1,250 mg) tablet 500 mg PO BID dicyclomine 20 mg tablet 20 mg PO QID pantoprazole 40 mg tablet,delayed release (DR/EC) 40 mg PO DAILY ropinirole 0.5 mg tablet 0.5 mg PO DAILY simvastatin 40 mg tablet 40 mg PO DAILY Spiriva with HandiHaler 18 mcg capsule, w/inhalation device 1 cap INHALATION DAILY tizanidine 4 mg capsule 4 mg PO Q8H PRN (Reason: Muscle Pain) topiramate [Topamax] 100 mg tablet 100 mg PO BID tramadol 50 mg tablet 50 mg PO Q8H PRN (Reason: Pain) albuterol sulfate [Ventolin HFA] 90 mcg/actuation HFA aerosol inhaler 2 puff INHALATION Q6H PRN (Reason: Shortness Of Breath) gabapentin 600 mg tablet 600 mg PO BID cholecalciferol (vitamin D3) 50 mcg (2,000 unit) capsule 50 mcg PO DAILY buspirone 5 mg tablet 5 mg PO TID hydroxyzine HCl 10 mg tablet 10 mg PO TID PRN (Reason: Itching) dulaglutide 0.75 mg/0.5 mL pen injector 0.75 mg SUBCUT Q7D Rx Instructions: ON MONDAYS Breo Ellipta 100-25 mcg/dose blister with device 1 inh inhalation DAILY bupropion HCl 150 mg tablet extended release 24 hr 150 mg PO DAILY Discharge Orders: Discharge Order (Routine); Ordered 09/29/21 Ordered By: Jose G Price Referrals: Jennie Birmingham [Primary Care Provider] - Discharge Diet: Diabetic Discharge Activity: Limit activity as instructed Activity Restrictions/Additional Instructions: You are being discharged from the hospital today during which time you have been under the care of Dr Ortega. You had a Right Leg fracture. You were treated for this injury with a Right Femur Plate for stabilization of your right leg fracture. You may resume you normal diet (including any special diets as directed by your primary doctor) as well as your home medications. You should follow up with you primary doctor if you have any questions regarding medication you took prior to your stay in the hospital. You may take your pain medication as prescribed. After the first few days, take your pain medication as needed. Do not drive or drink alcohol while taking your pain medication. Your injury may increase your risk of developing a blood clot,or DVT, in your arm or leg. This could potentially dislodge and travel to your lungs and become a life threatening condition called a pulmonary embolus,or PE. You have been prescribed eliquis to be taken to prevent this. Frequent movement of the legs will also help prevent this from occurring. If you develop any new or worsening cough, chestpain, bloody sputum or shortness of breath, call 911 or go to the EmergencyRoom. Always keep your surgical incision/dressing clean and dry. If you experience increasing pain at your incision site, redness, swelling, increasing discharge, foul odors, or fevers (greater than 100.4), night sweats or chills you should call the office at the above number. If you feel this is an emergency you should be evaluated in the Emergency Department of a nearby hospital. Orthopedic Patient Instructions Summary: Weight Bearing:NWB RLE Activity: Work with transfer to wheelchair, ice and elevate right lower extremity twice to 3 times a day, diet: regular. Wound Care: Keep dressing clean and dry. Change as needed Anticoagulation: Lovenox Pain Medication: Take only as needed. Ice, rest and elevation will be of great benefit. Please plan to follow-up wlwon Ortega in 2 weeks. You will need to call the clinic [phone] to schedule. Do not hesitate to call the office with any questions or concerns. Discharge Attestations Time Spent in Discharge Care*: greater than 30 min Quality Metrics Clinical Quality Measures [ No reported AMI, CVA or VTE this stay] Coding Level of Care Code Acute [facility] [place] note Diagnoses Femoral distal fracture S72.401A Encounter type: initial encounter Fracture morphology: unspecified fracture morphology Fracture type: closed Laterality: right Heart failure I50.9 Heart failure type: diastolic Acute kidney injury N17.9 Anemia D64.9 Fall W19.XXXA Urinary tract infection N39.0 Acute blood loss as cause of postoperative anemia D62 Hematoma of right lower extremity S80.11XA Atrial fibrillation with RVR I48.91
[2021-09-29 11:10] LABS: Glucose Point of Care 106 mg/dL (70-110)
== END 2021-09-29 14:58 | disposition swing bed (61) | DRG 480 ==
LOC: ER 08:28 → MEDSURG 10:00
PROVIDERS: Family Medicine; Orthopaedic Surgery; Admitting Provider Student in an Organized Health Care Education/Training Program; Emergency Provider Emergency Medicine; PCP Nurse Practitioner Family; Visit Provider Internal Medicine
PROC: 0QSB04Z Reposition Right Lower Femur with Internal Fixation Device, Open Approach (ICD-10-PCS; principal; 2021-09-24 08:00)
DX: S72.491A Other fracture of lower end of right femur, initial encounter for closed fracture (principal); I50.33 Acute on chronic diastolic (congestive) heart failure; I13.0 Hypertensive heart and chronic kidney disease with heart failure and stage 1 through stage 4 chronic kidney disease, or unspecified chronic kidney disease; N17.9 Acute kidney failure, unspecified; D62 Acute posthemorrhagic anemia; N39.0 Urinary tract infection, site not specified; W05.0XXA Fall from non-moving wheelchair, initial encounter; N18.30 Chronic kidney disease, stage 3 unspecified; E11.22 Type 2 diabetes mellitus with diabetic chronic kidney disease; T80.89XA Other complications following infusion, transfusion and therapeutic injection, initial encounter; E78.5 Hyperlipidemia, unspecified; E66.01 Morbid (severe) obesity due to excess calories; Z68.37 Body mass index [BMI] 37.0-37.9, adult; J44.9 Chronic obstructive pulmonary disease, unspecified; Z99.3 Dependence on wheelchair; G25.0 Essential tremor; M79.7 Fibromyalgia; Z96.641 Presence of right artificial hip joint; Z96.651 Presence of right artificial knee joint; F17.200 Nicotine dependence, unspecified, uncomplicated; E86.0 Dehydration; D63.1 Anemia in chronic kidney disease; D51.9 Vitamin B12 deficiency anemia, unspecified; Z79.51 Long term (current) use of inhaled steroids; Z79.82 Long term (current) use of aspirin; I48.91 Unspecified atrial fibrillation; B96.20 Unspecified Escherichia coli [E. coli] as the cause of diseases classified elsewhere; T17.918A Gastric contents in respiratory tract, part unspecified causing other injury, initial encounter; X58.XXXA Exposure to other specified factors, initial encounter; Y92.234 Operating room of hospital as the place of occurrence of the external cause; Z87.440 Personal history of urinary (tract) infections; S80.11XA Contusion of right lower leg, initial encounter
CPT/HCPCS: 36415; 36416; 36430; 51702; 71045; 73502; 73551; 73552; 73562; 76000; 80053; 80061; 80202; 81001; 82436; 82607; 82746; 82962; 83036; 83540; 83550; 83735; 84100; 84133; 84145; 84300; 84443; 84484; 85014; 85018; 85025; 85610; 86403; 86850; 86900; 86920; 87040; 87077; 87086; 87186; 87449; 87641; 93005; 93306; 94640; 96372; 96374; 96375; 97110; 97161; 97165; 97530; 97535; 97760; 99285; C1713; C9113; J0696; J1100; J1170; J1650; J1815; J1940; J2270; J2405; J2704; J2710; J3010; J3370; J3420; J3490; J7030; J7040; J7050; J7626; L1830; P9016; P9041

== ENCOUNTER → 2021-10-12 10:30 | Outpatient (BNVA) | payer MEDICARE, MEDICAID, SELFPAY | PROVIDERS: PCP Nurse Practitioner Family; Visit Provider Orthopaedic Surgery | DX: S72.409D Unspecified fracture of lower end of unspecified femur, subsequent encounter for closed fracture with routine healing (principal); M97.01XD Periprosthetic fracture around internal prosthetic right hip joint, subsequent encounter | CPT/HCPCS: 99024 ==

== ENCOUNTER → 2021-10-19 08:53 | Outpatient (BNVA) | payer MEDICARE, MEDICAID, SELFPAY | PROVIDERS: PCP Nurse Practitioner Family; Visit Provider Physician Assistant | DX: S72.91XD Unspecified fracture of right femur, subsequent encounter for closed fracture with routine healing (principal); M97.01XD Periprosthetic fracture around internal prosthetic right hip joint, subsequent encounter; X58.XXXD Exposure to other specified factors, subsequent encounter | CPT/HCPCS: 99024 ==

== ENCOUNTER → 2021-10-26 09:29 | Outpatient (BNVA) | payer MEDICARE, MEDICAID, SELFPAY | PROVIDERS: PCP Nurse Practitioner Family; Visit Provider Physician Assistant | DX: S72.491D Other fracture of lower end of right femur, subsequent encounter for closed fracture with routine healing (principal); X58.XXXD Exposure to other specified factors, subsequent encounter | CPT/HCPCS: 73552; 99024 ==

== ENCOUNTER 2021-11-03 15:52 | Emergency (ER) | payer MEDICARE, MEDICAID, SELFPAY ==
[2021-11-03 15:56] VITALS: BP 160/86; PULSE 157; RESP 24; TEMP 37.1; O2SAT 96; BMI 26.4
--- NOTE | 2021-11-03 15:56 | W.ED.SEIZURE ---
HPI - Seizure General: Chief Complaint: Seizure Stated Complaint: SEIZURE/ NAUSEA Time Seen by Provider: 11/03/21 15:55 Limitations: altered mental status History of Present Illness: HPI Narrative: Ms Cedeno is a 75-year-old lady with history of headaches, hypertension, hyperlipidemia, diabetes who presents to the emergency department due to somewhat unclear reason. Apparently patient is residing at a rehab after hip surgery and per EMS report they were called that patient had nausea and was seizing though this apparently happened for about 20 to 30 minutes. Upon my assessment of patient she is not postictal but is somewhat unclear of the events of today. History is somewhat limited by mental status. Denies any new focal neurologic symptoms. Per clarification from nursing report the patient has been having nausea and vomiting specifically during PT/OT after eating. She was given Zofran and subsequently had these abnormal shaking spells. Perhaps has a history of psychogenic episodes though this is somewhat unclear. 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 Conversion disorder with seizures or convulsions COPD (chronic obstructive pulmonary disease) Diabetes Dizziness and giddiness Essential tremor Fall Femoral distal fracture Fibromyalgia Functional neurological symptom disorder with attacks or seizures Heart failure Hematoma of right lower extremity Hyperlipidemia Hypertension Urinary tract infection Surgical History History of appendectomy History of History of cholecystectomy History of hip replacement History of hysterectomy History of knee replacement Family History Mother CAD (coronary artery disease) Diabetes Social History Smoking and tobacco status: current every day smoker Alcohol intake: current Alcohol intake frequency: other History of recent travel: No Physical Exam Const: COMMON NORMALS: patient oriented x3 and alert GENERAL APPEARANCE: cooperative and well developed HENMT: COMMON NORMALS: normocephalic and atraumatic HEAD & SCALP: normocephalic and atraumatic Eye: COMMON NORMALS: conjunctivae normal CONJUNCTIVA: Yes conjunctivae normal SCLERA: sclerae normal Neck/C-Spine: COMMON NORMALS: supple GENERAL: Yes trachea midline Resp: COMMON NORMALS: normal respiratory effort EFFORT & INSPECTION: Yes able to speak in complete sentences Cardio: COMMON NORMALS: regular rate and regular rhythm RATE: regular rate RHYTHM: regular rhythm GI: COMMON NORMALS: Soft to palpation PALPATION: Yes Soft to palpation and No Tenderness to palpation present (GI) PERCUSSION: normal to percussion Extremity: GENERAL: Yes normal exam except as noted and No edema Neuro: COMMON NORMALS: patient oriented x3, CN's II-XII intact bilaterally, moves all extremities, no focal motor deficits and no sensory deficits noted SENSORIUM/ORIENTATION: Yes alert and No Orientation impaired Psych: MEMORY/COGNITION: Yes memory grossly impaired Course Vital Signs: Vital signs: Vital Signs Temperature 98.7 F 11/03/21 22:05 Pulse Rate 98 11/03/21 22:05 Respiratory Rate 18 11/03/21 22:05 Blood Pressure 161/79 11/03/21 22:05 Pulse Oximetry 97 11/03/21 22:05 Oxygen Delivery Me thod 11/03/21 21:28 MDM - Seizure MDM Narrative Medical decision making narrative: 75-year-old lady presenting to the ER for somewhat unclear reason, perhaps visualized body jerking though this was prolonged and less consistent with seizure. Head to toe exam performed. Minimal leukocytosis, normal hemoglobin. Metabolic end without acute pathology to explain symptoms. Delta troponin negative. No UTI. EKG without evidence of STEMI. Chest x-ray with no lobar consolidation or pneumothorax. CT imaging without clear traumatic injury from today's events. Incidental findings discussed. Patient feels improved with treatment and is satisfactory for return to [facility] with no indication for hospitalization at this time. Medical Records Attestation: I reviewed the patient's medical records. Lab Data Attestation: I reviewed the patient's lab results. Result diagrams: 11/03/21 16:06 11/03/21 16:06 Labs: Radiology Impressions Cervical Spine CT 11/03/21 16:08 IMPRESSION: No acute findings. Chest X-Ray 11/03/21 16:08 IMPRESSION: No acute findings. Head CT 11/03/21 16:08 IMPRESSION: No acute intracranial abnormality. Chest/Abdomen/Pelvis CT 11/03/21 17:07 IMPRESSION: 1. Cardiomegaly. 2. Bibasilar atelectasis versus infiltrate. 3. T8 and T12 vertebral body compression fractures without retropulsion of bony fragments, age indeterminate. IMPRESSION: 1. Negative for acute traumatic injury to the abdomen or pelvis. 2. Cholecystectomy. 3. Bilateral renal cysts, negative for follow up. 4. Right kidney nonobstructing renal calyceal stone. 5. Constipation. 6. Small hiatal hernia. 7. Bilateral punctate nonobstructing renal calyceal stones. COMMENTS: Consistent with the [employer]'s Incidental Findings Committee white paper (J Am Mae Radiol 2018): Any incidental renal lesion less than 1 cm or classified as too small to characterize, or any incidental cystic renal lesion characterized as simple-appearing, is likely benign. No follow-up imaging is recommended for these lesions per consensus recommendations based on imaging criteria. Laboratory Results WBC 10.7 10^3/uL (4.0-10.0) H 11/03/21 16:06 RBC 4.10 10^6/uL (4.1-5.3) 11/03/21 16:06 Hgb 13.1 g/dL (11.5-15.3) 11/03/21 16:06 Hct 41.3 % (37.0-47.0) 11/03/21 16:06 MCV 100.7 fl (81-99) H 11/03/21 16:06 MCH 32.0 pg (28.0-34.0) 11/03/21 16:06 MCHC 31.7 g/dL (30.0-36.0) 11/03/21 16:06 RDW 13.4 % (12.1-15.1) 11/03/21 16:06 Plt Count 184 10^3/cmm (130-400) 11/03/21 16:06 MPV 12.6 fL (7.4-10.4) H 11/03/21 16:06 Neut % (Auto) 78.4 % 11/03/21 16:06 Lymph % (Auto) 12.5 % 11/03/21 16:06 [place] % (Auto) 7.0 % 11/03/21 16:06 Eos % (Auto) 1.4 % 11/03/21 16:06 Baso % (Auto) 0.4 % 11/03/21 16:06 Neut # (Auto) 8.39 10^3/uL (1.8-7.7) H 11/03/21 16:06 Lymph # (Auto) 1.3 10^3/uL (0.8-4.8) 11/03/21 16:06 [place] # (Auto) 0.8 10^3/uL (0.2-0.9) 11/03/21 16:06 Eos # (Auto) 0.2 10^3/uL (0.0-0.8) 11/03/21 16:06 Baso # (Auto) 0.0 10^3/uL (0.0-0.1) 11/03/21 16:06 Nucleated RBC % (auto) 0 % 11/03/21 16:06 Nucleated RBCs # 0.0 /100WBC 11/03/21 16:06 D-Dimer 1.23 ug/mIFEU (0-0.59) H 11/03/21 16:06 Sodium 137 mmol/L (136-145) 11/03/21 16:06 Potassium 3.8 mmol/L (3.5-5.1) 11/03/21 16:06 Chloride 100 mmol/L (98-107) 11/03/21 16:06 Carbon Dioxide 22 mmol/L (22-29) 11/03/21 16:06 Anion Gap 18.8 (5-19) 11/03/21 16:06 BUN 17 mg/dL (8-23) 11/03/21 16:06 Creatinine 1.2 mg/dL (0.5-0.9) H 11/03/21 16:06 GFR Calculation Not Reportable 11/03/21 16:06 Glucose 129 mg/dL (65-115) H 11/03/21 16:06 Calculated Osmolality 287 mOsm/kg (285-295) 11/03/21 16:06 Calcium 9.9 mg/dL (8.5-10.5) 11/03/21 16:06 Magnesium 1.9 mg/dL (1.7-2.3) 11/03/21 16:06 Total Bilirubin 0.4 mg/dL (0.15-1.2) 11/03/21 16:06 AST 11 U/L (0-32) 11/03/21 16:06 ALT 8 U/L (0-33) 11/03/21 16:06 Alkaline Phosphatase 123 U/L (35-105) H 11/03/21 16:06 Troponin T Baseline 47 ng/L (0-10) H 11/03/21 16:06 Troponin T 120 Minute 44.29 ng/L (0-10) H 11/03/21 18:28 Delta Troponin T -2.71 ABS# (0-10) L 11/03/21 18:28 NT-Pro-B Natriuret Pep 130 pg/mL (0-450) 11/03/21 16:06 Total Protein 7.8 g/dL (6.6-8.7) 11/03/21 16:06 Albumin 3.9 g/dL (3.5-5.2) 11/03/21 16:06 Globulin 3.9 g/dL (1.3-4.6) 11/03/21 16:06 TSH 1.89 uIU/mL (0.27-4.20) 11/03/21 16:06 Urine Color Yellow (Yellow) 11/03/21 17:26 Urine Appearance Clear (CLEAR) 11/03/21 17:26 Urine pH 7 (5-7) 11/03/21 17:26 Ur Specific Candor 1.010 (1.005-1.030) 11/03/21 17:26 Urine Protein Neg (Negative) 11/03/21 17:26 Urine Glucose (UA) Norm (Normal) 11/03/21 17:26 Urine Ketones Negative (Negative) 11/03/21 17:26 Urine Blood Neg (Negative) 11/03/21 17:26 Urine Nitrate Negative (Negative) 11/03/21 17:26 Urine Bilirubin Neg (Negative) 11/03/21 17:26 Urine Urobilinogen Neg mg/dL (Negative) 11/03/21 17:26 Ur Leukocyte Esterase Negative (Negative) 11/03/21 17:26 Discharge Plan Discharge Patient Disposition: Home Clinical Impression: Seizure-like activity, Atrial fibrillation Condition: Stable Prescriptions: New ondansetron 4 mg tablet,disintegrating 4 mg PO Q8H PRN (Reason: nausea and vomiting) Qty: 15 0RF No Action aspirin [Adult Low Dose Aspirin] 81 mg tablet,delayed release (DR/EC) 81 mg PO DAILY dicyclomine 20 mg tablet 10 mg PO QID pantoprazole 40 mg tablet,delayed release (DR/EC) 40 mg PO DAILY ropinirole 0.5 mg tablet 0.5 mg PO BEDTIME simvastatin 40 mg tablet 40 mg PO DAILY tizanidine 4 mg capsule 4 mg PO Q8H PRN (Reason: Muscle Pain) topiramate [Topamax] 100 mg tablet 100 mg PO BID tramadol 50 mg tablet 50 mg PO Q8H PRN (Reason: Pain) albuterol sulfate [Ventolin HFA] 90 mcg/actuation HFA aerosol inhaler 2 puff INHALATION Q6H PRN (Reason: Shortness Of Breath) gabapentin 600 mg tablet 600 mg PO BID buspirone 5 mg tablet 5 mg PO TID hydroxyzine HCl 10 mg tablet 10 mg PO TID PRN (Reason: Itching) dulaglutide 0.75 mg/0.5 mL pen injector 0.75 mg SUBCUT Q7D Rx Instructions: ON fridays Breo Ellipta 100-25 mcg/dose blister with device 1 inh inhalation DAILY bupropion HCl 150 mg tablet extended release 24 hr 150 mg PO DAILY Eliquis 5 mg Tablet 5 mg PO BID@0900,2100 Qty: 60 0RF levalbuterol HCl 0.63 mg/3 mL Solution For Nebulization 0.63 mg inhalation Q4H.RESPIRATORY PRN (Reason: Shortness Of Breath) Qty: 1 0RF docusate sodium 100 mg Capsule 100 mg PO BID Qty: 30 0RF diltiazem HCl 30 mg Tablet 30 mg PO Q6H Qty: 120 0RF Tylenol 325 mg Tablet 650 mg PO QID PRN (Reason: Fever) Miralax 17 gram Powder In Packet 17 g PO DAILY PRN (Reason: Constipation) folic acid 1 mg Tablet 1 mg PO DAILY lisinopril 5 mg Tablet 2.5 mg PO DAILY loratadine 10 mg Tablet 10 mg PO DAILY Acidophilus 500 million cell Tablet 500 mmu cells PO DAILY Os-Hakeem 500 + D3 500 mg-5 mcg (200 unit) Tablet 1 tab PO DAILY sucralfate 1 gram tablet 1 g PO BID ondansetron HCl (PF) 4 mg/2 mL solution 4 mg IVP Q6H PRN (Reason: Nausea And Vomiting) Discharge Orders: Discharge ED (Routine); Ordered 11/03/21 Ordered By: Marcin Bergeron Other Ambulatory Orders: ECG holter monitor 14 Days (Routine) Timeframe: 1 Week Facility: [facility] - Location: Radiology Ordered By: Marcin Bergeron Referrals: Jennie Birmingham [Primary Care Provider] - Discharge Diet: Usual diet Discharge Activity: Limit activity as instructed Patient Instructions: Recurrent Seizures in Adults (ED), Opioid Safety, Pain Management Activity Restrictions/Additional Instructions: Thank you for visiting the emergency department. You were seen and evaluated for seizure-like episode. The exact cause of your symptoms is unclear though may be related to underlying seizure disorder. You are found to have abnormal heart rhythm however this improved with treatment. Please continue your medication regimen. Return to the emergency department for any new neurologic symptoms or anything else that you are concerned about a feel needs emergency department evaluation. Coding Level of Care Code ED Elder Assistant for Milton Parry Exam Comprehensive
--- NOTE | 2021-11-03 16:08 | CTR_ITS ---
PROCEDURE INFORMATION: Exam: CT Cervical Spine Without Contrast Exam date and time: 11/03/2021 4:53 PM Age: 75 years old Clinical indication: Other: Syncope; Additional info: Syncope, AMS TECHNIQUE: Imaging protocol: Computed tomography of the cervical spine without contrast. Radiation optimization: All CT scans at this facility use at least one of these dose optimization techniques: automated exposure control; mA and/or kV adjustment per patient size (includes targeted exams where dose is matched to clinical indication); or iterative reconstruction. COMPARISON: CT cervical spin wo con* [id number] 06/06/2020 10:53 AM RADIATION DOSE METRICS: Total DLP (mGy-cm): 241.3 FINDINGS: Bones/joints: No acute fracture. Normal alignment. At least moderate central canal stenosis at C5-C6. Lungs: Lung apices are normal. Soft tissues: Unremarkable. CT/CT cervical spin wo con* [id number] IMPRESSION: No acute findings.
--- NOTE | 2021-11-03 16:08 | XRR_ITS ---
PROCEDURE INFORMATION: Exam: XR Chest Exam date and time: 11/03/2021 4:15 PM Age: 75 years old Clinical indication: Other: Afib rvr TECHNIQUE: Imaging protocol: Radiologic exam of the chest. Views: 1 view. COMPARISON: CR (CHEST, ) 09/24/2021 10:43 AM FINDINGS: Lungs: Unremarkable. No consolidation. Pleural spaces: Unremarkable. No pleural effusion. No pneumothorax. Heart/Mediastinum: Unremarkable. No cardiomegaly. Bones/joints: Rotator cuff anchors noted in both humeral heads. Visualized osseous structures are intact. XR/XR chest 1V portable [id number] IMPRESSION: No acute findings.
--- NOTE | 2021-11-03 16:08 | CTR_ITS ---
PROCEDURE INFORMATION: Exam: CT Head Without Contrast Exam date and time: 11/03/2021 4:53 PM Age: 75 years old Clinical indication: Syncope and collapse; Patient HX: Syncope/ams; Additional info: ? Seizure TECHNIQUE: Imaging protocol: Computed tomography of the head without contrast. Radiation optimization: All CT scans at this facility use at least one of these dose optimization techniques: automated exposure control; mA and/or kV adjustment per patient size (includes targeted exams where dose is matched to clinical indication); or iterative reconstruction. COMPARISON: CT head wo con* [id number] 06/06/2020 10:49 AM RADIATION DOSE METRICS: Total DLP (mGy-cm): 1254.5 FINDINGS: Brain: No hemorrhage. No edema. Moderate diffuse cerebral atrophy and mild sequela of chronic small vessel ischemic disease. No mass effect. Cerebral ventricles: No ventriculomegaly. Paranasal sinuses: Visualized sinuses are unremarkable. No fluid levels. Mastoid air cells: Visualized mastoid air cells are well aerated. Bones/joints: Unremarkable. No acute fracture. Soft tissues: Unremarkable. CT/CT head wo con* [id number] IMPRESSION: No acute intracranial abnormality.
--- NOTE | 2021-11-03 16:12 | ECG_ITS ---
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 Measurements Intervals [place] Rate: 167 P: FL: QRS: -3 QRSD: 91 T: 168 QT: 261 QTc: 435 Interpretive Statements POSSIBLE ATRIAL FLUTTER WITH RAPID VENTRICULAR RESPONSE ST DEVIATION AND MODERATE T-WAVE ABNORMALITY, CONSIDER LATERAL ISCHEMIA [-0.1+ mV T-WAVE IN I/aVL/V5/V6] CRITICAL TEST RESULT Compared to ECG 09/27/2021 05:44:57 Possible ischemia now present Sinus rhythm no longer present T-wave abnormality still present Electronically Signed On 11-04-2021 11:10:32 CDT by Jen Short M.D. [id number]
[2021-11-03 16:19] VITALS: BP 138/92; PULSE 155; RESP 20; O2SAT 100
[2021-11-03] MEDS: metoprolol tartrate 1 mg/1 mL SDV 5 mL 5 MG IVP (16:26)
[2021-11-03] MEDS: lactated ringers 1,000 ML 999 ML IV (16:26)
[2021-11-03 16:53] LABS: Basophils % 0.4 %; Eosinophils # 0.2 10^3/uL (0.0-0.8); Eosinophils % 1.4 %; Hematocrit 41.3 % (37.0-47.0); Hemoglobin 13.1 g/dL (11.5-15.3); Lymphocytes # 1.3 10^3/uL (0.8-4.8); Lymphocytes % 12.5 %; Mean Corpuscular HGB Conc 31.7 g/dL (30.0-36.0); Mean Corpuscular Volume 100.7 fl (81-99); Mean Platelet Volume 12.6 fL (7.4-10.4); Monocytes # 0.8 10^3/uL (0.2-0.9); Neutrophils # 8.39 10^3/uL (1.8-7.7); Neutrophils % 78.4 %; Nucleated Red Blood Cells % 0 %; Platelet Count 184 10^3/cmm (130-400); Red Cell Distribution Width 13.4 % (12.1-15.1); White Blood Count 10.7 10^3/uL (4.0-10.0)
[2021-11-03 17:05] LABS: D Dimer 1.23 ug/mIFEU (0-0.59)
--- NOTE | 2021-11-03 17:07 | CTR_ITS ---
PROCEDURE INFORMATION: Exam: CTA Chest With Contrast Exam date and time: 11/03/2021 5:57 PM Age: 75 years old Clinical indication: Other: Elevated ddimer; Additional info: Seizure, AMS, elevated ddimer TECHNIQUE: Imaging protocol: Computed tomographic angiography of the chest with contrast. 3D rendering (Not supervised by radiologist): MIP and/or 3D reconstructed images were created by the technologist. Radiation optimization: All CT scans at this facility use at least one of these dose optimization techniques: automated exposure control; mA and/or kV adjustment per patient size (includes targeted exams where dose is matched to clinical indication); or iterative reconstruction. Contrast material: OMNIPAQUE 350; Contrast volume: 95 ml; Contrast route: INTRAVENOUS (IV); COMPARISON: CR XR chest 1V portable [id number] 11/03/2021 4:15 PM RADIATION DOSE METRICS: Total DLP (mGy-cm): 1426.19 FINDINGS: Pulmonary arteries: Normal. No pulmonary emboli. Aorta: Unremarkable. No aortic aneurysm. No aortic dissection. Lungs: Bibasilar atelectasis versus infiltrate. Pleural spaces: Unremarkable. No pneumothorax. No pleural effusion. Heart: Cardiomegaly. Lymph nodes: Unremarkable. No enlarged lymph nodes. Bones/joints: T8 and T12 vertebral body compression fractures without retropulsion of bony fragments, age indeterminate. Soft tissues: Unremarkable. PROCEDURE INFORMATION: Exam: CT Abdomen And Pelvis With Contrast Exam date and time: 11/03/2021 5:57 PM Age: 75 years old Clinical indication: Other: Elevated ddimer; Additional info: Seizure, AMS, elevated ddimer TECHNIQUE: Imaging protocol: Computed tomography of the abdomen and pelvis with contrast. Radiation optimization: All CT scans at this facility use at least one of these dose optimization techniques: automated exposure control; mA and/or kV adjustment per patient size (includes targeted exams where dose is matched to clinical indication); or iterative reconstruction. Contrast material: OMNIPAQUE 350; Contrast volume: 95 ml; Contrast route: INTRAVENOUS (IV); COMPARISON: CR (PELVIS, ) 09/23/2021 8:02 AM RADIATION DOSE METRICS: Total DLP (mGy-cm): 1426.19 FINDINGS: Liver: Normal. No mass. Gallbladder and bile ducts: Cholecystectomy. Pancreas: Normal. No ductal dilation. Spleen: Normal. No splenomegaly. Adrenal glands: Normal. No mass. Kidneys and ureters: Bilateral renal cysts, negative for follow up. Right kidney nonobstructing renal calyceal stone. Bilateral punctate nonobstructing renal calyceal stones. Stomach and bowel: Constipation. Small hiatal hernia. Appendix: No evidence of appendicitis. Intraperitoneal space: Unremarkable. No free air. No significant fluid collection. Vasculature: Unremarkable. No abdominal aortic aneurysm. Lymph nodes: Unremarkable. No enlarged lymph nodes. Urinary bladder: Unremarkable as visualized. Reproductive: Unremarkable as visualized. Bones/joints: Unremarkable. No acute fracture. Soft tissues: Unremarkable. CT/CT angio chest w abd pel w con IMPRESSION: 1. Cardiomegaly. 2. Bibasilar atelectasis versus infiltrate. 3. T8 and T12 vertebral body compression fractures without retropulsion of bony fragments, age indeterminate. IMPRESSION: 1. Negative for acute traumatic injury to the abdomen or pelvis. 2. Cholecystectomy. 3. Bilateral renal cysts, negative for follow up. 4. Right kidney nonobstructing renal calyceal stone. 5. Constipation. 6. Small hiatal hernia. 7. Bilateral punctate nonobstructing renal calyceal stones. COMMENTS: Consistent with the [employer]'s Incidental Findings Committee white paper (J Am Mae Radiol 2018): Any incidental renal lesion less than 1 cm or classified as too small to characterize, or any incidental cystic renal lesion characterized as simple-appearing, is likely benign. No follow-up imaging is recommended for these lesions per consensus recommendations based on imaging criteria.
[2021-11-03 17:09] LABS: Troponin(5th) Baseline 47 ng/L (0-10)
[2021-11-03 17:19] VITALS: BP 127/80; PULSE 98; RESP 16; O2SAT 96
[2021-11-03 17:28] LABS: Alanine Aminotransferase 8 U/L (0-33); Albumin Level 3.9 g/dL (3.5-5.2); Alkaline Phosphatase 123 U/L (35-105); Anion Gap 18.8 (5-19); Aspartate Amino Transferase 11 U/L (0-32); Blood Urea Nitrogen 17 mg/dL (8-23); Calcium 9.9 mg/dL (8.5-10.5); Carbon Dioxide 22 mmol/L (22-29); Chloride 100 mmol/L (98-107); Globulin 3.9 g/dL (1.3-4.6); Glucose 129 mg/dL (65-115); Magnesium 1.9 mg/dL (1.7-2.3); NT Pro B Type Natriuretic Pept 130 pg/mL (0-450); Osmolality Calculated 287 mOsm/kg (285-295); Potassium 3.8 mmol/L (3.5-5.1); Sodium 137 mmol/L (136-145); Thyroid Stimulating Hormone 1.89 uIU/mL (0.27-4.20); Total Bilirubin 0.4 mg/dL (0.15-1.2); Total Protein 7.8 g/dL (6.6-8.7)
[2021-11-03 17:37] LABS: Add Urine Microscopic? NO
[2021-11-03 17:48] LABS: Bilirubin Urine Neg (Negative); Blood Urine Neg (Negative); Glucose Urine UA Norm (Normal); Ketones Urine Negative (Negative); Leukocyte Esterase Urine Negative (Negative); Nitrate Urine Negative (Negative); Protein Urine Neg (Negative); Urine Appearance Clear (CLEAR); Urine Color Yellow (Yellow); Urobilinogen Urine Neg (Negative); pH Urine 7 (5-7)
[2021-11-03] MEDS: iohexol 350 mg/mL 100 mL Btl IV (18:01)
[2021-11-03] MEDS: ondansetron 2 mg/ML SDV 2 mL 4 MG IVP ×2 (18:01→21:25)
[2021-11-03 18:08] LABS: Charge for UA Resulting for Rev
[2021-11-03 18:35] VITALS: PULSE 101; RESP 20; O2SAT 99
--- NOTE | 2021-11-03 18:35 | ECG_ITS ---
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 Measurements Intervals [place] Rate: 101 P: 7 ND: 149 QRS: 33 QRSD: 85 T: 21 QT: 331 QTc: 430 Interpretive Statements SINUS TACHYCARDIA MINIMAL ST DEPRESSION Compared to ECG 11/03/2021 16:12:29 ST (T wave) deviation now present Atrial flutter no longer present T-wave abnormality no longer present Possible ischemia no longer present Electronically Signed On 11-04-2021 11:17:34 CDT by Jen Short M.D. [id number]
[2021-11-03 18:52] LABS: Troponin 5 2HR 44.29 ng/L (0-10)
[2021-11-03 18:53] LABS: Troponin 5 2HR Delta -2.71 ABS# (0-10)
--- NOTE | 2021-11-03 19:03 | PC.NURSE ---
Report given to ESTELLA Tapia
[2021-11-03 21:28] VITALS: BP 160/87; PULSE 98; RESP 18; O2SAT 97
[2021-11-03] MEDS: haloperidol inj 5 mg/mL INJ 1 mL 2 MG IVP (21:55)
[2021-11-03 22:05] VITALS: BP 161/79; PULSE 98; RESP 18; TEMP 37.1; O2SAT 97
== END 2021-11-03 22:12 | disposition home or self-care (01) ==
PROVIDERS: Emergency Provider Emergency Medicine; PCP Nurse Practitioner Family
DX: R56.9 Unspecified convulsions (principal); I48.91 Unspecified atrial fibrillation; Z79.01 Long term (current) use of anticoagulants; Z79.82 Long term (current) use of aspirin; J44.9 Chronic obstructive pulmonary disease, unspecified; E11.9 Type 2 diabetes mellitus without complications; I10 Essential (primary) hypertension; E78.5 Hyperlipidemia, unspecified; F17.210 Nicotine dependence, cigarettes, uncomplicated
CPT/HCPCS: 36415; 70450; 71045; 71275; 72125; 74177; 80053; 81003; 83735; 83880; 84443; 84484; 85025; 85378; 87040; 93005; 96374; 96375; 96376; 99285; J1630; J2405; J3490; Q9967

== ENCOUNTER → 2021-12-12 14:03 | Outpatient (BNVA) | payer MEDICARE, MEDICAID, SELFPAY | PROVIDERS: PCP Nurse Practitioner Family; Visit Provider Orthopaedic Surgery | DX: S72.491D Other fracture of lower end of right femur, subsequent encounter for closed fracture with routine healing (principal); X58.XXXD Exposure to other specified factors, subsequent encounter | CPT/HCPCS: 73552; 99024 ==

== ENCOUNTER → 2022-02-27 09:27 | Outpatient (BNVA) | payer MEDICARE, MEDICAID, SELFPAY | PROVIDERS: PCP Nurse Practitioner Family; Visit Provider Orthopaedic Surgery | DX: M97.01XD Periprosthetic fracture around internal prosthetic right hip joint, subsequent encounter (principal) | CPT/HCPCS: 73552; 99214 ==

== ENCOUNTER 2022-07-22 12:48 | Emergency (ER) | payer MEDICARE, MEDICAID, SELFPAY ==
[2022-07-22] VITALS (13 sets, daily range): BP systolic 111–176; BP diastolic 57–107; PULSE 78–90; RESP 18–19; TEMP 36.5; O2SAT 95–100; BMI 29.0
--- NOTE | 2022-07-22 12:59 | XRR_ITS ---
PROCEDURE INFORMATION: Exam: XR Chest Exam date and time: 07/22/2022 1:03 PM Age: 76 years old Clinical indication: Chest wall pain; Additional info: Syncope TECHNIQUE: Imaging protocol: Radiologic exam of the chest. Views: 1 view. COMPARISON: CR XR chest 1V portable [id number] 11/03/2021 4:15 PM FINDINGS: Lungs: Unremarkable. No consolidation. Pleural spaces: Unremarkable. No pleural effusion. No pneumothorax. Heart/Mediastinum: Heart size not optimally evaluated with a single AP view of the chest. Possible cardiomegaly. Bones/joints: There are anchor screws in the humeral heads consistent with prior rotator cuff tendon repair.There are degenerative changes in the thoracic spine and across the acromioclavicular joints. XR/XR chest 1V portable [id number] IMPRESSION: Possible cardiomegaly.Heart size not optimally evaluated with a single AP view of the chest.
--- NOTE | 2022-07-22 13:00 | W.ED.SYNCOPE ---
HPI - Syncope General: Chief Complaint: Syncope Stated Complaint: SYNCOPE; CHEST PAIN Time Seen by Provider: 07/22/22 12:49 Source: patient and EMS Mode of arrival: EMS Limitations: no limitations History of Present Illness: This patient was brought to our emergency department by EMS from [facility] which is a long-term care facility. She apparently felt lightheaded while she was in the cafeteria earlier around lunchtime and then wanted to go back to her room. She made her way back to her room via her wheelchair and then got up to use the commode for urinating and apparently had to witnessed syncopal episodes were very brief and she returned to her baseline immediately. She did not suffer any seizure, fall etc. She states that she felt palpitations or irregular heartbeat earlier today. She denies any shortness of breath, fever, recent illness to include nausea vomiting diarrhea etc. Has no history of coronary disease that she is aware. Never had a heart attack or heart failure. She has had no blood in her stools or black tarry stools. She has been faithful to all her medications. She uses a wheelchair for mobility. She does complain of it and was noted by EMS of some left upper arm and left chest pain. She states it is worsened by movement or jostling around in the ambulance ride. Is no sustained chest pain. Context: after urination Injuries sustained associated with event: none Associated symptoms: Deny abdominal pain, fever(s), headache(s), nausea or vertigo Review of Systems Const: Denies: fever(s) or chills Eyes: Denies: change in vision ENMT: Denies: throat pain, odynophagia, nasal discharge or nasal congestion Card: Reports: palpitations, irregular heart rhythm and syncope Resp: Denies: productive cough or non-productive cough GI: Denies: abdominal pain, nausea, vomiting or diarrhea : Denies: flank pain, difficulty voiding, dysuria or urinary frequency Musc: Reports: extremity pain; Denies: back pain or extremity swelling Skin/Breast: Denies: rash Neuro: Denies: headache(s), numbness in extremities, frequent falls, vertigo or seizure-like activity [place]/Lymph: Denies: easy bruising or easy bleeding [facility] ED PFSH: Medical History Acute blood loss as cause of postoperative anemia 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 Conversion disorder with seizures or convulsions COPD (chronic obstructive pulmonary disease) Diabetes Dizziness and giddiness Essential tremor Fall Femoral distal fracture Fibromyalgia Functional neurological symptom disorder with attacks or seizures Heart failure Hematoma of right lower extremity Hyperlipidemia Hypertension Urinary tract infection Surgical History History of appendectomy History of History of cholecystectomy History of hip replacement History of hysterectomy History of knee replacement Family History Mother CAD (coronary artery disease) Diabetes Social History Smoking and tobacco status: current every day smoker Alcohol intake: current Alcohol intake frequency: other Substance/Drug Use: never Physical Exam Narrative: EXAM NARRATIVE: She is alert and interactive. Appears to be comfortable. There is questions appropriately. Const: COMMON NORMALS: no acute distress, patient oriented x3 and alert GENERAL APPEARANCE: cooperative and comfortable NUTRITIONAL APPEARANCE: obese HENMT: COMMON NORMALS: normocephalic, atraumatic, Normal nasal mucous membranes and turbinates present, moist oral mucous membranes and oropharynx normal HEAD & SCALP: normocephalic and atraumatic NOSE: Normal nasal mucous membranes and turbinates present Eye: COMMON NORMALS: Equal, round and reactive pupils present, EOMs intact bilaterally and conjunctivae normal CONJUNCTIVA: Yes conjunctivae normal PUPIL: Yes Equal, round and reactive pupils present Neck/C-Spine: COMMON NORMALS: full ROM, no lymphadenopathy, no JVD and No carotid bruits Chest: COMMONS NORMALS: normal inspection of the chest OTHER: Chest tenderness to palpation in the left anterior chest along the pectoralis muscle and its insertion at the shoulder no ecchymosis. No palpable crepitance or subcutaneous emphysema Resp: COMMON NORMALS: normal respiratory effort, No retractions, No use of accessory muscles and clear to auscultation bilaterally AUSCULTATION: clear to auscultation bilaterally Cardio: COMMON NORMALS: no JVD, regular rate, regular rhythm, No murmurs present (Cardio) and Peripheral pulses 2+ throughout RATE: regular rate RHYTHM: regular rhythm PERIPHERAL PULSES: Peripheral pulses 2+ throughout GI: COMMON NORMALS: Soft to palpation and non-tender PALPATION: Yes Soft to palpation : COMMON NORMALS: Yes no CVA tenderness BLADDER/KIDNEY EXAM: Yes no CVA tenderness Back/Pelvis: COMMON NORMALS: no CVA tenderness, thoracic and lumbar spine normal to inspection, no thoracic nor lumbar tenderness and thoraco-lumbar ROM normal Extremity: NARRATIVE EXTREMITY EXAM: She has subjective tenderness in the belly of the biceps muscle in the upper arm. There is no deformity. Range of motion at the shoulder elbow and wrist are normal both actively and passively. She has intact pulses and neurovascular intact normally. Neuro: COMMON NORMALS: patient oriented x3, moves all extremities, no focal motor deficits and no sensory deficits noted SENSORIUM/ORIENTATION: Yes alert CRANIAL NERVES: Yes CN normal except as noted Psych: COMMON NORMALS: mental status grossly normal Skin: COMMON NORMALS: no rashes or lesions noted, no wounds and turgor normal GENERAL SKIN EXAM: no rashes or lesions noted and turgor normal Course Reevaluation(s): Reevaluation #1: Patient is now complaining of different chest pain symptoms since she was initially. Initially she was complaining of soreness when she moved or when she was palpated. Now she states her chest pain is seemingly more continuous. Her initial EKG was reassuring however we will going proceed with biomarkers as well as a repeat EKG to ensure no ACS etc. at this time. Time: 14:54 Vital Signs: Vital signs: Vital Signs Temperature 97.7 F 07/22/22 12:53 Pulse Rate 90 07/22/22 16:30 Respiratory Rate 18 07/22/22 16:30 Blood Pressure 162/90 07/22/22 16:30 Pulse Oximetry 100 07/22/22 16:30 Oxygen Delivery Me thod Room Air 07/22/22 16:30 MDM - Syncope Medical Decision Making This patient was transported to the emergency department from [facility]. She had episode of lightheadedness and then followed by an episode of syncope during mixed urination. She was being aided by the staff at the [facility] and did not fall or injure herself during the syncopal episode. She did complain of some left shoulder and left arm pain upon arrival. This was reproducible on examination. There was no other findings on her clinical examination. Resting EKG did not reveal any evidence of arrhythmias nor did prolonged monitoring reveal any evidence of arrhythmias other than occasional atrial premature contraction. She had some turns about her chest pain and so serial troponins and EKGs were obtained which did not reveal any significant delta in her troponin that would be consistent with ACS or other myocardial injury at this time. She probably has a slight elevation of troponin due to her chronic atrial fibrillation. She remained stable at during her emergency department stay without any evidence of ongoing concerns such as anemia etc. that might of contributed to her her syncope. She is stable to be discharged to long-term care facility for continued monitoring and care and return evaluation as indicated. 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 Medical Records I reviewed the patient's medical records. Prior history of atrial fibrillation Lab Data I reviewed the patient's lab results. 07/22/22 13:09 07/22/22 13:09 Radiology Impressions Chest X-Ray 07/22/22 12:59 IMPRESSION: Possible cardiomegaly.Heart size not optimally evaluated with a single AP view of the chest. Laboratory Results WBC 5.3 10^3/uL (4.0-10.0) 07/22/22 13:09 RBC 4.07 10^6/uL (4.1-5.3) L 07/22/22 13:09 Hgb 11.9 g/dL (11.5-15.3) 07/22/22 13:09 Hct 38.3 % (37.0-47.0) 07/22/22 13:09 MCV 94.1 fl (81-99) 07/22/22 13:09 MCH 29.2 pg (28.0-34.0) 07/22/22 13:09 MCHC 31.1 g/dL (30.0-36.0) 07/22/22 13:09 RDW 13.7 % (12.1-15.1) 07/22/22 13:09 Plt Count 199 10^3/cmm (130-400) 07/22/22 13:09 MPV 10.9 fL (7.4-10.4) H 07/22/22 13:09 Neut % (Auto) 53.2 % 07/22/22 13:09 Lymph % (Auto) 33.8 % 07/22/22 13:09 [place] % (Auto) 8.5 % 07/22/22 13:09 Eos % (Auto) 3.4 % 07/22/22 13:09 Baso % (Auto) 0.9 % 07/22/22 13:09 Neut # (Auto) 2.80 10^3/uL (1.8-7.7) 07/22/22 13:09 Lymph # (Auto) 1.8 10^3/uL (0.8-4.8) 07/22/22 13:09 [place] # (Auto) 0.5 10^3/uL (0.2-0.9) 07/22/22 13:09 Eos # (Auto) 0.2 10^3/uL (0.0-0.8) 07/22/22 13:09 Baso # (Auto) 0.1 10^3/uL (0.0-0.1) 07/22/22 13:09 Nucleated RBC % (auto) 0 % 07/22/22 13:09 Nucleated RBCs # 0.0 /100WBC 07/22/22 13:09 Sodium 140 mmol/L (136-145) 07/22/22 13:09 Potassium 3.8 mmol/L (3.5-5.1) 07/22/22 13:09 Chloride 107 mmol/L (98-107) 07/22/22 13:09 Carbon Dioxide 24 mmol/L (22-29) 07/22/22 13:09 Anion Gap 12.8 (5-19) 07/22/22 13:09 BUN 21 mg/dL (8-23) 07/22/22 13:09 Creatinine 1.1 mg/dL (0.5-0.9) H 07/22/22 13:09 GFR Calculation Not Reportable 07/22/22 13:09 Glucose 106 mg/dL (65-115) 07/22/22 13:09 Calculated Osmolality 293 mOsm/kg (285-295) 07/22/22 13:09 Calcium 9.0 mg/dL (8.5-10.5) 07/22/22 13:09 Total Bilirubin 0.2 mg/dL (0.15-1.2) 07/22/22 13:09 AST 13 U/L (0-32) 07/22/22 13:09 ALT 10 U/L (0-33) 07/22/22 13:09 Alkaline Phosphatase 145 U/L (35-105) H 07/22/22 13:09 Troponin T Baseline 17 ng/L (0-10) H 07/22/22 13:09 Troponin T 120 Minute 16.23 ng/L (0-10) H 07/22/22 15:01 Delta Troponin T -0.77 ABS# (0-10) L 07/22/22 15:01 Total Protein 7.1 g/dL (6.6-8.7) 07/22/22 13:09 Albumin 3.9 g/dL (3.5-5.2) 07/22/22 13:09 Globulin 3.2 g/dL (1.3-4.6) 07/22/22 13:09 EKG Data EKG 1: I personally reviewed and interpreted this EKG as follows: Interpretation: Contemporaneous review of resting EKG reveals a ventricular rate of 78 bpm. RI interval is normal. QRS duration is normal. Corrected QT intervals normal. [place] are normal. Generally sinus rhythm she does have rare occasional atrial premature complexes noted. EKG 2: I personally reviewed and interpreted this EKG as follows: Interpretation: Second EKG this visit reveals a ventricular rate of 87 bpm. Normal intervals, normal axis. No acute ST-T wave changes noted and no change from prior tracing this visit. Discharge Plan Discharge Patient Disposition: LTCH w Plan Readm Clinical Impression: Syncope, History of atrial fibrillation, Chest wall pain Condition: Stable Prescriptions: No Action pantoprazole 40 mg tablet,delayed release (DR/EC) 40 mg PO DAILY@07 topiramate [Topamax] 100 mg tablet 100 mg PO BID@08,20 albuterol sulfate [Ventolin HFA] 90 mcg/actuation HFA aerosol inhaler 2 puff INHALATION Q6H PRN (Reason: Wheezing) gabapentin 600 mg tablet 600 mg PO BID@08,20 polyethylene glycol 3350 [Miralax] 17 gram Powder In Packet 17 g PO DAILY PRN (Reason: Constipation) loratadine 10 mg Tablet 10 mg PO DAILY@07 senna 8.6 mg Tablet 8.6 mg PO DAILY PRN (Reason: Constipation) albuterol sulfate 2.5 mg /3 mL (0.083 %) Solution For Nebulization 2.5 mg inhalation Q4H PRN (Reason: Shortness Of Breath) Zofran 4 mg Tablet 4 mg PO Q6H PRN (Reason: Nausea And Vomiting) acetaminophen-codeine 300-30 mg tablet 2 tab PO DAILY@07 acetaminophen-codeine 300-30 mg tablet 2 tab PO Q8H PRN (Reason: Pain) Tylenol 8 Hour 650 mg Tablet Extended Release 650 mg PO Q6H MDD 4000mg PRN (Reason: Pain) bupropion HCl 100 mg tablet 100 mg PO DAILY@07 Milk of Magnesia 400 mg/5 mL Suspension 30 ml PO DAILY PRN (Reason: Constipation) bisacodyl 10 mg Suppository 10 mg RI DAILY PRN (Reason: Constipation) Enema Disposable 19-7 gram/118 mL Enema 118 ml RI DAILY PRN (Reason: Constipation) Lactobacillus acidophilus Capsule 2 cap PO BID@08,20 Discharge Orders: Discharge ED (Routine); Ordered 07/22/22 Ordered By: Asher Garcia Referrals: Jennie Birmingham FNP [Primary Care Provider] - Discharge Diet: Usual diet Discharge Activity: Increase activity as tolerated, Use walker/crutches as instructed and Wheelchair as instructed Activity Restrictions/Additional Instructions: As we discussed while you are in the emergency department we do not have any evidence that you had a heart attack or other damage to your heart. You have a history of atrial fibrillation which sometimes can cause palpitations and chest discomfort. Sometimes it can go fast enough to cause you to pass out. Sometimes these episodes can occur during urination such as what likely happened to you today. We also think that when the staff was assisting you they may have strained your left chest as we find no evidence to suggest any heart related pains to your chest or other concerns at this time. We have placed a consultation in for you to see Dr. Crump in the next 2 weeks for reevaluation and consideration for repeat ambulatory monitoring. If it anytime you have recurrence of your symptoms return to the emergency department for reevaluation. 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
--- NOTE | 2022-07-22 13:07 | XR_ITS ---
WS: [id number] LEFT HUMERUS: 2 VIEW(S) TECHNIQUE: AP and lateral. HISTORY: pain left medial COMPARISON: None available. Osteopenia. Single anchor in the LEFT humeral head. No definite fractures are identified evaluation o f the LEFT shoulder is limited due to underexposure. There is no fracture in the humeral diaphysis. M ild AC joint arthritis. No soft tissue abnormality. XR/[place] [address] IMPRESSION: 1. No fracture in the humeral diaphysis. 2. If pain is at the elbow or shoulder recommend dedicated radiographs for mor e optimal positioning and technique.
[2022-07-22 13:16] LABS: Basophils # 0.1 10^3/uL (0.0-0.1); Basophils % 0.9 %; Eosinophils # 0.2 10^3/uL (0.0-0.8); Eosinophils % 3.4 %; Hematocrit 38.3 % (37.0-47.0); Hemoglobin 11.9 g/dL (11.5-15.3); Lymphocytes # 1.8 10^3/uL (0.8-4.8); Lymphocytes % 33.8 %; Mean Corpuscular HGB Conc 31.1 g/dL (30.0-36.0); Mean Corpuscular Hemoglobin 29.2 pg (28.0-34.0); Mean Corpuscular Volume 94.1 fl (81-99); Mean Platelet Volume 10.9 fL (7.4-10.4); Monocytes # 0.5 10^3/uL (0.2-0.9); Monocytes % 8.5 %; Neutrophils % 53.2 %; Nucleated Red Blood Cells % 0 %; Platelet Count 199 10^3/cmm (130-400); Red Blood Count 4.07 10^6/uL (4.1-5.3); Red Cell Distribution Width 13.7 % (12.1-15.1); White Blood Count 5.3 10^3/uL (4.0-10.0)
--- NOTE | 2022-07-22 13:16 | ECG_ITS ---
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 Measurements Intervals [place] Rate: 78 P: 35 WA: 152 QRS: 41 QRSD: 86 T: 22 QT: 377 QTc: 430 Interpretive Statements SINUS RHYTHM WITH OCCASIONAL ECTOPIC PREMATURE COMPLEXES NONSPECIFIC T-WAVE ABNORMALITY Compared to ECG 11/03/2021 18:35:58 T-wave abnormality now present Sinus tachycardia no longer present ST (T wave) deviation no longer present Electronically Signed On 07-23-2022 11:11:17 CDT by Jen Short M.D. [id number]
--- NOTE | 2022-07-22 13:19 | PC.NURSE ---
Pt hooked up to continuous bedside cardiac monitoring.
[2022-07-22 13:32] LABS: Alanine Aminotransferase 10 U/L (0-33); Albumin Level 3.9 g/dL (3.5-5.2); Alkaline Phosphatase 145 U/L (35-105); Anion Gap 12.8 (5-19); Aspartate Amino Transferase 13 U/L (0-32); Blood Urea Nitrogen 21 mg/dL (8-23); Carbon Dioxide 24 mmol/L (22-29); Chloride 107 mmol/L (98-107); Globulin 3.2 g/dL (1.3-4.6); Glucose 106 mg/dL (65-115); Osmolality Calculated 293 mOsm/kg (285-295); Potassium 3.8 mmol/L (3.5-5.1); Sodium 140 mmol/L (136-145); Total Bilirubin 0.2 mg/dL (0.15-1.2); Total Protein 7.1 g/dL (6.6-8.7)
[2022-07-22 13:45] LABS: Creatinine Clr Calc Pharmacy 46.1387
[2022-07-22] MEDS: morphine 4 mg/mL SDV 1 mL IVP (14:57)
[2022-07-22 15:24] LABS: Troponin(5th) Baseline 17 ng/L (0-10)
[2022-07-22 15:28] LABS: Troponin 5 2HR 16.23 ng/L (0-10); Troponin 5 2HR Delta -0.77 ABS# (0-10)
--- NOTE | 2022-07-22 15:40 | PC.PHAR ---
pt is from [facility]-ciro nurse from [facility] states will fax mar and tar-list that was sent had acetaminophen-codeine #3 as dced when called to ask what pt took today they said shes taking it so asked them to fax mar and tar
--- NOTE | 2022-07-22 16:54 | ECG_ITS ---
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 Measurements Intervals [place] Rate: 87 P: 56 NE: 156 QRS: 45 QRSD: 84 T: 44 QT: 374 QTc: 452 Interpretive Statements SINUS RHYTHM LOW QRS VOLTAGE IN PRECORDIAL LEADS [QRS DEFLECTION < 1.0 mV IN CHEST LEADS] Compared to ECG 07/22/2022 13:16:17 Low QRS voltage now present T-wave abnormality no longer present Electronically Signed On 07-23-2022 11:10:59 CDT by Jen Short M.D. [id number]
--- NOTE | 2022-07-23 10:22 | DCPLANNER ---
Addendum entered by Subha Clemons 09/14/22 09:59: Patient had a follow up appointment scheduled with heart care - patient did not attend appointment. Addendum entered by Subha Clemons 07/27/22 09:08: Patient has a follow up appointment scheduled for Saturday, September 10, 2022 at 3:[address] Short at [facility]. Addendum entered by Subha Clemons 07/24/22 09:34: manager managed backup services received the following message from the [facility] clinic regarding follow up appointment: Attempted to call pt Original Note: manager managed backup services had message to schedule a follow up appointment for patient with cardiology. manager managed backup services sent patients to the front office staff at [facility]. Patients information will be printed and reviewed. Clinic will call patient with appointment information.
== END 2022-07-22 21:48 ==
PROVIDERS: Emergency Provider Emergency Medicine; PCP Nurse Practitioner Family
DX: R55 Syncope and collapse (principal); R07.89 Other chest pain; M79.602 Pain in left arm; M25.512 Pain in left shoulder; I48.20 Chronic atrial fibrillation, unspecified
CPT/HCPCS: 36415; 71045; 73060; 80053; 84484; 85025; 93005; 96374; 99285; J2270

== ENCOUNTER → 2022-08-29 08:40 | Outpatient (BNVA) | payer MEDICARE, MEDICAID, SELFPAY | PROVIDERS: PCP Nurse Practitioner Family; Visit Provider Specialist | DX: G43.711 Chronic migraine without aura, intractable, with status migrainosus (principal); G24.3 Spasmodic torticollis | CPT/HCPCS: 99214 ==

== ENCOUNTER → 2022-10-11 13:57 | Outpatient (BNVA) | payer MEDICARE, MEDICAID, SELFPAY | PROVIDERS: PCP Nurse Practitioner Family; Visit Provider Internal Medicine Cardiovascular Disease | DX: R42 Dizziness and giddiness (principal); I11.0 Hypertensive heart disease with heart failure; I50.9 Heart failure, unspecified; E78.2 Mixed hyperlipidemia; G25.0 Essential tremor; E11.9 Type 2 diabetes mellitus without complications; F17.200 Nicotine dependence, unspecified, uncomplicated; Z79.84 Long term (current) use of oral hypoglycemic drugs | CPT/HCPCS: 99214 ==

== ENCOUNTER → 2022-11-29 09:06 | Outpatient (BNVA) | payer MEDICARE, MEDICAID, SELFPAY | PROVIDERS: PCP Nurse Practitioner Family; Visit Provider Specialist | DX: G24.3 Spasmodic torticollis (principal); G43.711 Chronic migraine without aura, intractable, with status migrainosus | CPT/HCPCS: 64616; J0585 ==

== ENCOUNTER → 2022-12-11 10:14 | Outpatient (BNVA) | payer MEDICARE, MEDICAID, SELFPAY | PROVIDERS: PCP Nurse Practitioner Family; Visit Provider Podiatrist Foot & Ankle Surgery | DX: B35.1 Tinea unguium (principal); I73.9 Peripheral vascular disease, unspecified | CPT/HCPCS: 11721; 99203 ==

== ENCOUNTER → 2023-01-10 12:58 | Outpatient (BNVA) | payer MEDICARE, MEDICAID, SELFPAY | PROVIDERS: PCP Nurse Practitioner Family; Visit Provider Specialist | DX: G43.711 Chronic migraine without aura, intractable, with status migrainosus (principal) | CPT/HCPCS: 64615; 95911; J0585 ==

== ENCOUNTER → 2023-03-12 13:41 | Outpatient (BNVA) | payer MEDICARE, MEDICAID, SELFPAY | PROVIDERS: PCP Nurse Practitioner Family; Visit Provider Podiatrist Foot & Ankle Surgery | DX: B35.1 Tinea unguium (principal); I73.9 Peripheral vascular disease, unspecified; G62.9 Polyneuropathy, unspecified; E11.42 Type 2 diabetes mellitus with diabetic polyneuropathy | CPT/HCPCS: 11721 ==

== ENCOUNTER → 2023-03-21 09:26 | Outpatient (BNVA) | payer MEDICARE, MEDICAID, SELFPAY | PROVIDERS: PCP Nurse Practitioner Family; Visit Provider Specialist | DX: G24.3 Spasmodic torticollis (principal) | CPT/HCPCS: 64616; J0585 ==

== ENCOUNTER → 2023-04-11 13:51 | Outpatient (BNVA) | payer MEDICARE, MEDICAID, SELFPAY | PROVIDERS: PCP Nurse Practitioner Family; Visit Provider Specialist | DX: G43.711 Chronic migraine without aura, intractable, with status migrainosus (principal) | CPT/HCPCS: 64615; J0585 ==

== ENCOUNTER 2023-04-19 13:15 | Emergency (ER) | payer MEDICARE, MEDICAID, SELFPAY ==
[2023-04-19] VITALS (7 sets, daily range): BP systolic 122–151; BP diastolic 76–87; PULSE 76–84; RESP 14–22; TEMP 36.4; O2SAT 95–100; BMI 36.0
--- NOTE | 2023-04-19 13:26 | W.ED.EXTPRO ---
HPI - Extremity Problem General: Chief complaint: Extremity Injury, Lower Stated complaint: loc Time Seen by Provider: 04/19/23 13:16 Source: patient and EMS Mode of arrival: EMS Limitations: no limitations History of Present Illness: This patient was transported to the emergency department from half-way facility rehab because of concerns about possible presyncopal episodes. Apparently the patient was undergoing her physical therapy and the patient states that because of the considerable amount of pain that was elicited from her because of the therapy she felt like she was passing out at times. She denies any concomitant chest pain, shortness of breath etc. She apparently has had multiple complex fractures of her hip femur and knee. There is been no recent falls. There is no history of seizures today. There was no other symptoms. EMS reports that she has been alert during their care had a blood sugar in approximately 120 mg percent range and had normal sinus rhythm on monitor. MD Complaint: extremity pain Pain Consistency: now resolved Exacerbating factors: range of motion Associated symptoms: Deny chest pain or fever(s) Review of Systems Const: Denies: fever(s) or chills Eyes: Denies: change in vision ENMT: Denies: throat pain or odynophagia Card: Reports: pre-syncope; Denies: chest pain, palpitations or irregular heart rhythm Resp: Denies: dyspnea, productive cough or non-productive cough GI: Denies: nausea, vomiting or diarrhea Musc: Reports: extremity pain; Denies: neck pain or back pain Neuro: Denies: headache(s), numbness in extremities, weakness in extremities or seizure-like activity [facility] ED PFSH: Medical History Hematoma of right lower extremity Acute blood loss as cause of postoperative anemia Conversion disorder with seizures or convulsions 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 Heart failure Fibromyalgia Fall Femoral distal fracture Urinary tract infection Essential tremor Dizziness and giddiness Hypertension COPD (chronic obstructive pulmonary disease) Diabetes Hyperlipidemia Functional neurological symptom disorder with attacks or seizures Surgical History History of knee replacement History of hip replacement History of History of hysterectomy History of appendectomy History of cholecystectomy Family History Mother CAD (coronary artery disease) Diabetes Social History Smoking and tobacco/nicotine status: current every day tobacco/nicotine user Alcohol intake: current Alcohol intake frequency: other Substance/Drug Use: never Physical Exam Narrative: EXAM NARRATIVE: Patient is alert and in no acute distress appears to be comfortable and answers questions in a goal-directed fashion. Const: COMMON NORMALS: no acute distress, patient oriented x3 and alert GENERAL APPEARANCE: cooperative NUTRITIONAL APPEARANCE: overweight ORIENTATION/CONSCIOUSNESS: Yes awake HENMT: COMMON NORMALS: normocephalic, Normal nasal mucous membranes and turbinates present, moist oral mucous membranes and oropharynx normal HEAD & SCALP: normocephalic NOSE: Normal nasal mucous membranes and turbinates present Neuro: COMMON NORMALS: patient oriented x3 SENSORIUM/ORIENTATION: Yes alert Course Reevaluation(s): Reevaluation #1: Patient states that she feels fine. She has been drinking fluids and otherwise watching television. Repeat examination reveals no evidence of sustained arrhythmia on the monitor and her clinical examination is unremarkable and unchanged and reassuring. Findings were reviewed with her. Does not appear to have any evidence of pertubation in her right leg either in the any region of her ORIF. No evidence of anemia or electrolyte abnormality or again heart rhythm abnormality etc. Think she is suitable for discharge without any evidence of an ongoing emergency medical condition at this time. I think she had an exaggerated pain response to her therapy which probably caused her near syncopal episode. Time: 16:02 Vital Signs: Vital signs: Vital Signs Temperature 97.5 F L 04/19/23 13:15 Pulse Rate 76 04/19/23 15:42 Respiratory Rate 22 H 04/19/23 15:42 Blood Pressure 151/87 04/19/23 15:42 Pulse Oximetry 99 04/19/23 15:42 Oxygen Delivery Me thod Room Air 04/19/23 15:42 MDM - Extremity (Nontraumatic) Medical Decision Making Patient was transported from half-way facility when during her routine physical therapy for her right leg experienced what was called a near syncopal episode. The patient states to me that she felt like the pain exacerbated her feeling like she was going to pass out. She denies any concomitant chest pain, palpitations, shortness of breath. She is in a half-way facility because of a complex fracture of her right leg to include the proximal femur and acetabulum the midshaft as well as her prior right knee arthroplasty. Initial clinical examination did not reveal any findings of concern she was not hypoxic hypoglycemic tachycardic etc. She had no focal findings her right leg was notable for a knee immobilizer but no other significant findings. Workup included resting EKG, telemetry which were reassuring. Radiographs of the right leg showed no evidence of disruption of her prior operative fixation without any new fractures or dislocations etc. Laboratories are reassuring. Stable to be discharged at this time likely having a near syncopal episode as an exaggerated response to her pain. This was discussed reviewed with the patient in detail. Lab Data I reviewed the patient's lab results. 04/19/23 14:49 04/19/23 14:49 Laboratory Results WBC 7.09 10^3/uL (3.29-11.43) 04/19/23 14:49 RBC 3.92 10^6/uL (3.85-5.65) 04/19/23 14:49 Hgb 12.40 g/dL (11.27-16.99) 04/19/23 14:49 Hct 38.8 % (36-47) 04/19/23 14:49 MCV 99.0 fl (85-98) H 04/19/23 14:49 MCH 31.6 pg (27-33) 04/19/23 14:49 MCHC 32.0 g/dL (30-55) 04/19/23 14:49 RDW 13.1 % (12.1-15.1) 04/19/23 14:49 Plt Count 200 10^3/cmm (157-399) 04/19/23 14:49 MPV 11.1 fL (7.4-10.4) H 04/19/23 14:49 Neut % (Auto) 58.7 % 04/19/23 14:49 Lymph % (Auto) 29.9 % 04/19/23 14:49 Traill % (Auto) 8.2 % 04/19/23 14:49 Eos % (Auto) 2.1 % 04/19/23 14:49 Baso % (Auto) 0.8 % 04/19/23 14:49 Neut # (Auto) 4.16 10^3/uL (1.8-7.7) 04/19/23 14:49 Lymph # (Auto) 2.1 10^3/uL (0.8-4.8) 04/19/23 14:49 Traill # (Auto) 0.6 10^3/uL (0.2-0.9) 04/19/23 14:49 Eos # (Auto) 0.2 10^3/uL (0.0-0.8) 04/19/23 14:49 Baso # (Auto) 0.1 10^3/uL (0.0-0.1) 04/19/23 14:49 Nucleated RBC % (auto) 0 % 04/19/23 14:49 Nucleated RBCs # 0.0 /100WBC 04/19/23 14:49 Sodium 141 mmol/L (136-145) 04/19/23 14:49 Potassium 3.8 mmol/L (3.5-5.1) 04/19/23 14:49 Chloride 106 mmol/L (98-107) 04/19/23 14:49 Carbon Dioxide 22 mmol/L (22-29) 04/19/23 14:49 Anion Gap 16.8 (5-19) 04/19/23 14:49 BUN 20 mg/dL (8-23) 04/19/23 14:49 Creatinine 1.2 mg/dL (0.5-0.9) H 04/19/23 14:49 GFR Calculation Not Reportable 04/19/23 14:49 Glucose 113 mg/dL (65-115) 04/19/23 14:49 Calculated Osmolality 295 mOsm/kg (285-295) 04/19/23 14:49 Calcium 9.0 mg/dL (8.5-10.5) 04/19/23 14:49 All radiology interpretation(s) finalized by discharge EKG Data EKG 1: I personally reviewed and interpreted this EKG as follows: Interpretation: Contemporaneous review of resting EKG reveals a ventricular rate of 76 bpm with a normal HI interval normal QRS duration normal corrected QT interval and normal axis. Consistent with normal sinus rhythm baseline irregularity in limb lead III but no acute ST-T wave depressions of concern at this time. Discharge Plan Discharge Patient Disposition: Home Clinical Impression: Syncope, near Fracture of femur Qualifiers: Encounter type: subsequent encounter Fracture type: closed Laterality: right Fracture healing: with routine healing Condition: Stable Prescriptions: No Action pantoprazole 40 mg tablet,delayed release (DR/EC) 40 mg PO DAILY@07 topiramate [Topamax] 100 mg tablet 100 mg PO BID@08,20 albuterol sulfate [Ventolin HFA] 90 mcg/actuation HFA aerosol inhaler 2 puff INHALATION Q6H PRN (Reason: Wheezing) gabapentin 600 mg tablet 600 mg PO BID@08,20 hydrocodone-acetaminophen 5-325 mg tablet 1 tab PO DAILY PRN (Reason: Pain) polyethylene glycol 3350 [Miralax] 17 gram Powder In Packet 17 g PO DAILY PRN (Reason: Constipation) loratadine 10 mg Tablet 10 mg PO DAILY@07 sennosides [senna] 8.6 mg Tablet 8.6 mg PO DAILY PRN (Reason: Constipation) albuterol sulfate 2.5 mg /3 mL (0.083 %) Solution For Nebulization 2.5 mg inhalation Q4H PRN (Reason: Shortness Of Breath) ondansetron HCl [Zofran] 4 mg Tablet 4 mg PO Q6H PRN (Reason: Nausea And Vomiting) acetaminophen [Tylenol 8 Hour] 650 mg Tablet Extended Release 650 mg PO Q6H MDD 4000mg PRN (Reason: Pain) magnesium hydroxide [Milk of Magnesia] 400 mg/5 mL Suspension 30 ml PO DAILY PRN (Reason: Constipation) bisacodyl 10 mg Suppository 10 mg HI DAILY PRN (Reason: Constipation) Enema Disposable 19-7 gram/118 mL Enema 118 ml HI DAILY PRN (Reason: Constipation) Lactobacillus acidophilus Capsule 2 cap PO BID@08,20 bupropion HCl 100 mg tablet 75 mg PO DAILY@07 tizanidine 2 mg tablet 2 mg PO TID miconazole nitrate 2 % Powder 1 applic TOPICAL Q8H PRN (Reason: Rash) fluticasone propionate 50 mcg/actuation spray,suspension 2 spray INTRANASAL DAILY Biofreeze 0.2-3.5 % Gel 1 applic TOPICAL DAILY PRN (Reason: Pain) Rx Instructions: rub in gently and completely Discharge Orders: Discharge ED (Routine); Ordered 04/19/23 Ordered By: Asher Garcia Referrals: Jennie Birmingham, [employer]MER [Primary Care Provider] - Discharge Diet: Usual diet Discharge Activity: As per PT/OT instructions Patient Instructions: Opioid Safety, Pain Management Activity Restrictions/Additional Instructions: As we discussed while you are in the emergency department we did not find any evidence that you had a disruption in the previous repair of your broken bones in your right leg hip and knee. No evidence during your emergency department stay of anything serious. If you have any recurrent symptoms such as chest pain, shortness of breath, weakness numbness or other concerns you are welcome to return to the emergency department for reevaluation. Otherwise continue with your therapy and other interventions at the half-way facility per your attending physician. Coding Level of Care Code ED Shot Dropper for Milton Parry
--- NOTE | 2023-04-19 13:30 | XR_ITS ---
WS: [id number] Right femur and thigh, AP and lateral views, 04/19/2023 Clinical Data: pain; s/p complex fx Comparison: Right thigh and femur, 02/27/2022 Findings: The right hip arthroplasty remains in the same position. The fracture of the distal right femur remai ns reduced with a lateral plate, multiple screws and circumferential wire. The knee arthroplasty shows no periprosthetic fractures. There is questionable loosening of the tibia l post insertion in the proximal tibia but this is not changed. Impression: Stable right hip arthroplasty, right knee arthroplasty and internal fixation of distal right femoral fracture.
--- NOTE | 2023-04-19 13:40 | ECG_ITS ---
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 Measurements Intervals [place] Rate: 76 P: 17 NE: 149 QRS: 19 QRSD: 90 T: -17 QT: 402 QTc: 453 Interpretive Statements SINUS RHYTHM WITH SINUS ARRHYTHMIA MINIMAL ST DEPRESSION [0.025+ mV ST DEPRESSION] Compared to ECG 07/22/2022 16:54:13 ST (T wave) deviation now present Electronically Signed On 04-19-2023 17:43:17 LOOM REPAIRER by Shona Kelley M.D. [id number]
[2023-04-19 15:28] LABS: Basophils # 0.1 10^3/uL (0.0-0.1); Basophils % 0.8 %; Eosinophils # 0.2 10^3/uL (0.0-0.8); Eosinophils % 2.1 %; Hematocrit 38.8 % (36-47); Lymphocytes # 2.1 10^3/uL (0.8-4.8); Lymphocytes % 29.9 %; Mean Corpuscular Hemoglobin 31.6 pg (27-33); Mean Platelet Volume 11.1 fL (7.4-10.4); Monocytes # 0.6 10^3/uL (0.2-0.9); Monocytes % 8.2 %; Neutrophils # 4.16 10^3/uL (1.8-7.7); Neutrophils % 58.7 %; Nucleated Red Blood Cells % 0 %; Platelet Count 200 10^3/cmm (157-399); Red Blood Count 3.92 10^6/uL (3.85-5.65); Red Cell Distribution Width 13.1 % (12.1-15.1); White Blood Count 7.09 10^3/uL (3.29-11.43)
[2023-04-19 15:49] LABS: Anion Gap 16.8 (5-19); Blood Urea Nitrogen 20 mg/dL (8-23); Carbon Dioxide 22 mmol/L (22-29); Chloride 106 mmol/L (98-107); Creatinine Clr Calc Pharmacy 47.9975; Glucose 113 mg/dL (65-115); Osmolality Calculated 295 mOsm/kg (285-295); Potassium 3.8 mmol/L (3.5-5.1); Sodium 141 mmol/L (136-145)
--- NOTE | 2023-04-19 17:37 | PC.NURSE ---
pt discharge delayed due to lack of transport back to facility.
== END 2023-04-19 22:37 | disposition home or self-care (01) ==
PROVIDERS: Emergency Provider Emergency Medicine; PCP Nurse Practitioner Family
DX: R55 Syncope and collapse (principal); S72.91XD Unspecified fracture of right femur, subsequent encounter for closed fracture with routine healing; Z72.0 Tobacco use; I10 Essential (primary) hypertension; J44.9 Chronic obstructive pulmonary disease, unspecified; E11.9 Type 2 diabetes mellitus without complications; E78.5 Hyperlipidemia, unspecified; X58.XXXD Exposure to other specified factors, subsequent encounter
CPT/HCPCS: 73552; 80048; 85025; 93005; 99285

== ENCOUNTER → 2023-06-06 13:52 | Outpatient (BNVA) | payer MEDICARE, MEDICAID, SELFPAY | PROVIDERS: PCP Nurse Practitioner Family; Visit Provider Podiatrist Foot & Ankle Surgery | DX: B35.1 Tinea unguium (principal); I73.9 Peripheral vascular disease, unspecified; G62.9 Polyneuropathy, unspecified; E11.42 Type 2 diabetes mellitus with diabetic polyneuropathy | CPT/HCPCS: 11721 ==

== ENCOUNTER → 2023-06-20 13:38 | Outpatient (BNVA) | payer MEDICARE, MEDICAID, SELFPAY | PROVIDERS: PCP Nurse Practitioner Family; Visit Provider Specialist | DX: G24.3 Spasmodic torticollis (principal); G43.711 Chronic migraine without aura, intractable, with status migrainosus | CPT/HCPCS: 64616; J0585 ==

== ENCOUNTER → 2023-07-11 13:44 | Outpatient (BNVA) | payer MEDICARE, MEDICAID, SELFPAY | PROVIDERS: PCP Nurse Practitioner Family; Visit Provider Specialist | DX: G43.711 Chronic migraine without aura, intractable, with status migrainosus (principal); G24.3 Spasmodic torticollis | CPT/HCPCS: 64615; J0585 ==

== ENCOUNTER → 2023-08-12 13:17 | Outpatient (BNVA) | payer MEDICARE, MEDICAID, SELFPAY | PROVIDERS: PCP Nurse Practitioner Family; Visit Provider Podiatrist Foot & Ankle Surgery | DX: B35.1 Tinea unguium (principal); I73.9 Peripheral vascular disease, unspecified; G62.9 Polyneuropathy, unspecified; E11.42 Type 2 diabetes mellitus with diabetic polyneuropathy | CPT/HCPCS: 11721 ==

== ENCOUNTER → 2023-10-02 09:46 | Outpatient (BNVA) | payer MEDICARE, MEDICAID, SELFPAY | PROVIDERS: PCP Nurse Practitioner Family; Visit Provider Nurse Practitioner Family | DX: I11.0 Hypertensive heart disease with heart failure (principal); I50.32 Chronic diastolic (congestive) heart failure; Z87.891 Personal history of nicotine dependence | CPT/HCPCS: 99214 ==

== ENCOUNTER → 2023-10-03 14:24 | Outpatient (BNVA) | payer MEDICARE, MEDICAID, SELFPAY | PROVIDERS: PCP Nurse Practitioner Family; Visit Provider Specialist | DX: G24.3 Spasmodic torticollis (principal); G43.711 Chronic migraine without aura, intractable, with status migrainosus | CPT/HCPCS: 64616; J0585 ==

== ENCOUNTER → 2023-10-17 09:52 | Outpatient (BNVA) | payer MEDICARE, MEDICAID, SELFPAY | PROVIDERS: PCP Nurse Practitioner Family; Visit Provider Specialist | DX: G24.3 Spasmodic torticollis (principal); G43.711 Chronic migraine without aura, intractable, with status migrainosus; G25.0 Essential tremor | CPT/HCPCS: 64615; 99212; J0585 ==

== ENCOUNTER → 2023-10-24 14:39 | Outpatient (BNVA) | payer MEDICARE, MEDICAID, SELFPAY | PROVIDERS: PCP Nurse Practitioner Family; Visit Provider Podiatrist Foot & Ankle Surgery | DX: B35.1 Tinea unguium (principal); I73.9 Peripheral vascular disease, unspecified; G62.9 Polyneuropathy, unspecified; E11.42 Type 2 diabetes mellitus with diabetic polyneuropathy | CPT/HCPCS: 11721 ==

== ENCOUNTER 2023-12-04 22:33 | Emergency (ER) | payer MEDICARE, MEDICAID, SELFPAY ==
[2023-12-04 22:35] VITALS: BP 244/133; PULSE 76; RESP 16; TEMP 36.8; O2SAT 99; BMI 37.9
[2023-12-04 22:43] VITALS: BP 270/146; PULSE 82; O2SAT 98
--- NOTE | 2023-12-04 22:46 | ED_ITS ---
HPI - Abdominal Pain 2 General: Chief Complaint: Abdominal Pain Stated Complaint: abdominal pain Time Seen by Provider: 12/04/23 22:33 History of Present Illness: Patient presents to the ER with complaints of upper abdominal pain. Patient said it started earlier today and excruciating. Patient did have 2 bowel movements today. Patient does have a history of constipation. Patient denies any nausea vomiting coughs colds fevers chills etc. Patient's pain is reproducible with palpation. Patient is on Protonix. Related Data Home Medications Medication Instructions Recorded Confirmed albuterol sulfate 90 mcg/actuation 2 puff inhalation Q6H PRN Wheezing 06/11/19 10/24/23 aerosol inhaler (Ventolin HFA) pantoprazole 40 mg tablet,delayed 40 mg PO DAILY@06/11/19 10/24/23 release topiramate 100 mg tablet (Topamax) 100 mg PO BID@08,20 06/11/19 10/24/23 gabapentin 600 mg tablet 600 mg PO BID@08,20 07/19/20 10/24/23 loratadine 10 mg tablet 10 mg PO DAILY@11/03/21 10/24/23 polyethylene glycol 3350 17 gram 17 g PO DAILY PRN Constipation 11/03/21 10/24/23 oral powder packet (Miralax) Lactobacillus acidophilus 2 cap PO BID@,07/22/22 10/24/23 acetaminophen 650 mg 650 mg PO Q6H PRN Pain 07/22/22 10/24/23 tablet,extended release (Tylenol 8 Hour) albuterol sulfate 2.5 mg/3 mL 2.5 mg inhalation Q4H PRN 07/22/22 10/24/23 (0.083 %) solution for nebulization Shortness Of Breath bisacodyl 10 mg rectal suppository 10 mg RI DAILY PRN Constipation 07/22/22 10/24/23 magnesium hydroxide 400 mg/5 mL 30 ml PO DAILY PRN Constipation 07/22/22 10/24/23 oral suspension (Milk of Magnesia) ondansetron HCl 4 mg tablet 4 mg PO Q6H PRN Nausea And Vomiting 07/22/22 10/24/23 sennosides 8.6 mg tablet (senna) 8.6 mg PO DAILY PRN Constipation 07/22/22 10/24/23 sodium phosphates 19 gram-7 118 ml RI DAILY PRN Constipation 07/22/22 10/24/23 gram/118 mL enema (Enema Disposable) bupropion HCl 100 mg tablet 75 mg PO DAILY@07 10/11/22 10/24/23 hydrocodone 5 mg-acetaminophen 325 1 tab PO DAILY PRN Pain 03/21/23 10/24/23 mg tablet camphor-menthol 0.2 %-3.5 % 1 applic topical DAILY PRN Pain 04/19/23 10/24/23 topical gel fluticasone propionate 50 2 spray intranasal DAILY 04/19/23 10/24/23 mcg/actuation nasal spray,suspension miconazole nitrate 2 % topical 1 applic topical Q8H PRN Rash 04/19/23 10/24/23 powder tizanidine 2 mg tablet 2 mg PO TID 04/19/23 10/24/23 Previous Rx's Medication Instructions Recorded carbidopa 25 mg-levodopa 100 mg 1 tab PO BID #60 tabs 10/17/23 tablet hydrocodone 5 mg-acetaminophen 325 1 tab PO Q6H PRN pain #14 tabs 12/05/23 mg tablet ondansetron HCl 4 mg tablet 4 mg PO Q8H PRN nausea and 12/05/23 vomiting #14 tabs Allergies Allergy/AdvReac Type Severity Reaction Status Date / Time duloxetine [From Cymbalta] Allergy ADR-Halluci Verified 10/24/23 15:20 nating Penicillins Allergy ALGY-Hives Verified 10/24/23 15:20 Review of Systems 2 General: Reports: 10 or more systems reviewed and unremarkable except in HPI and below PFSH ED 2 PFSH: Medical History Essential tremor Heart failure Hematoma of right lower extremity Acute blood loss as cause of postoperative anemia Conversion disorder with seizures or convulsions 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 Fibromyalgia Fall Femoral distal fracture Urinary tract infection Dizziness and giddiness Hypertension COPD (chronic obstructive pulmonary disease) Diabetes Hyperlipidemia Functional neurological symptom disorder with attacks or seizures Surgical History History of knee replacement History of hip replacement History of History of hysterectomy History of appendectomy History of cholecystectomy Family History Mother CAD (coronary artery disease) Diabetes Social History Smoking and tobacco/nicotine status: former use of tobacco/nicotine Alcohol intake: current Alcohol intake frequency: other Substance/Drug Use: never Physical Exam 2 Const: COMMON NORMALS: no acute distress, average body habitus, patient oriented x3, no limitations, healthy appearing, alert and well nourished HENMT: COMMON NORMALS: normocephalic, atraumatic, hearing grossly normal bilaterally, external ears normal, Normal external nose present and moist oral mucous membranes HEAD & SCALP: normocephalic and atraumatic NOSE: Normal external nose present EXTERNAL EAR: Yes external ears normal Neck/C-Spine: COMMON NORMALS: full ROM, no lymphadenopathy, supple, no meningeal signs, no JVD and Thyroid normal THYROID: Thyroid normal Chest: COMMONS NORMALS: normal inspection of the chest and normal palpation of entire chest wall Resp: COMMON NORMALS: normal respiratory effort, No retractions, No use of accessory muscles and clear to auscultation bilaterally AUSCULTATION: clear to auscultation bilaterally Cardio: COMMON NORMALS: no JVD, regular rate, regular rhythm, S1 normal heart sound present, S2 normal heart sound present, No gallops present (Cardio), No clicks present (Cardio), No murmurs present (Cardio) and No rub (Cardio) R ATE: regular rate RHYTHM: regular rhythm HEART SOUNDS: S1 normal heart sound present and S2 normal heart sound present GI: COMMON NORMALS: Normal to inspection, nondistended, normoactive bowel sounds present, Soft to palpation, No hepatosplenomegaly present and no masses; negative for non-tender (Nontender to palpation across upper abdomen) P ALPATION: Yes Soft to palpation and Yes No hepatosplenomegaly present Neuro: COMMON NORMALS: patient oriented x3 SENSORIUM/ORIENTATION: Yes alert MENINGEAL SIGNS: Yes no meningeal signs Course 2 Vital Signs: Vital signs: Vital Signs Temperature 98.2 F 12/04/23 22:35 Pulse Rate 116 H 12/05/23 02:30 Respiratory Rate 17 12/05/23 00:24 Blood Pressure 194/104 12/05/23 02:30 Pulse Oximetry 98 12/05/23 02:30 Oxygen Delivery Me thod Nasal Cannula 12/05/23 01:00 Oxygen Flow Rate 3 12/05/23 01:00 MDM - Abdominal Pain Medical Decision Making Patient presents to the ER with abdominal pain, lab work was obtained as well as a contrasted CT scan of the abdomen pelvis. White blood cells 9.2, hemoglobin 12.2, BUN/creatinine 26 and 1.2, lipase 46, CT scan showed bilateral nephrolithiasis with no hydro nephrosis. Patient was given Toradol, morphine, Zofran while in the ER. Patient be discharged and follow-up with her PCP within next 7 days. Prescriptions will be given to the patient for pain medicine and nausea medicine. Medical Records I reviewed the patient's medical records. Lab Data I reviewed the patient's lab results. 12/04/23 23:09 12/04/23 23:09 Labs/Radiology: Radiology Impressions Abdomen/Pelvis CT 12/04/23 23:56 IMPRESSION: 1. Bilateral nephrolithiasis with no hydronephrosis. 2. Enlarged fatty liver. 3. Fluid within distal esophagus with mild wall thickening. Correlate for reflux disease/esophagitis. Laboratory Results WBC 9.27 10^3/uL (3.29-11.43) 12/04/23 23:09 RBC 3.99 10^6/uL (3.85-5.65) 12/04/23 23:09 Hgb 12.20 g/dL (11.27-16.99) 12/04/23 23:09 Hct 38.9 % (36-47) 12/04/23 23:09 MCV 97.5 fl (85-98) 12/04/23 23:09 MCH 30.6 pg (27-33) 12/04/23 23:09 MCHC 31.4 g/dL (30-55) 12/04/23 23:09 RDW 13.2 % (12.1-15.1) 12/04/23 23:09 Plt Count 185 10^3/cmm (157-399) 12/04/23 23:09 MPV 11.0 fL (7.4-10.4) H 12/04/23 23:09 Neut % (Auto) 70.8 % 12/04/23 23:09 Lymph % (Auto) 19.6 % 12/04/23 23:09 Bradley % (Auto) 7.1 % 12/04/23 23:09 Eos % (Auto) 1.9 % 12/04/23 23:09 Baso % (Auto) 0.4 % 12/04/23 23:09 Neut # (Auto) 6.55 10^3/uL (1.8-7.7) 12/04/23 23:09 Lymph # (Auto) 1.8 10^3/uL (0.8-4.8) 12/04/23 23:09 Bradley # (Auto) 0.7 10^3/uL (0.2-0.9) 12/04/23 23:09 Eos # (Auto) 0.2 10^3/uL (0.0-0.8) 12/04/23 23:09 Baso # (Auto) 0.0 10^3/uL (0.0-0.1) 12/04/23 23:09 Nucleated RBC % (auto) 0 % 12/04/23 23:09 Nucleated RBCs # 0.0 /100WBC 12/04/23 23:09 Sodium 141 mmol/L (136-145) 12/04/23 23:09 Potassium 3.9 mmol/L (3.5-5.1) 12/04/23 23:09 Chloride 105 mmol/L (98-107) 12/04/23 23:09 Carbon Dioxide 25 mmol/L (22-29) 12/04/23 23:09 Anion Gap 14.9 (5-19) 12/04/23 23:09 BUN 26 mg/dL (8-23) H 12/04/23 23:09 Creatinine 1.2 mg/dL (0.5-0.9) H 12/04/23 23:09 GFR Calculation Not Reportable 12/04/23 23:09 Glucose 153 mg/dL (65-115) H 12/04/23 23:09 Calculated Osmolality 300 mOsm/kg (285-295) H 12/04/23 23:09 Calcium 8.7 mg/dL (8.5-10.5) 12/04/23 23:09 Total Bilirubin 0.5 mg/dL (0.15-1.2) 12/04/23 23:09 AST 64 U/L (0-32) H 12/04/23 23:09 ALT 15 U/L (0-33) 12/04/23 23:09 Alkaline Phosphatase 175 U/L (35-105) H 12/04/23 23:09 Total Protein 7.1 g/dL (6.6-8.7) 12/04/23 23:09 Albumin 4.0 g/dL (3.5-5.2) 12/04/23 23:09 Globulin 3.1 g/dL (1.3-4.6) 12/04/23 23:09 Lipase 46 U/L (13-60) 12/04/23 23:09 All radiology interpretation(s) finalized by discharge Discharge Plan Discharge Patient Disposition: Home Clinical Impression: Bilateral kidney stones Abdominal pain Qualifiers: Abdominal location: upper abdomen, unspecified Qualified Code(s): R10.10 - Upper abdominal pain, unspecified Condition: Stable Prescriptions: New hydrocodone-acetaminophen 5-325 mg tablet 1 tab PO Q6H PRN (Reason: pain) Qty: 14 0RF ondansetron HCl 4 mg tablet 4 mg PO Q8H PRN (Reason: nausea and vomiting) Qty: 14 0RF No Action pantoprazole 40 mg tablet,delayed release (DR/EC) 40 mg PO DAILY@07 topiramate [Topamax] 100 mg tablet 100 mg PO BID@08,20 albuterol sulfate [Ventolin HFA] 90 mcg/actuation HFA aerosol inhaler 2 puff INHALATION Q6H PRN (Reason: Wheezing) gabapentin 600 mg tablet 600 mg PO BID@08,20 hydrocodone-acetaminophen 5-325 mg tablet 1 tab PO DAILY PRN (Reason: Pain) carbidopa-levodopa 25-100 mg tablet 1 tab PO BID Qty: 60 5RF Rx Instructions: 1/2 tablet at breakfast and lunch for 7 days, then a full tablet at breakfast and lunch polyethylene glycol 3350 [Miralax] 17 gram Powder In Packet 17 g PO DAILY PRN (Reason: Constipation) loratadine 10 mg Tablet 10 mg PO DAILY@07 sennosides [senna] 8.6 mg Tablet 8.6 mg PO DAILY PRN (Reason: Constipation) albuterol sulfate 2.5 mg /3 mL (0.083 %) Solution For Nebulization 2.5 mg inhalation Q4H PRN (Reason: Shortness Of Breath) ondansetron HCl [Zofran] 4 mg Tablet 4 mg PO Q6H PRN (Reason: Nausea And Vomiting) acetaminophen [Tylenol 8 Hour] 650 mg Tablet Extended Release 650 mg PO Q6H MDD 4000mg PRN (Reason: Pain) magnesium hydroxide [Milk of Magnesia] 400 mg/5 mL Suspension 30 ml PO DAILY PRN (Reason: Constipation) bisacodyl 10 mg Suppository 10 mg RI DAILY PRN (Reason: Constipation) Enema Disposable 19-7 gram/118 mL Enema 118 ml RI DAILY PRN (Reason: Constipation) Lactobacillus acidophilus Capsule 2 cap PO BID@08,20 bupropion HCl 100 mg tablet 75 mg PO DAILY@07 tizanidine 2 mg tablet 2 mg PO TID miconazole nitrate 2 % Powder 1 applic TOPICAL Q8H PRN (Reason: Rash) fluticasone propionate 50 mcg/actuation spray,suspension 2 spray INTRANASAL DAILY Biofreeze 0.2-3.5 % Gel 1 applic TOPICAL DAILY PRN (Reason: Pain) Rx Instructions: rub in gently and completely Discharge Orders: Discharge ED (Routine); Ordered 12/05/23 Ordered By: Laith Tsang Referrals: Jennie Birmingham FNP [Primary Care Provider] - 1 week Patient Instructions: Abdominal Pain (ED), Kidney Stones Activity Restrictions/Additional Instructions: Pain medicine and nausea medicine have been sent to your pharmacy. Please take them as directed. Please drink plenty of fluids this will help push out the small kidney stones you have in both kidneys. Please follow-up with your family practice physician in the next 7 days for further evaluation and treatment. Thank you for choosing [facility] for your healthcare needs today. Please realize that you were seen in the emergency department and that we are providing you with an emergency medical screening exam and this may not be a complete and all exclusive of all testing and/or medical workup we may need to determine your element or severity of your illness. It is very important that you follow-up as instructed with your primary care provider or specialist for the additional evaluation and to discuss your medical treatment plan. You may return to the emergency department should you have concerns or if your condition changes or worsens in any way. Coding Level of Care Code ED Implementation Coordinator for Milton Parry
[2023-12-04 23:13] VITALS: PULSE 80; O2SAT 100
[2023-12-04 23:26] LABS: Basophils % 0.4 %; Eosinophils # 0.2 10^3/uL (0.0-0.8); Eosinophils % 1.9 %; Hematocrit 38.9 % (36-47); Lymphocytes # 1.8 10^3/uL (0.8-4.8); Lymphocytes % 19.6 %; Mean Corpuscular HGB Conc 31.4 g/dL (30-55); Mean Corpuscular Hemoglobin 30.6 pg (27-33); Mean Corpuscular Volume 97.5 fl (85-98); Monocytes # 0.7 10^3/uL (0.2-0.9); Monocytes % 7.1 %; Neutrophils # 6.55 10^3/uL (1.8-7.7); Neutrophils % 70.8 %; Nucleated Red Blood Cells % 0 %; Platelet Count 185 10^3/cmm (157-399); Red Blood Count 3.99 10^6/uL (3.85-5.65); Red Cell Distribution Width 13.2 % (12.1-15.1); White Blood Count 9.27 10^3/uL (3.29-11.43)
[2023-12-04 23:47] LABS: Alanine Aminotransferase 15 U/L (0-33); Alkaline Phosphatase 175 U/L (35-105); Anion Gap 14.9 (5-19); Aspartate Amino Transferase 64 U/L (0-32); Blood Urea Nitrogen 26 mg/dL (8-23); Calcium 8.7 mg/dL (8.5-10.5); Carbon Dioxide 25 mmol/L (22-29); Chloride 105 mmol/L (98-107); Creatinine Clr Calc Pharmacy 47.7091; Globulin 3.1 g/dL (1.3-4.6); Glucose 153 mg/dL (65-115); Lipase 46 U/L (13-60); Osmolality Calculated 300 mOsm/kg (285-295); Potassium 3.9 mmol/L (3.5-5.1); Sodium 141 mmol/L (136-145); Total Bilirubin 0.5 mg/dL (0.15-1.2); Total Protein 7.1 g/dL (6.6-8.7)
--- NOTE | 2023-12-04 23:56 | CTR_ITS ---
PROCEDURE INFORMATION: Exam: CT Abdomen And Pelvis With Contrast Exam date and time: 12/05/2023 12:47 AM Age: 77 years old Clinical indication: Abdominal pain; Generalized; Prior surgery; Surgery date: 6+ months; Surgery type: Appy, csection, choley, hysterectomy, hip replacements; Additional info: Upper abdominal pain, TECHNIQUE: Imaging protocol: Computed tomography of the abdomen and pelvis with contrast. Radiation optimization: All CT scans at this facility use at least one of these dose optimization techniques: automated exposure control; mA and/or kV adjustment per patient size (includes targeted exams where dose is matched to clinical indication); or iterative reconstruction. Contrast material: OMNI 350; Contrast volume: 100 ml; Contrast route: INTRAVENOUS (IV); COMPARISON: CT angio chest w abd pel w con 11/03/2021 5:57 PM RADIATION DOSE METRICS: Total DLP (mGy-cm): 1080.33 FINDINGS: Limitations: Significant beam hardening artifacts in the pelvis limiting evaluation. Esophagus: Fluid within distal esophagus with mild wall thickening. Liver: Enlarged liver with diffuse fatty infiltration. Gallbladder and biliary ducts: There is biliary distension, presumed from post cholecystectomy reservoir effect. Appearance is similar to prior. Pancreas: Unremarkable. No ductal dilation. Spleen: Stable too small to characterize hypodense lesions within the spleen. Adrenal glands: Unremarkable. No mass. Kidneys and ureters: Similar bilateral nephrolithiasis without hydronephrosis. Stable left renal cysts and bilateral too small to characterize hypodense lesions. Stomach and bowel: Unremarkable. No obstruction. No significant mucosal thickening. Appendix: Status post appendectomy. Intraperitoneal space: No free air. No significant fluid collection. Vasculature: No abdominal aortic aneurysm. Lymph nodes: No enlarged lymph nodes. Urinary bladder: Unremarkable as visualized. Reproductive: Status post hysterectomy. Bones/joints: Status post bilateral hip arthroplasty. Stable compression deformity at T12 and T8. Soft tissues: No bowel containing hernia. CT/CT abdomen pelvis w con* [id number] IMPRESSION: 1. Bilateral nephrolithiasis with no hydronephrosis. 2. Enlarged fatty liver. 3. Fluid within distal esophagus with mild wall thickening. Correlate for reflux disease/esophagitis.
[2023-12-05] VITALS (17 sets, daily range): BP systolic 100–198; BP diastolic 57–150; PULSE 80–118; RESP 17; O2SAT 95–100
[2023-12-05] MEDS: lidocaine 2% viscous 15 ML, aluminum-mag hydrox-simethicon 30 ML, sucralfate oral liq 1 GM PO (00:16)
[2023-12-05] MEDS: cloNIDine 0.1 mg Tablet 0.2 MG PO (00:21)
[2023-12-05] MEDS: morphine 4 mg/mL SDV 1 mL IVP (00:24)
[2023-12-05] MEDS: iohexol 350 mg/mL 500 mL Btl (per mL) IV (01:14)
[2023-12-05] MEDS: ondansetron 2 mg/ML SDV 2 mL 4 MG IVP (01:53)
[2023-12-05] MEDS: hyDRALAzine 20 mg/mL INJ 1 mL 10 MG IVP (02:42)
[2023-12-05] MEDS: ketorolac 30 mg/mL INJ IVP (02:46)
== END 2023-12-05 09:20 | disposition home or self-care (01) ==
PROVIDERS: Emergency Provider Emergency Medicine; PCP Nurse Practitioner Family
DX: N20.0 Calculus of kidney (principal)
CPT/HCPCS: 36415; 74177; 80053; 83690; 85025; 96374; 96375; 99285; J0360; J1885; J2270; J2405

== ENCOUNTER → 2024-01-01 09:42 | Outpatient (BNVA) | payer MEDICARE, MEDICAID, SELFPAY | PROVIDERS: PCP Nurse Practitioner Family; Visit Provider Podiatrist Foot & Ankle Surgery | DX: B35.1 Tinea unguium (principal); I73.9 Peripheral vascular disease, unspecified; E11.42 Type 2 diabetes mellitus with diabetic polyneuropathy; G62.9 Polyneuropathy, unspecified | CPT/HCPCS: 11721 ==

== ENCOUNTER → 2024-01-08 15:00 | Outpatient (BNVA) | payer MEDICARE, MEDICAID, SELFPAY | PROVIDERS: PCP Nurse Practitioner Family; Visit Provider Specialist | DX: G43.711 Chronic migraine without aura, intractable, with status migrainosus (principal); G24.3 Spasmodic torticollis; G25.0 Essential tremor | CPT/HCPCS: 64616; 99213; J0585 ==

== ENCOUNTER → 2024-02-14 11:45 | Outpatient (BNVA) | payer MEDICARE, MEDICAID, SELFPAY | PROVIDERS: PCP Nurse Practitioner Family; Visit Provider Specialist | DX: G43.711 Chronic migraine without aura, intractable, with status migrainosus (principal); G24.3 Spasmodic torticollis; G25.0 Essential tremor | CPT/HCPCS: 64615; 99213; J0585 ==

== ENCOUNTER 2024-03-09 13:16 | Emergency (ER) | payer MEDICARE, MEDICAID, SELFPAY ==
[2024-03-09 13:22] VITALS: BMI 39.4
--- NOTE | 2024-03-09 13:28 | W.ED.SEIZURE ---
HPI - Seizure General: Chief Complaint: Seizure Stated Complaint: seizures Time Seen by Provider: 03/09/24 13:17 History of Present Illness: HPI Narrative: Patient is a 78-year-old female presenting from [facility] due to concern of seizure-like activity at approximately 1230. Initial report stated 30 minutes of seizure like activity, however in my discussion with EMS it was reported to be about 15 minutes. Per the report no bladder or bowel incontinence, no blood in the mouth suggestive of biting her tongue. Unclear what her eye movements were. In speaking to the patient she states that she was sitting down when she began to feel shaky all over, then blacked out and when she came to, she was on the floor with people standing around her. Prior to that she went to a garage sale type events at her prison where she felt unusually hot. She states that episodes like these have happened many times before in the past. 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 She states the last time this happened was last summer, and she was told it was likely not a seizure after being worked up at the hospital. Her last head scan was reportedly over a year ago. She is not sure why she is on Topamax. Seizure History: No Associated symptoms: Deny chest pain, chills or fever(s) Related Data Home Medications ?Medication ?Instructions ?Recorded ?Confirmed albuterol sulfate 90 mcg/actuation 2 puff inhalation Q6H PRN Wheezing 06/11/19 03/09/24 aerosol inhaler (Ventolin HFA) pantoprazole 40 mg tablet,delayed 40 mg PO DAILY@06/11/19 03/09/24 release topiramate 100 mg tablet (Topamax) 100 mg PO BID@06/11/19 03/09/24 loratadine 10 mg tablet 10 mg PO DAILY@11/03/21 03/09/24 polyethylene glycol 3350 17 gram 17 g PO DAILY PRN Constipation 11/03/21 03/09/24 oral powder packet (Miralax) Lactobacillus acidophilus 2 cap PO BID@,07/22/22 03/09/24 acetaminophen 650 mg 650 mg PO Q6H PRN Pain 07/22/22 03/09/24 tablet,extended release (Tylenol 8 Hour) albuterol sulfate 2.5 mg/3 mL 2.5 mg inhalation Q4H PRN 07/22/22 03/09/24 (0.083 %) solution for nebulization Shortness Of Breath bisacodyl 10 mg rectal suppository 10 mg KY DAILY PRN Constipation 07/22/22 03/09/24 magnesium hydroxide 400 mg/5 mL 30 ml PO DAILY PRN Constipation 07/22/22 03/09/24 oral suspension (Milk of Magnesia) sennosides 8.6 mg tablet (senna) 8.6 mg PO DAILY PRN Constipation 07/22/22 03/09/24 sodium phosphates 19 gram-7 118 ml KY DAILY PRN Constipation 07/22/22 03/09/24 gram/118 mL enema (Enema Disposable) hydrocodone 5 mg-acetaminophen 325 1 tab PO TID Pain 03/21/23 03/09/24 mg tablet miconazole nitrate 2 % topical 1 applic topical Q8H PRN redness 04/19/23 03/09/24 powder or irritation tizanidine 2 mg tablet 2 mg PO TID 04/19/23 03/09/24 bupropion HCl 75 mg tablet 75 mg PO DAILY 12/05/23 03/09/24 diclofenac sodium 1 % topical gel See Rx Instructions .Route .COMPLEX 12/05/23 03/09/24 (Voltaren Arthritis Pain) gabapentin 300 mg capsule 900 mg PO QPM 12/05/23 03/09/24 mv-mn-folic 200 mcg-vit K 15 1 cap PO BID 12/05/23 03/09/24 mcg-lutein 5 mg-zeaxanthin 1 mg capsule (PreserVision AREDS 2 Plus Multivit) polyvinyl alcohol-povidone (PF) 1 drp ophthalmic (eye) BID 12/05/23 03/09/24 1.4 %-0.6 % eye drops in a dropperette (Refresh Classic (PF)) zinc chloride 0.15 %-benzyl See Rx Instructions .Route .COMPLEX 12/05/23 03/09/24 alcohol 0.27 % mouthwash (Orajel 2X Toothache Rinse) benzocaine 20 % mucosal gel 1 applic mucous membrane Q6H PRN 03/09/24 03/09/24 (Anbesol (benzocaine) Maximum Pain Strength) carbidopa 25 mg-levodopa 100 mg 1 tab PO TID 03/09/24 03/09/24 tablet corn starch (bulk) 1 ea miscellaneous DAILY 03/09/24 03/09/24 fluticasone propionate 50 2 spray intranasal DAILY 03/09/24 03/09/24 mcg/actuation nasal spray,suspension gabapentin 300 mg capsule 300 mg PO BID 03/09/24 03/09/24 menthol 4 % topical gel (Biofreeze 1 applic topical Q4H 03/09/24 03/09/24 (menthol)) ondansetron HCl 4 mg tablet 4 mg PO Q6H PRN nausea and vomiting 03/09/24 03/09/24 Allergies Allergy/AdvReac Type Severity Reaction Status Date / Time duloxetine (From Cymbalta) Allergy ADR-Halluci Verified 02/14/24 12:00 nating Penicillins Allergy ALGY-Hives Verified 02/14/24 12:00 Review of Systems Const: Denies: fever(s) or chills Card: Denies: chest pain Resp: Denies: dyspnea GI: Denies: abdominal pain : Denies: dysuria, urinary frequency or urinary urgency Musc: Denies: neck pain or back pain Skin/Breast: Denies: rash PFSH ED PFSH: Medical History Essential tremor Heart failure Hematoma of right lower extremity Acute blood loss as cause of postoperative anemia Conversion disorder with seizures or convulsions 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 Fibromyalgia Fall Femoral distal fracture Urinary tract infection Dizziness and giddiness Hypertension COPD (chronic obstructive pulmonary disease) Diabetes Hyperlipidemia Functional neurological symptom disorder with attacks or seizures Surgical History History of knee replacement History of hip replacement History of History of hysterectomy History of appendectomy History of cholecystectomy Family History Mother CAD (coronary artery disease) Diabetes Social History Smoking and tobacco/nicotine status: never used tobacco/nicotine Alcohol intake: current Alcohol intake frequency: other Substance/Drug Use: never Physical Exam Const: COMMON NORMALS: no acute distress GENERAL APPEARANCE: cooperative and comfortable ORIENTATION/CONSCIOUSNESS: Yes awake, Yes oriented to person, Yes oriented to place and Yes oriented to time HENMT: COMMON NORMALS: normocephalic, atraumatic and hearing grossly normal bilaterally HEAD & SCALP: normocephalic and atraumatic Resp: COMMON NORMALS: normal respiratory effort, No retractions, No use of accessory muscles and clear to auscultation bilaterally AUSCULTATION: clear to auscultation bilaterally Cardio: COMMON NORMALS: regular rate, regular rhythm and No murmurs present (Cardio) RATE: regular rate RHYTHM: regular rhythm GI: COMMON NORMALS: Soft to palpation and No hepatosplenomegaly present AUSCULTATION: Yes normoactive bowel sounds PALPATION: Yes Soft to palpation, No Tenderness to palpation present (GI), No Guarding due to palpation present (GI) and Yes No hepatosplenomegaly present Extremity: COMMON NORMALS: normal to inspection, capillary refill normal, no clubbing, cyanosis or edema, no calf tenderness and no pedal edema Neuro: SENSORIUM/ORIENTATION: Yes oriented to person, Yes oriented to place and Yes oriented to time Skin: COMMON NORMALS: no rashes or lesions noted GENERAL SKIN EXAM: no rashes or lesions noted Course Vital Signs: Vital signs: Vital Signs Temperature 97.9 F 03/09/24 13:32 Pulse Rate 89 03/09/24 18:35 Respiratory Rate 16 03/09/24 13:32 Blood Pressure 177/89 03/09/24 18:35 Pulse Oximetry 98 03/09/24 18:35 Oxygen Delivery Me thod Room Air 03/09/24 13:32 MDM - Seizure Lab Data 03/09/24 14:29 03/09/24 14:29 Labs: Laboratory Results WBC 7.02 10^3/uL (3.29-11.43) 03/09/24 14:29 RBC 4.11 10^6/uL (3.85-5.65) 03/09/24 14:29 Hgb 12.40 g/dL (11.27-16.99) 03/09/24 14:29 Hct 39.8 % (36-47) 03/09/24 14:29 MCV 96.8 fl (85-98) 03/09/24 14:29 MCH 30.2 pg (27-33) 03/09/24 14:29 MCHC 31.2 g/dL (30-55) 03/09/24 14: RDW 13.6 % (12.1-15.1) 03/09/24 14: Plt Count 193 10^3/cmm (157-399) 03/09/24 14:29 MPV 10.7 fL (7.4-10.4) H 03/09/24 14: Neut % (Auto) 52.0 % 03/09/24 14:29 Lymph % (Auto) 36.0 % 03/09/24 14:29 Baker % (Auto) 8.0 % 03/09/24 14:29 Eos % (Auto) 3.0 % 03/09/24 14: Baso % (Auto) 0.9 % 03/09/24 14: Neut # (Auto) 3.65 10^3/uL (1.8-7.7) 03/09/24 14:29 Lymph # (Auto) 2.5 10^3/uL (0.8-4.8) 03/09/24 14:29 Baker # (Auto) 0.6 10^3/uL (0.2-0.9) 03/09/24 14:29 Eos # (Auto) 0.2 10^3/uL (0.0-0.8) 03/09/24 14: Baso # (Auto) 0.1 10^3/uL (0.0-0.1) 03/09/24 14:29 Nucleated RBC % (auto) 0 % 03/09/24 14: Nucleated RBCs # 0.0 /100WBC 03/09/24 14:29 Sodium 140 mmol/L (136-145) 03/09/24 14:29 Potassium 3.8 mmol/L (3.5-5.1) 03/09/24 14: Chloride 103 mmol/L (98-107) 03/09/24 14: Carbon Dioxide 24 mmol/L (22-29) 03/09/24 14:29 Anion Gap 16.8 (5-19) 03/09/24 14:29 BUN 22 mg/dL (8-23) 03/09/24 14: Creatinine 1.0 mg/dL (0.5-0.9) H 03/09/24 14:29 GFR Calculation Not Reportable 03/09/24 14:29 Glucose 115 mg/dL (65-115) 03/09/24 14:29 Calculated Osmolality 294 mOsm/kg (285-295) 03/09/24 14:29 Lactic Acid 1.8 mmol/L (0.5-2.2) 03/09/24 14:29 Calcium 8.9 mg/dL (8.5-10.5) 03/09/24 14:29 Total Bilirubin 0.2 mg/dL (0.15-1.2) 03/09/24 14:29 AST 11 U/L (0-32) 03/09/24 14:29 ALT < 5 U/L (0-33) 03/09/24 14: Alkaline Phosphatase 122 U/L (35-105) H 03/09/24 14:29 Ammonia 23 umol/L (11-51) 03/09/24 14:29 Creatine Kinase 37 U/L (26-192) 03/09/24 14:29 Total Protein 7.2 g/dL (6.6-8.7) 03/09/24 14:29 Albumin 3.9 g/dL (3.5-5.2) 03/09/24 14:29 Globulin 3.3 g/dL (1.3-4.6) 03/09/24 14:29 All radiology interpretation(s) finalized by discharge Discharge Plan Discharge Patient Disposition: Home Clinical Impression: Syncope Condition: Stable Prescriptions: No Action pantoprazole 40 mg tablet,delayed release (DR/EC) 40 mg PO DAILY@07 topiramate [Topamax] 100 mg tablet 100 mg PO BID@08,20 albuterol sulfate [Ventolin HFA] 90 mcg/actuation HFA aerosol inhaler 2 puff INHALATION Q6H PRN (Reason: Wheezing) hydrocodone-acetaminophen 5-325 mg tablet 1 tab PO TID bupropion HCl 75 mg tablet 75 mg PO DAILY gabapentin 300 mg capsule 900 mg PO QPM Refresh Classic (PF) 1.4-0.6 % Dropperette 1 drp OPHTHALMIC (EYE) BID diclofenac sodium [Voltaren Arthritis Pain] 1 % Gel See Rx Instructions .ROUTE .COMPLEX Rx Instructions: Apply to right hip topically every 8 hours as needed for pain. PreserVision AREDS 2 Plus MV 200 mcg-15 mcg- 5 mg-1 mg Capsule 1 cap PO BID Orajel 2X Toothache Rinse 0.15-0.27 % Mouthwash See Rx Instructions .ROUTE .COMPLEX Rx Instructions: Apply to mouth/gum affected area topically every 6 hours as needed for pain. polyethylene glycol 3350 [Miralax] 17 gram Powder In Packet 17 g PO DAILY PRN (Reason: Constipation) loratadine 10 mg Tablet 10 mg PO DAILY@07 sennosides [senna] 8.6 mg Tablet 8.6 mg PO DAILY PRN (Reason: Constipation) albuterol sulfate 2.5 mg /3 mL (0.083 %) Solution For Nebulization 2.5 mg inhalation Q4H PRN (Reason: Shortness Of Breath) acetaminophen [Tylenol 8 Hour] 650 mg Tablet Extended Release 650 mg PO Q6H MDD 4000mg PRN (Reason: Pain) magnesium hydroxide [Milk of Magnesia] 400 mg/5 mL Suspension 30 ml PO DAILY PRN (Reason: Constipation) bisacodyl 10 mg Suppository 10 mg KY DAILY PRN (Reason: Constipation) Enema Disposable 19-7 gram/118 mL Enema 118 ml KY DAILY PRN (Reason: Constipation) Lactobacillus acidophilus Capsule 2 cap PO BID@08,20 tizanidine 2 mg tablet 2 mg PO TID miconazole nitrate 2 % Powder 1 applic TOPICAL Q8H PRN (Reason: redness or irritation) gabapentin 300 mg Capsule 300 mg PO BID carbidopa-levodopa 25-100 mg Tablet 1 tab PO TID Anbesol (benzocaine) Max Str 20 % Gel 1 applic MUCOUS MEMBRANE Q6H PRN (Reason: Pain) fluticasone propionate 50 mcg/actuation spray,suspension 2 spray INTRANASAL DAILY corn starch (bulk) [Baby Powder] Powder 1 ea miscellaneous DAILY Rx Instructions: apply to skin folds topically every shift Biofreeze (menthol) 4 % Gel 1 applic TOPICAL Q4H ondansetron HCl 4 mg tablet 4 mg PO Q6H PRN (Reason: nausea and vomiting) Discharge Orders: Discharge ED (Routine); Ordered 03/09/24 Ordered By: Jose Clark Other Ambulatory Orders: CV. echo complete* [id number] (Routine) Timeframe: 2 Weeks Facility: [facility] - Location: Radiology Ordered By: Jose Clark Referrals: Jennie Birmingham FNP [Primary Care Provider] - Discharge Diet: Advance as tolerated Discharge Activity: Resume usual activity Patient Instructions: Opioid Safety, Pain Management Activity Restrictions/Additional Instructions: You were seen in the ED after seizure-like episode. You had blood work done that suggests you most likely fainted and did not have a seizure. Continue to stay well-hydrated. 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
--- NOTE | 2024-03-09 13:30 | PC.PHAR ---
patient is from [facility] med list in chart to use
[2024-03-09 13:32] VITALS: BP 181/102; PULSE 99; RESP 16; TEMP 36.6; O2SAT 99
--- NOTE | 2024-03-09 13:33 | ECG_ITS ---
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 Measurements Intervals [place] Rate: 80 P: 0 GA: 0 QRS: 27 QRSD: 90 T: 186 QT: 373 QTc: 433 Interpretive Statements SUPRAVENTRICULAR RHYTHM NONSPECIFIC ST & T-WAVE ABNORMALITY Compared to ECG 04/19/2023 13:40:19 Supraventricular rhythm now present T-wave abnormality now present Sinus rhythm no longer present Sinus arrhythmia no longer present ST (T wave) deviation no longer present Electronically Signed On 03-12-2024 12:41:20 [employer] by Ryan Jimenez M.D. [email or web address]
[2024-03-09 14:39] LABS: Basophils # 0.1 10^3/uL (0.0-0.1); Basophils % 0.9 %; Eosinophils # 0.2 10^3/uL (0.0-0.8); Hematocrit 39.8 % (36-47); Lymphocytes # 2.5 10^3/uL (0.8-4.8); Mean Corpuscular HGB Conc 31.2 g/dL (30-55); Mean Corpuscular Hemoglobin 30.2 pg (27-33); Mean Corpuscular Volume 96.8 fl (85-98); Mean Platelet Volume 10.7 fL (7.4-10.4); Monocytes # 0.6 10^3/uL (0.2-0.9); Neutrophils # 3.65 10^3/uL (1.8-7.7); Nucleated Red Blood Cells % 0 %; Platelet Count 193 10^3/cmm (157-399); Red Blood Count 4.11 10^6/uL (3.85-5.65); Red Cell Distribution Width 13.6 % (12.1-15.1); White Blood Count 7.02 10^3/uL (3.29-11.43)
[2024-03-09 14:56] LABS: Lactic Sepsis W/Reflex 1.8 mmol/L (0.5-2.2)
[2024-03-09 14:58] LABS: Alanine Aminotransferase < 5 U/L (0-33); Albumin Level 3.9 g/dL (3.5-5.2); Alkaline Phosphatase 122 U/L (35-105); Anion Gap 16.8 (5-19); Aspartate Amino Transferase 11 U/L (0-32); Blood Urea Nitrogen 22 mg/dL (8-23); Calcium 8.9 mg/dL (8.5-10.5); Carbon Dioxide 24 mmol/L (22-29); Chloride 103 mmol/L (98-107); Creatine Phosphokinase 37 U/L (26-192); Creatinine Clr Calc Pharmacy 53.6866; Globulin 3.3 g/dL (1.3-4.6); Glucose 115 mg/dL (65-115); Osmolality Calculated 294 mOsm/kg (285-295); Potassium 3.8 mmol/L (3.5-5.1); Sodium 140 mmol/L (136-145); Total Bilirubin 0.2 mg/dL (0.15-1.2); Total Protein 7.2 g/dL (6.6-8.7)
[2024-03-09 15:01] LABS: Ammonia 23 umol/L (11-51)
[2024-03-09 16:11] VITALS: BP 161/93; PULSE 86; O2SAT 95
[2024-03-09 17:44] VITALS: BP 155/115; PULSE 83; O2SAT 99
[2024-03-09 18:35] VITALS: BP 177/89; PULSE 89; O2SAT 98
== END 2024-03-09 18:59 | disposition home or self-care (01) ==
PROVIDERS: Emergency Provider Family Medicine; PCP Nurse Practitioner Family
DX: R55 Syncope and collapse (principal); E11.9 Type 2 diabetes mellitus without complications; E78.5 Hyperlipidemia, unspecified; J44.9 Chronic obstructive pulmonary disease, unspecified; I11.0 Hypertensive heart disease with heart failure; I50.9 Heart failure, unspecified
CPT/HCPCS: 80053; 82140; 82550; 83605; 85025; 93005; 99284

== ENCOUNTER → 2024-04-03 09:40 | Outpatient (BNVA) | payer MEDICARE, MEDICAID, SELFPAY | PROVIDERS: PCP Nurse Practitioner Family; Visit Provider Specialist | DX: G24.3 Spasmodic torticollis (principal); G43.711 Chronic migraine without aura, intractable, with status migrainosus; G25.0 Essential tremor; F44.5 Conversion disorder with seizures or convulsions | CPT/HCPCS: 64616; 99215; J0585 ==

== ENCOUNTER → 2024-05-06 10:41 | Outpatient (BNVA) | payer MEDICARE, MEDICAID, SELFPAY | PROVIDERS: PCP Nurse Practitioner Family; Visit Provider Podiatrist Foot & Ankle Surgery | DX: E11.42 Type 2 diabetes mellitus with diabetic polyneuropathy (principal); B35.1 Tinea unguium; I73.9 Peripheral vascular disease, unspecified; G62.9 Polyneuropathy, unspecified | CPT/HCPCS: 11721 ==

== ENCOUNTER → 2024-05-19 10:47 | Outpatient (BNVA) | payer MEDICARE, MEDICAID, SELFPAY | PROVIDERS: PCP Nurse Practitioner Family; Referring Provider Specialist; Visit Provider Specialist | DX: R56.9 Unspecified convulsions (principal) | CPT/HCPCS: 95819 ==

== ENCOUNTER → 2024-05-22 10:52 | Outpatient (BNVA) | payer MEDICARE, MEDICAID, SELFPAY | PROVIDERS: PCP Nurse Practitioner Family; Visit Provider Specialist | DX: G43.711 Chronic migraine without aura, intractable, with status migrainosus (principal) | CPT/HCPCS: 64615; J0585; J9999 ==

== ENCOUNTER → 2024-07-08 10:44 | Outpatient (BNVA) | payer MEDICARE, MEDICAID, SELFPAY | PROVIDERS: PCP Nurse Practitioner Family; Visit Provider Podiatrist Foot & Ankle Surgery | DX: E11.42 Type 2 diabetes mellitus with diabetic polyneuropathy (principal); B35.1 Tinea unguium; I73.9 Peripheral vascular disease, unspecified; G62.9 Polyneuropathy, unspecified; M76.61 Achilles tendinitis, right leg; M72.2 Plantar fascial fibromatosis | CPT/HCPCS: 11721; 99213 ==

== ENCOUNTER → 2024-07-10 09:36 | Outpatient (BNVA) | payer MEDICARE, MEDICAID, SELFPAY | PROVIDERS: PCP Nurse Practitioner Family; Visit Provider Specialist | DX: G24.3 Spasmodic torticollis (principal) | CPT/HCPCS: 64616; 99213; J0585; J9999 ==

== ENCOUNTER → 2024-09-03 10:46 | Outpatient (BNVA) | payer MEDICARE, MEDICAID, SELFPAY | PROVIDERS: PCP Nurse Practitioner Family; Visit Provider Specialist | DX: G43.711 Chronic migraine without aura, intractable, with status migrainosus (principal); F44.5 Conversion disorder with seizures or convulsions; G24.3 Spasmodic torticollis; G25.0 Essential tremor | CPT/HCPCS: 64615; 99213; J0585; J9999 ==

== ENCOUNTER → 2024-09-10 10:56 | Outpatient (BNVA) | payer MEDICARE, MEDICAID, SELFPAY | PROVIDERS: PCP Nurse Practitioner Family; Visit Provider Podiatrist Foot & Ankle Surgery | DX: E11.42 Type 2 diabetes mellitus with diabetic polyneuropathy (principal); B35.1 Tinea unguium; I73.9 Peripheral vascular disease, unspecified; G62.9 Polyneuropathy, unspecified | CPT/HCPCS: 11721 ==

== ENCOUNTER → 2024-10-15 08:40 | Outpatient (BNVA) | payer MEDICARE, MEDICAID, SELFPAY | PROVIDERS: PCP Nurse Practitioner Family; Visit Provider Specialist | DX: G24.3 Spasmodic torticollis (principal) | CPT/HCPCS: 64616; 99212; J0585; J9999 ==

== ENCOUNTER → 2024-11-18 10:18 | Outpatient (BNVA) | payer MEDICARE, MEDICAID, SELFPAY | PROVIDERS: PCP Nurse Practitioner Family; Visit Provider Podiatrist Foot & Ankle Surgery | DX: E11.42 Type 2 diabetes mellitus with diabetic polyneuropathy (principal); B35.1 Tinea unguium; E11.8 Type 2 diabetes mellitus with unspecified complications; I73.9 Peripheral vascular disease, unspecified; G62.9 Polyneuropathy, unspecified | CPT/HCPCS: 11721 ==

== ENCOUNTER → 2024-11-26 09:47 | Outpatient (BNVA) | payer MEDICARE, MEDICAID, SELFPAY | PROVIDERS: PCP Nurse Practitioner Family; Visit Provider Orthopaedic Surgery | DX: M25.551 Pain in right hip (principal); Z96.651 Presence of right artificial knee joint | CPT/HCPCS: 73502; 99204 ==

== ENCOUNTER → 2024-12-10 09:07 | Outpatient (BNVA) | payer MEDICARE, MEDICAID, SELFPAY | PROVIDERS: PCP Nurse Practitioner Family; Visit Provider Specialist | DX: G43.711 Chronic migraine without aura, intractable, with status migrainosus (principal); F44.5 Conversion disorder with seizures or convulsions; G24.3 Spasmodic torticollis; G25.0 Essential tremor | CPT/HCPCS: 64615; J0585; J9999 ==

== ENCOUNTER → 2025-01-14 10:16 | Outpatient (BNVA) | payer MEDICARE, MEDICAID, SELFPAY | PROVIDERS: PCP Nurse Practitioner Family; Visit Provider Specialist | DX: G24.3 Spasmodic torticollis (principal); F44.5 Conversion disorder with seizures or convulsions; G43.711 Chronic migraine without aura, intractable, with status migrainosus; G25.0 Essential tremor | CPT/HCPCS: 64616; J0585; J9999 ==

== ENCOUNTER → 2025-01-28 10:07 | Outpatient (BNVA) | payer MEDICARE, MEDICAID, SELFPAY | PROVIDERS: PCP Nurse Practitioner Family; Visit Provider Podiatrist Foot & Ankle Surgery | DX: E11.9 Type 2 diabetes mellitus without complications (principal) | CPT/HCPCS: 36415; 83036 ==